=== PATIENT | male | born 1950 | race Caucasian/White ===

== ENCOUNTER 2018-01-08 16:14 | Inpatient (IN) | payer MEDICARE, BC ==
[2018-01-08] MEDS ORDERED: Aspirin 81 MG Tab.Chew PO ONE (16:27)
[2018-01-08] MEDS ORDERED: Sodium Chloride 0.9% 10 ML Syringe FLUSH PRN (16:27)
[2018-01-08] MEDS ORDERED: Sodium Chloride 0.9% 1,000 ML IV SCH ×2 (16:30→20:15)
[2018-01-08] MEDS ORDERED: Diltiazem 25 MG/5 ML SDV IVPUSH ONE ×2 (16:35→17:16)
[2018-01-08] MEDS ORDERED: Diltiazem 125 MG in Sodium Chloride 0.9% 100 ML IV SCH ×2 (16:45→20:30)
--- NOTE | 2018-01-08 17:11 | EDM.PDOC ---
ED HPI GENERAL MEDICAL PROBLEM - General Chief Complaint: Chest Pain Stated Complaint: CHEST PAINS/JAW PAIN Time Seen by Provider: 01/08/18 16:27 Source of Information: Reports: Patient, Family History Limitations: Reports: No Limitations - History of Present Illness INITIAL COMMENTS - FREE TEXT/NARRATIVE: The patient presents with chest pain and palpitations. He was mowing the lawn today and doing some yard work. He came in to sit down and noticed his heart started racing. He has chest pain and shortness of breath. He has a history of A-fib. He was diagnosed a few years ago. He is on aspirin, cardizem, and metoprolol. 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 He says he goes in and out of it. He has no fever, chills, cough, abdominal pain, nausea or vomiting. Onset: Gradual Duration: Minutes: Location: Reports: Chest Quality: Reports: Pressure Severity: Moderate Improves with: Reports: None Worsens with: Reports: None Associated Symptoms: Reports: Chest Pain, Shortness of Breath. Denies: Cough, Fever/Chills, Headaches, Nausea/Vomiting Treatments [employer]: Reports: Other (see below) Other Treatments [employer]: pt is on baby aspirin Chest Pain Score (Numeric/FACES): 8 - Related Data Allergies Allergy/AdvReac Type Severity Reaction Status Date / Time No Known Allergies Allergy Verified 01/09/15 10:08 Home Meds: Home Meds Aspirin [Roseanne Chewable Aspirin] 81 mg PO DAILY 02/18/14 [History] Hydrochlorothiazide 25 mg PO DAILY 02/18/14 [History] Metoprolol Tartrate 100 mg PO DAILY 02/18/14 [History] Multivitamin/Iron/Folic Acid [Centrum Complete Multivit] 1 each PO DAILY [History] atorvaSTATin [Lipitor] 40 mg PO DAILY 02/18/14 [History] Diltiazem [Cardizem CD] 120 mg PO DAILY 01/08/18 [History] [place]-3/DHA/Epa/Fish Oil [[place]-3 Fish Oil 1,200 MG Sfgl] 3,000 mg PO DAILY [History] Past Medical History Other HEENT History: Eye glasses Cardiovascular History: Reports: Afib, High Cholesterol, Hypertension, Other ( See Below) Other Cardiovascular History: cardioverted Genitourinary History: Reports: Renal Calculus Musculoskeletal History: Reports: Back Pain, Chronic, Gout Other Dermatologic History: conerned for cancerous moles- doctor says they are okay Social & Family History - Tobacco Use Smoking Status *Q: Former Smoker Used Tobacco, but Quit: Yes Month/Year Tobacco Last Used: 19yrs - Caffeine Use Caffeine Use: Reports: Coffee - Recreational Drug Use Recreational Drug Use: No ED ROS GENERAL - Review of Systems Review Of Systems: See Below Constitutional: Reports: No Symptoms HEENT: Reports: No Symptoms Respiratory: Reports: Shortness of Breath Cardiovascular: Reports: Chest Pain, Palpitations Endocrine: Reports: No Symptoms GI/Abdominal: Reports: No Symptoms : Reports: No Symptoms Musculoskeletal: Reports: No Symptoms ED EXAM, GENERAL - Physical Exam Exam: See Below Exam Limited By: No Limitations General Appearance: Alert, No Apparent Distress Ears: Normal External Exam Nose: Normal Inspection Head: Atraumatic, Normocephalic Neck: Normal Inspection Respiratory/Chest: No Respiratory Distress, Lungs Clear, Normal Breath Sounds Cardiovascular: Tachycardia, Irregularly Irregular GI/Abdominal: Soft, Non-Tender, No Organomegaly, No Mass Extremities: Normal Inspection Neurological: Alert, Oriented, No Motor/Sensory Deficits EKG INTERPRETATION EKG Date: 01/08/18 Time: 16:22 Rhythm: A-Fib Rate (Beats/Min): 163 [place]: LAD-Left [place] Deviation QRS: Wide QT: Prolonged Course - Vital Signs Last Recorded V/S: Last Vital Signs Temp 97.1 F 01/08/18 16:24 Pulse 157 H 01/08/18 16:24 Resp 20 01/08/18 16:24 BP 94/76 01/08/18 18:11 Pulse Ox 99 01/08/18 16:24 - Orders/Labs/Meds Orders: Active Orders 24 hr Category Date Time Status Cardiac Monitoring [RC] . DIRECTED Care 01/08/18 16:27 Active EKG Documentation Completion [RC] STAT Care 01/08/18 16:28 Active Peripheral IV Care [RC] . DIRECTED Care 01/08/18 16:28 Active Chest 1V Frontal [CR] Stat Exams 01/08/18 16:28 Taken Amiodarone In Dextrose,Iso-Osm [Nexterone in Dextrose Med 01/08/18 18:30 Active 360 MG/200 ML] 360 mg in 200 ml IV ASDIRECTED Diltiazem 125 mg Med 01/08/18 16:45 Active Sodium Chloride 0.9% [Normal Saline] 100 ml IV TITRATE Sodium Chloride 0.9% [Normal Saline] 1,000 ml Med 01/08/18 16:30 Active IV ASDIRECTED Sodium Chloride 0.9% [Saline Flush] Med 01/08/18 16:27 Active 10 ml FLUSH ASDIRECTED PRN Peripheral IV Insertion Adult [OM.PC] Stat Oth 01/08/18 16:27 Ordered Medication Orders Sodium Chloride (Normal Saline) 1,000 mls @ 125 mls/hr IV ASDIRECTED MARYCARMEN Last Admin: 01/08/18 16:37 Dose: 125 mls/hr Diltiazem HCl 125 mg/ Sodium (Chloride) 125 mls @ 10 mls/hr IV TITRATE MARYCARMEN; Protocol Last Titration: 01/08/18 18:10 Dose: 0 mg/hr, 0 mls/hr Admin: 01/08/18 16:53 Dose: 10 mg/hr, 10 mls/hr Amiodarone HCl/Dextrose (Nexterone In Dextrose 360 Mg/200 Ml) 360 mg in 200 mls @ 33.333 mls/hr IV ASDIRECTED MARYCARMEN; Protocol Last Admin: 01/08/18 18:38 Dose: 33.333 mls/hr Sodium Chloride (Saline Flush) 10 ml FLUSH ASDIRECTED PRN PRN Reason: Keep Vein Open Last Admin: 01/08/18 16:37 Dose: 10 ml Labs: Laboratory Tests 01/08/18 01/08/18 Range/Units 16:30 16:30 WBC 11.45 H (4.23-9.07) K/mm3 RBC 4.79 (4.63-6.08) M/mm3 Hgb 15.6 (13.7-17.5) gm/L Hct 46.2 (40.1-51.0) % MCV 96.5 H (79.0-92.2) fl MCH 32.6 H (25.7-32.2) pg MCHC 33.8 (32.2-35.5) g/dl RDW Std Deviation 43.6 (35.1-43.9) fL Plt Count 223 (163-337) K/mm3 MPV 9.0 L (9.4-12.3) fl Neut % (Auto) 65.5 (34.0-67.9) % Lymph % (Auto) 22.7 (21.8-53.1) % Page % (Auto) 10.4 (5.3-12.2) % Eos % (Auto) 0.8 (0.8-7.0) Baso % (Auto) 0.3 (0.1-1.2) % Neut # (Auto) 7.51 H (1.78-5.38) K/mm3 Lymph # (Auto) 2.60 (1.32-3.57) K/mm3 Page # (Auto) 1.19 H (0.30-0.82) K/mm3 Eos # (Auto) 0.09 (0.04-0.54) K/mm3 Baso # (Auto) 0.03 (0.01-0.08) K/mm3 Sodium 141 (136-145) mEq/L Potassium 3.3 L (3.5-5.1) mEq/L Chloride 105 (98-107) mEq/L Carbon Dioxide 24 (21-32) mEq/L Anion Gap 15.3 H (5-15) BUN 21 H (7-18) mg/dL Creatinine 1.1 (0.7-1.3) mg/dL Est Cr Clr Drug Dosing 61.32 mL/min Estimated GFR (MDRD) > 60 (>60) mL/min BUN/Creatinine Ratio 19.1 H (14-18) Glucose 103 (80-115) mg/dL Calcium 9.7 (8.5-10.1) mg/dL Total Bilirubin 0.5 (0.2-1.0) mg/dL AST 43 H (15-37) U/L ALT 68 H (16-63) U/L Alkaline Phosphatase 55 (46-116) U/L Troponin I 0.031 (0.00-0.056) ng/mL Total Protein 7.1 (6.4-8.2) g/dl Albumin 3.8 (3.4-5.0) g/dl Globulin 3.3 gm/dL Albumin/Globulin Ratio 1.2 (1-2) Meds: Medications Generic Name Dose Route Start Last Admin Trade Name Freq PRN Reason Stop Dose Admin Sodium Chloride 1,000 mls @ 125 mls/hr 01/08/18 16:30 01/08/18 16:37 Normal Saline IV 125 mls/hr ASDIRECTED MARYCARMEN Administration Diltiazem HCl 125 mg/ Sodium 125 mls @ 10 mls/hr 01/08/18 16:45 01/08/18 18: 10 Chloride IV 0 mg/hr TITRATE MARYCARMEN 0 mls/hr Titration Protocol 10 MG/HR Amiodarone HCl/Dextrose 360 mg in 200 mls @ 33.333 mls/hr 01/08/18 18:30 18:38 Nexterone In Dextrose 360 Mg/200 Ml IV 33.333 mls/hr ASDIRECTED MARYCARMEN Administration Protocol Sodium Chloride 10 ml 01/08/18 16:27 01/08/18 16:37 Saline Flush FLUSH 10 ml ASDIRECTED PRN Administration Keep Vein Open Discontinued Medications Generic Name Dose Route Start Last Admin Trade Name Freq PRN Reason Stop Dose Admin Aspirin 324 mg 01/08/18 16:27 01/08/18 16:35 Aspirin PO 01/08/18 16:28 324 mg ONETIME ONE Administration Diltiazem HCl 10 mg 01/08/18 16:35 01/08/18 16:45 Diltiazem IVPUSH 01/08/18 16:36 10 mg ONETIME ONE Administration Diltiazem HCl 10 mg 01/08/18 17:16 01/08/18 17:20 Diltiazem IVPUSH 01/08/18 17:17 10 mg ONETIME ONE Administration Amiodarone HCl 150 mg/ 103 mls @ 600 mls/hr 01/08/18 17:56 01/08/18 18:11 Dextrose/Water IV 01/08/18 18:06 600 mls/hr .BOLUS ONE Administration - Re-Assessments/Exams Free Text/Narrative Re-Assessment/Exam: 01/08/18 17:29 I ordered an IV NS 125mL/hr, EKG, CXR, labs, cardizem bolus of 10mg and a drip of 10mg/hr. 01/08/18 17:30 His EKG shows A-fib at 163. He does have a new block as compared to the old EKG. His WBC was slightly elevated at 11.45. His K was low at 3.3. His anion gap was elevated at 15.3. His AST was elevated at 43. His ALT was elevated at 68. His troponin was negative. His rate has gone down only a little so I ordered another dose of cardizem 10mg IV bolus. 01/08/18 18:08 His rate did not change much. He is still having chest pain. I stopped the cardizem drip and I will give him amiodarone 150mg IV. 01/08/18 18:43 He would slow down at times to around 118 and then go back up the 140s. I feel he needs to be admitted. He says his chest pain is better now. I called Dr Davis and he agreed to the admission. Departure - Departure Time of Disposition: 18:50 Disposition: Admitted As Inpatient 64 Condition: Serious Clinical Impression: Atrial fibrillation with RVR Chest pain Qualifiers: Chest pain type: unspecified Qualified Code(s): R07.9 - Chest pain, unspecified Referrals: Amish Melchor MD [Primary Care Provider] - Forms: ED Department Discharge - My Orders Last 24 Hours: My Active Orders 01/08/18 16:27 Cardiac Monitoring [RC] . DIRECTED Sodium Chloride 0.9% [Saline Flush] 10 ml FLUSH ASDIRECTED PRN Peripheral IV Insertion Adult [OM.PC] Stat 01/08/18 16:28 EKG Documentation Completion [RC] STAT Peripheral IV Care [RC] . DIRECTED Chest 1V Frontal [CR] Stat 01/08/18 16:30 Sodium Chloride 0.9% [Normal Saline] 1,000 ml IV ASDIRECTED 01/08/18 16:45 Diltiazem 125 mg Sodium Chloride 0.9% [Normal Saline] 100 ml IV TITRATE 01/08/18 18:30 Amiodarone In Dextrose,Iso-Osm [Nexterone in Dextrose 360 MG/200 ML] 360 mg in 200 ml IV ASDIRECTED - Assessment/Plan Last 24 Hours: My Active Orders 01/08/18 16:27 Cardiac Monitoring [RC] . DIRECTED Sodium Chloride 0.9% [Saline Flush] 10 ml FLUSH ASDIRECTED PRN Peripheral IV Insertion Adult [OM.PC] Stat 01/08/18 16:28 EKG Documentation Completion [RC] STAT Peripheral IV Care [RC] . DIRECTED Chest 1V Frontal [CR] Stat 01/08/18 16:30 Sodium Chloride 0.9% [Normal Saline] 1,000 ml IV ASDIRECTED 01/08/18 16:45 Diltiazem 125 mg Sodium Chloride 0.9% [Normal Saline] 100 ml IV TITRATE 01/08/18 18:30 Amiodarone In Dextrose,Iso-Osm [Nexterone in Dextrose 360 MG/200 ML] 360 mg in 200 ml IV ASDIRECTED
[2018-01-08] MEDS ORDERED: Amiodarone 150 MG in Dextrose 5% in Water 100 ML IV ONE ×2 (17:56)
[2018-01-08] MEDS ORDERED: LORazepam 2 MG/ML SDV IVPUSH PRN (19:35)
[2018-01-08] MEDS ORDERED: Metoprolol Tartrate 5 MG/5 ML SDV IVPUSH PRN (19:35)
[2018-01-08] MEDS ORDERED: hydrALAZINE 20 MG/ML SDV IVPUSH PRN (19:35)
[2018-01-08] MEDS ORDERED: Diltiazem 100 MG in Sodium Chloride 0.9% 100 ML IV SCH (20:00)
[2018-01-08] MEDS ORDERED: Potassium Chloride 20 MEQ Tab.ER PO SCH (20:00)
[2018-01-08] MEDS ORDERED: Bisacodyl 5 MG Tab PO PRN (20:06)
[2018-01-08] MEDS ORDERED: Docusate Sodium 100 MG Cap PO PRN (20:06)
[2018-01-08] MEDS ORDERED: Acetaminophen 325 MG Tab PO PRN (20:06)
[2018-01-08] MEDS ORDERED: Polyethylene Glycol 3350 Powder 17 GM Packet PO PRN (20:06)
[2018-01-08] MEDS ORDERED: Promethazine 12.5 MG in Sodium Chloride 0.9% 50 ML IV PRN (20:06)
[2018-01-08] MEDS ORDERED: Temazepam 15 MG Cap PO PRN (20:06)
[2018-01-08] MEDS ORDERED: Acetaminophen/HYDROcodone 325-5 MG Tab PO PRN (20:06)
[2018-01-08] MEDS ORDERED: Ondansetron 4 MG/2 ML SDV IV PRN (20:06)
[2018-01-08] MEDS ORDERED: HYDROmorphone 0.5 MG/0.5 ML SYRINGE IVPUSH PRN (20:06)
[2018-01-08] MEDS ORDERED: Albuterol/Ipratropium 3.0-0.5 MG/3 ML Neb Soln NEB PRN (20:06)
[2018-01-08] MEDS ORDERED: Potassium Chloride 20 MEQ Tab.ER PO ONE (20:07)
--- NOTE | 2018-01-08 21:17 | PCM.HP ---
H&P History of Present Illness - General Date of Service: 01/08/18 Admit Problem/Dx: Admission Diagnosis/Problem Admission Diagnosis/Problem Atrial fibrillation Source of Information: Patient, Family, Old Records, Provider, RN Notes Reviewed History Limitations: Reports: No Limitations - History of Present Illness Initial Comments - Free Text/Narative: This is a 67 yo white male with past medical hx/o atrial fibrillation not on anticoagulation, hypertension, hyperlipidemia, history of kidney stone, chronic back pain, gout, who presents to the emergency department with complaints of chest pain and heart palpitation after exertion. Patient did some yard work today and while he was resting on his chair, he notices his heart starting to race. And following heart palpitation, he started to have chest pain along with shortness of breath. He is currently on aspirin for stroke prophylaxis and Cardizem/Metoprolol for rate control medications. He follows JENNIE Vasquez for his routine cardiac care. Patient denies any other issues. His initial workup in emergency department shows a CBC remarkable for WBC of 11.45, MCV of 96.5, MCH of 19 2.6, MPV of 9, neutrophil count of 7.51, and monocytes of 1.19. His chemistry is remarkable for potassium of 3.3, anion gap of 15.3, BUN of 21, AST of 43, and ALT of 60. His initial troponin level is 0.031. Thyroid panel is normal. Initial EKG taken at 4:22 in ED shows atrial fibrillation with heart rate of 163 with left bundle bunch block. Patient received initial treatment in the emergency department with Cardizem drip. Unfortunately he was intolerant and was switched toAamiodarone drip and subsequently sent to the unit for further management. He is being admitted for atrial fibrillation with RVR and Chest Pain rule out ACS. He is full code. Chest Pain Score (Numeric/FACES): 8 - Related Data Allergies/Adverse Reactions: Allergies Allergy/AdvReac Type Severity Reaction Status Date / Time No Known Allergies Allergy Verified 01/09/15 10:08 Home Medications: Home Meds Aspirin [Roseanne Chewable Aspirin] 81 mg PO DAILY 02/18/14 [History] Hydrochlorothiazide 25 mg PO DAILY 02/18/14 [History] Multivitamin/Iron/Folic Acid [Centrum Complete Multivit] 1 each PO DAILY 06/29/ 14 [History] atorvaSTATin [Lipitor] 40 mg PO DAILY 02/18/14 [History] Diltiazem [Cardizem CD] 120 mg PO DAILY 01/08/18 [History] [place]-3/DHA/Epa/Fish Oil [[place]-3 Fish Oil 1,200 MG Sfgl] 3,000 mg PO DAILY [History] Metoprolol Tartrate 100 mg PO DAILY 01/09/18 [History] Past Medical History Other HEENT History: Eye glasses Cardiovascular History: Reports: Afib, High Cholesterol, Hypertension, Other ( See Below) Other Cardiovascular History: cardioverted Respiratory History: Reports: Sleep Apnea Genitourinary History: Reports: Renal Calculus Musculoskeletal History: Reports: Back Pain, Chronic, Gout Other Dermatologic History: conerned for cancerous moles- doctor says they are okay Social & Family History - Tobacco Use Smoking Status *Q: Former Smoker Used Tobacco, but Quit: Yes Month/Year Tobacco Last Used: 19yrs - Caffeine Use Caffeine Use: Reports: Coffee - Recreational Drug Use Recreational Drug Use: No H&P Review of Systems - Review of Systems: Review Of Systems: See Below General: Reports: Fever, Chills, Malaise, Weakness HEENT: Reports: No Symptoms Pulmonary: Reports: Shortness of Breath, Pleuritic Chest Pain Cardiovascular: Reports: Chest Pain, Palpitations, Lightheadedness, Syncope, Blood Pressure Problem. Denies: Dyspnea on Exertion, Orthopnea, Edema Gastrointestinal: Denies: Abdominal Pain, Nausea, Vomiting Genitourinary: Reports: No Symptoms Musculoskeletal: Reports: Shoulder Pain Skin: Reports: Mottled, Diaphoresis. Denies: Cyanosis, Pallor Psychiatric: Denies: Depression, Anxiety, Agitation Neurological: Reports: Confusion, Trouble Speaking, Gait Disturbance. Denies: Syncope, Difficulty Walking, Weakness Hematologic/Lymphatic: Reports: No Symptoms Immunologic: Reports: No Symptoms Exam - Exam Exam: See Below - Vital Signs Vital Signs: Last Vital Signs Temp 36.5 C 01/08/18 19:30 Pulse 157 H 01/08/18 16:24 Resp 26 H 01/08/18 19:30 BP 98/76 01/08/18 19:30 Pulse Ox 95 01/08/18 19:30 Weight: 108.862 kg - Exam General: Alert, Oriented, Cooperative. No: Mild Distress HEENT: Conjunctiva Clear, EACs Clear, EOMI, Hearing Intact, Mucosa Moist & [place] , Nares Patent, Normal Nasal Septum, Posterior Pharynx Clear, Pupils Equal, Pupils Reactive Neck: Supple, Trachea Midline Lungs: Clear to Auscultation, Normal Respiratory Effort Cardiovascular: Irregular Rhythm, Other (Irregular rate) GI/Abdominal Exam: Normal Bowel Sounds, Soft, Non-Tender, No Organomegaly, No Distention, No Abnormal Bruit, No Mass (Male) Exam: Deferred Rectal (Males) Exam: Deferred Back Exam: Normal Inspection, Decreased Range of Motion Extremities: Normal Inspection, Normal Range of Motion, Non-Tender, No Pedal Edema, Normal Capillary Refill Peripheral Pulses: 3+: Posterior Tibial (L), Posterior Tibial (R), Dorsalis Pedis (L), Dorsalis Pedis (R) Skin: Warm, Dry, Intact Neuro Extensive - Mental Status: Oriented x3, Normal Cognition, Memory Intact Neuro Extensive - Motor, Sensory, Reflexes: CN II-XII Intact, Normal Gait Psychiatric: Alert, Normal Affect, Normal Mood - Patient Data Lab Results Last 24 hrs: Laboratory Results - last 24 hr 01/08/18 01/08/18 01/08/18 Range/Units 16:30 16:30 16:30 WBC 11.45 H (4.23-9.07) K/mm3 RBC 4.79 (4.63-6.08) M/mm3 Hgb 15.6 (13.7-17.5) gm/L Hct 46.2 (40.1-51.0) % MCV 96.5 H (79.0-92.2) fl MCH 32.6 H (25.7-32.2) pg MCHC 33.8 (32.2-35.5) g/dl RDW Std Deviation 43.6 (35.1-43.9) fL Plt Count 223 (163-337) K/mm3 MPV 9.0 L (9.4-12.3) fl Neut % (Auto) 65.5 (34.0-67.9) % Lymph % (Auto) 22.7 (21.8-53.1) % [place] % (Auto) 10.4 (5.3-12.2) % Eos % (Auto) 0.8 (0.8-7.0) Baso % (Auto) 0.3 (0.1-1.2) % Neut # (Auto) 7.51 H (1.78-5.38) K/mm3 Lymph # (Auto) 2.60 (1.32-3.57) K/mm3 [place] # (Auto) 1.19 H (0.30-0.82) K/mm3 Eos # (Auto) 0.09 (0.04-0.54) K/mm3 Baso # (Auto) 0.03 (0.01-0.08) K/mm3 Sodium 141 (136-145) mEq/L Potassium 3.3 L (3.5-5.1) mEq/L Chloride 105 (98-107) mEq/L Carbon Dioxide 24 (21-32) mEq/L Anion Gap 15.3 H (5-15) BUN 21 H (7-18) mg/dL Creatinine 1.1 (0.7-1.3) mg/dL Est Cr Clr Drug Dosing 61.32 mL/min Estimated GFR (MDRD) > 60 (>60) mL/min BUN/Creatinine Ratio 19.1 H (14-18) Glucose 103 (80-115) mg/dL Calcium 9.7 (8.5-10.1) mg/dL Magnesium (1.8-2.4) mg/dl Total Bilirubin 0.5 (0.2-1.0) mg/dL AST 43 H (15-37) U/L ALT 68 H (16-63) U/L Alkaline Phosphatase 55 (46-116) U/L Troponin I 0.031 (0.00-0.056) ng/mL Total Protein 7.1 (6.4-8.2) g/dl Albumin 3.8 (3.4-5.0) g/dl Globulin 3.3 gm/dL Albumin/Globulin Ratio 1.2 (1-2) Free T4 0.93 (0.76-1.46) ng/dL TSH 3rd Generation 3.566 (0.358-3.74) uIU/mL 01/08/18 Range/Units 16:30 WBC (4.23-9.07) K/mm3 RBC (4.63-6.08) M/mm3 Hgb (13.7-17.5) gm/L Hct (40.1-51.0) % MCV (79.0-92.2) fl MCH (25.7-32.2) pg MCHC (32.2-35.5) g/dl RDW Std Deviation (35.1-43.9) fL Plt Count (163-337) K/mm3 MPV (9.4-12.3) fl Neut % (Auto) (34.0-67.9) % Lymph % (Auto) (21.8-53.1) % [place] % (Auto) (5.3-12.2) % Eos % (Auto) (0.8-7.0) Baso % (Auto) (0.1-1.2) % Neut # (Auto) (1.78-5.38) K/mm3 Lymph # (Auto) (1.32-3.57) K/mm3 [place] # (Auto) (0.30-0.82) K/mm3 Eos # (Auto) (0.04-0.54) K/mm3 Baso # (Auto) (0.01-0.08) K/mm3 Sodium (136-145) mEq/L Potassium (3.5-5.1) mEq/L Chloride (98-107) mEq/L Carbon Dioxide (21-32) mEq/L Anion Gap (5-15) BUN (7-18) mg/dL Creatinine (0.7-1.3) mg/dL Est Cr Clr Drug Dosing mL/min Estimated GFR (MDRD) (>60) mL/min BUN/Creatinine Ratio (14-18) Glucose (80-115) mg/dL Calcium (8.5-10.1) mg/dL Magnesium 2.0 (1.8-2.4) mg/dl Total Bilirubin (0.2-1.0) mg/dL AST (15-37) U/L ALT (16-63) U/L Alkaline Phosphatase (46-116) U/L Troponin I (0.00-0.056) ng/mL Total Protein (6.4-8.2) g/dl Albumin (3.4-5.0) g/dl Globulin gm/dL Albumin/Globulin Ratio (1-2) Free T4 (0.76-1.46) ng/dL TSH 3rd Generation (0.358-3.74) uIU/mL Result Diagrams: 01/09/18 04:40 01/09/18 04:40 EKG INTERPRETATION EKG Date: 01/08/18 Time: 22:18 Rhythm: A-Fib Rate (Beats/Min): 118 QRS: LBBB Problem List Initiated/Reviewed/Updated: Yes Orders Last 24hrs: Active Orders 24 hr Category Date Time Status Admission Status [Patient Status] [ADT] Routine ADT 01/08/18 19:24 Active Cardiac Monitoring [RC] . DIRECTED Care 01/08/18 16:27 Active Height and Weight [RC] DAILY Care 01/08/18 20:06 Active Intake and Output [RC] QSHIFT Care 01/08/18 20:07 Active Oxygen Therapy [RC] PRN Care 01/08/18 19:38 Active Oxygen Therapy [RC] PRN Care 01/08/18 20:06 Active Peripheral IV Care [RC] . DIRECTED Care 01/08/18 16:28 Active RT Aerosol Therapy [RC] ASDIRECTED Care 01/08/18 20:09 Active Up ad Nancy [RC] ASDIRECTED Care 01/08/18 20:06 Active VTE/DVT Education [RC] PER UNIT ROUTINE Care 01/08/18 19:38 Active VTE/DVT Education [RC] PER UNIT ROUTINE Care 01/08/18 20:06 Active Vital Signs [RC] Q4H Care 01/08/18 19:38 Active Vital Signs [RC] Q4H Care 01/08/18 20:06 Active Consult to Case Management [CONS] Routine Cons 01/08/18 20:09 Active Heart Healthy Diet [DIET] Diet 01/08/18 Dinner Active Chest 1V Frontal [CR] Stat Exams 01/08/18 16:28 Taken Echo Comp wo Cont [US] Routine Exams 01/08/18 19:39 Ordered BASIC METABOLIC PANEL,BMP [CHEM] AM Lab 01/09/18 05:11 Ordered BASIC METABOLIC PANEL,BMP [CHEM] AM Lab 01/10/18 05:11 Ordered BASIC METABOLIC PANEL,BMP [CHEM] AM Lab 01/11/18 05:11 Ordered CBC WITH AUTO DIFF [HEME] AM Lab 01/09/18 05:11 Ordered MAGNESIUM [CHEM] AM Lab 01/09/18 05:11 Ordered MAGNESIUM [CHEM] AM Lab 01/10/18 05:11 Ordered MAGNESIUM [CHEM] AM Lab 01/11/18 05:11 Ordered MAGNESIUM [CHEM] AM Lab 01/12/18 05:11 Ordered TROPONIN I [CHEM] Routine Lab 01/08/18 22:30 Ordered TROPONIN I [CHEM] Routine Lab 01/09/18 04:30 Ordered TROPONIN I [CHEM] Routine Lab 01/09/18 10:30 Ordered Acetaminophen [Tylenol] Med 01/08/18 20:06 Active 650 mg PO Q4H PRN Acetaminophen/HYDROcodone [[place] 325-5 MG] Med 01/08/18 20:06 Active 1 tab PO Q4H PRN Albuterol/Ipratropium [DuoNeb 3.0-0.5 MG/3 ML] Med 01/08/18 20:06 Active 3 ml NEB Q4H PRN Amiodarone In Dextrose,Iso-Osm [Nexterone in Dextrose Med 01/08/18 18:30 Active 360 MG/200 ML] 360 mg in 200 ml IV ASDIRECTED Aspirin Med 01/09/18 09:00 Active 81 mg PO DAILY Bisacodyl [Dulcolax] Med 01/08/18 20:06 Active 5 mg PO DAILY PRN Diltiazem 125 mg Med 01/08/18 20:30 Active Sodium Chloride 0.9% [Normal Saline] 100 ml IV TITRATE Docusate Sodium [Colace] Med 01/08/18 20:06 Active 100 mg PO BID PRN Docusate Sodium/Sennosides [Senna Plus] Med 01/08/18 20:06 Active 1 tab PO BID PRN Fish Oil/[place]-3 Fatty Acids [Fish Oil] Med 01/09/18 09:00 Active 3 gm PO DAILY HYDROmorphone [Dilaudid] Med 01/08/18 20:06 Active 0.25 mg IVPUSH Q2H PRN LORazepam [Ativan] Med 01/08/18 19:35 Active 2 mg IVPUSH Q4H PRN Magnesium Rep Pharmacy to Dose [Pharmacy to Dose - Med 01/08/18 19:45 Pending Magnesium Replacement] 1 dose .XX ASDIRECTED Metoprolol Tartrate [Lopressor] Med 01/08/18 19:35 Active 5 mg IVPUSH Q4H PRN Metoprolol Tartrate [Metoprolol Tartrate] Med 01/09/18 09:00 Pending 50 mg PO BID Multivitamins/Min/FA/Lut/Zeax [ICaps MV] Med 01/09/18 09:00 Active 1 tab PO DAILY Ondansetron [Zofran] Med 01/08/18 20:06 Active 4 mg IV Q6H PRN Polyethylene Glycol 3350 [MiraLAX] Med 01/08/18 20:06 Active 17 gm PO DAILY PRN Potassium Rep Pharmacy to Dose [Pharmacy to Dose - Med 01/08/18 19:45 Pending Potassium Replacement] 1 dose .XX ASDIRECTED Promethazine [Phenergan] 12.5 mg Med 01/08/18 20:06 Active Sodium Chloride 0.9% [Normal Saline] 50 ml IV Q6H Rivaroxaban [Xarelto] Med 01/09/18 21:00 Pending 20 mg PO DAILY Rosuvastatin [Crestor] Med 01/09/18 09:00 Active 10 mg PO DAILY Sodium Chloride 0.9% [Normal Saline] 1,000 ml Med 01/08/18 20:15 Active IV ASDIRECTED Sodium Chloride 0.9% [Saline Flush] Med 01/08/18 16:27 Active 10 ml FLUSH ASDIRECTED PRN Temazepam [Restoril] Med 01/08/18 20:06 Active 15 mg PO BEDTIME PRN hydrALAZINE [Apresoline] Med 01/08/18 19:35 Active 20 mg IVPUSH Q4H PRN Peripheral IV Insertion Adult [OM.PC] Stat Oth 01/08/18 16:27 Ordered Resuscitation Status Routine Resus Stat 01/08/18 19:38 Ordered Medication Orders Acetaminophen (Tylenol) 650 mg PO Q4H PRN PRN Reason: Pain (Mild 1-3)/fever Hydrocodone Bitart/Acetaminophen ([place] 325-5 Mg) 1 tab PO Q4H PRN PRN Reason: Pain (moderate 4-6) Albuterol/Ipratropium (Duoneb 3.0-0.5 Mg/3 Ml) 3 ml NEB Q4H PRN PRN Reason: Shortness Of Breath/wheezing Aspirin (Aspirin) 81 mg PO DAILY [facility]ARYCARM[facility] Bisacodyl (Dulcolax) 5 mg PO DAILY PRN PRN Reason: Constipation Docusate Sodium (Colace) 100 mg PO BID PRN PRN Reason: Constipation Fish Oil (Fish Oil) 3 gm PO DAILY MARYCARMEN Hydralazine HCl (Apresoline) 20 mg IVPUSH Q4H PRN PRN Reason: Hypertension Hydromorphone HCl (Dilaudid) 0.25 mg IVPUSH Q2H PRN PRN Reason: Pain (severe 7-10) Amiodarone HCl/Dextrose (Nexterone In Dextrose 360 Mg/200 Ml) 360 mg in 200 mls @ 33.333 mls/hr IV ASDIRECTED [facility]; Protocol Last Admin: 01/08/18 18:38 Dose: 33.333 mls/hr Promethazine HCl 12.5 mg/ (Sodium Chloride) 50.5 mls @ 100 mls/hr IV Q6H PRN PRN Reason: Nausea/Vomiting Sodium Chloride (Normal Saline) 1,000 mls @ 30 mls/hr IV ASDIRECTED [facility] Diltiazem HCl 125 mg/ Sodium (Chloride) 125 mls @ 5 mls/hr IV TITRATE MARYCARMEN Last Infusion: 01/08/18 20:40 Dose: 5 mg/hr, 5 mls/hr Admin: 01/08/18 20:39 Dose: 5 mg/hr, 5 mls/hr Lorazepam (Ativan) 2 mg IVPUSH Q4H PRN PRN Reason: Seizures Magnesium Sulfate (Pharmacy To Dose - Magnesium Replacement) 1 dose .XX ASDIRECTED [facility] Metoprolol Tartrate (Lopressor) 5 mg IVPUSH Q4H PRN PRN Reason: Tachycardia Non-Formulary Medication (Metoprolol Tartrate [Metoprolol Tartrate]) 50 mg PO BID [facility] Ondansetron HCl (Zofran) 4 mg IV Q6H PRN PRN Reason: Nausea/Vomiting Polyethylene Glycol (Miralax) 17 gm PO DAILY PRN PRN Reason: Constipation Potassium Chloride (Pharmacy To Dose - Potassium Replacement) 1 dose .XX ASDIRECTED [facility] Rivaroxaban (Xarelto) 20 mg PO DAILY [facility] Rosuvastatin Calcium (Crestor) 10 mg PO DAILY [facility] Senna/Docusate Sodium (Senna Plus) 1 tab PO BID PRN PRN Reason: Constipation Sodium Chloride (Saline Flush) 10 ml FLUSH ASDIRECTED PRN PRN Reason: Keep Vein Open Last Admin: 01/08/18 16:37 Dose: 10 ml Temazepam (Restoril) 15 mg PO BEDTIME PRN PRN Reason: Sleep Vit A/Vit C/Vit E/Selen/Cu/Zn/Lutei (Icaps Mv) 1 tab PO DAILY [facility]ARYCARMEN Assessment/Plan Comment:: Assessment/Plan: Acute: Atrial Fibrillation with RVR - Sudden onset at rest; did some yard work before that - Admits to heavy caffeine intake but not ETOH; drinks coffee a alot - He does not smoke or use illicit drugs - He is on CCB and BB for rate control; he is not on anticoagulation except for ASA - He was started on Cardizem drip but was intolerant to it he is now on Amiodarone drip - Thyroid panel now Chest Pain with New onset of LB3 (reviewed old ekg) - Serial Troponin Level - ASA and BB - Lipid Panel in AM - AHA diet - 2D echo Wednesday if not outpatient Hypokalemia - K 3.3 - 2/2 inadequate intake - Replete and monitor Chronic: CHARAN on CPAP Hypertension Hyperlipidemia History of kidney stone Chronic back pain Gout Plan: Admit to ICU Routine AM labs Resume Home Meds ACS work up DVT/Stroke PPx: Xareljudson for now Code Status: 1
[2018-01-08] MEDS ORDERED: Rivaroxaban 10 MG Tab PO ONE (21:35)
[2018-01-08] MEDS ORDERED: 50% Dextrose in Water 50 ML Syringe IVPUSH STA (21:46)
[2018-01-08] MEDS ORDERED: Metoprolol Tartrate 5 MG in Sodium Chloride 0.9% 50 ML IV STA (22:06)
[2018-01-08] MEDS: Digoxin 500 MCG/2 ML Amp IVPUSH SCH ×2 (22:10→22:11)
[2018-01-08] MEDS ORDERED: Morphine 2 MG/ML Syringe IVPUSH STA (22:16)
[2018-01-08] MEDS ORDERED: Metoprolol Tartrate 25 MG Tab PO ONE (22:58)
--- NOTE | 2018-01-08 23:17 | PCM.SN ---
- Free Text/Narrative Note: Patient is not responding well with Amdiodarone drip. His heart rate remains in the 130s-140s. A closer look at his EKG and Tele show he is in atrial fibrillation with LB3. So we decided to stop the Amiodarone drip and continued with CCB drip and added Digoxin as well for optimal rate control. The patient responded immediately with heart rate's fluctuating in the upper 90-112.
[2018-01-08] MEDS ORDERED: Metoprolol Tartrate 50 MG Tab PO ONE (23:24)
[2018-01-09] MEDS: Digoxin 500 MCG/2 ML Amp IVPUSH SCH (04:18)
--- NOTE | 2018-01-09 06:43 | PCM.PN ---
- General Info Date of Service: 01/09/18 Admission Dx/Problem (Free Text): Admission Diagnosis/Problem Admission Diagnosis/Problem Atrial fibrillation Subjective Update: Follow up Functional Status: Reports: Pain Controlled, Tolerating Diet, Ambulating, Urinating. Denies: New Symptoms - Review of Systems General: Denies: Fever, Weakness, Fatigue, Malaise, Chills HEENT: Reports: No Symptoms Pulmonary: Denies: Shortness of Breath, Pleuritic Chest Pain, Cough Cardiovascular: Denies: Chest Pain, Palpitations, Dyspnea on Exertion, Lightheadedness Gastrointestinal: Denies: Abdominal Pain, Vomiting Genitourinary: Reports: No Symptoms Musculoskeletal: Denies: Shoulder Pain Skin: Denies: Pallor, Diaphoresis, Bruising Neurological: Denies: Confusion, Dizziness, Headache, Syncope, Difficulty Walking, Weakness, Gait Disturbance Psychiatric: Denies: Depression, Anxiety, Agitation, Hallucinations Systems Review Comment:: No overnight or acute issues. He did not sleep good last night but feels pretty good this morning. He has no complaints. His heart is now in the 60s and he is now off the Cardizem drip. He converted chemically overnight-now in sinus rhythm with his latest EKG and Tele. - Patient Data Vitals - Most Recent: Last Vital Signs Temp 36.4 C 01/09/18 03:38 Pulse 87 01/09/18 04:18 Resp 11 L 01/09/18 04:46 BP 117/65 01/09/18 04:46 Pulse Ox 94 L 01/09/18 04:15 Weight - Most Recent: 107.819 kg I&O - Last 24 Hours: Intake & Output 01/08/18 01/08/18 01/09/18 14:59 22:59 06:59 Intake Total 856 Output Total 275 500 Balance -275 356 Lab Results Last 24 Hours: Laboratory Results - last 24 hr 01/08/18 01/08/18 01/08/18 Range/Units 16:30 16:30 16:30 WBC 11.45 H (4.23-9.07) K/mm3 RBC 4.79 (4.63-6.08) M/mm3 Hgb 15.6 (13.7-17.5) gm/L Hct 46.2 (40.1-51.0) % MCV 96.5 H (79.0-92.2) fl MCH 32.6 H (25.7-32.2) pg MCHC 33.8 (32.2-35.5) g/dl RDW Std Deviation 43.6 (35.1-43.9) fL Plt Count 223 (163-337) K/mm3 MPV 9.0 L (9.4-12.3) fl Neut % (Auto) 65.5 (34.0-67.9) % Lymph % (Auto) 22.7 (21.8-53.1) % [place]ila % (Auto) 10.4 (5.3-12.2) % Eos % (Auto) 0.8 (0.8-7.0) Baso % (Auto) 0.3 (0.1-1.2) % Neut # (Auto) 7.51 H (1.78-5.38) K/mm3 Lymph # (Auto) 2.60 (1.32-3.57) K/mm3 [place] # (Auto) 1.19 H (0.30-0.82) K/mm3 Eos # (Auto) 0.09 (0.04-0.54) K/mm3 Baso # (Auto) 0.03 (0.01-0.08) K/mm3 Sodium 141 (136-145) mEq/L Potassium 3.3 L (3.5-5.1) mEq/L Chloride 105 (98-107) mEq/L Carbon Dioxide 24 (21-32) mEq/L Anion Gap 15.3 H (5-15) BUN 21 H (7-18) mg/dL Creatinine 1.1 (0.7-1.3) mg/dL Est Cr Clr Drug Dosing 61.32 mL/min Estimated GFR (MDRD) > 60 (>60) mL/min BUN/Creatinine Ratio 19.1 H (14-18) Glucose 103 (80-115) mg/dL Calcium 9.7 (8.5-10.1) mg/dL Magnesium (1.8-2.4) mg/dl Total Bilirubin 0.5 (0.2-1.0) mg/dL AST 43 H (15-37) U/L ALT 68 H (16-63) U/L Alkaline Phosphatase 55 (46-116) U/L Troponin I 0.031 (0.00-0.056) ng/mL Total Protein 7.1 (6.4-8.2) g/dl Albumin 3.8 (3.4-5.0) g/dl Globulin 3.3 gm/dL Albumin/Globulin Ratio 1.2 (1-2) Triglycerides (<150) mg/dL Cholesterol (<200) mg/dL LDL Cholesterol Direct (<100) mg/dL HDL Cholesterol (40-59) mg/dL Free T4 0.93 (0.76-1.46) ng/dL TSH 3rd Generation 3.566 (0.358-3.74) uIU/mL Urine Opiates Screen (NEGATIVE) Ur Buprenorphine Scrn (NEGATIVE) Ur Oxycodone Screen (NEGATIVE) Urine Methadone Screen (NEGATIVE) Ur Propoxyphene Screen (NEGATIVE) Ur Barbiturates Screen (NEGATIVE) Ur Tricyclics Screen (NEGATIVE) Ur Phencyclidine Scrn (NEGATIVE) Ur Amphetamine Screen (NEGATIVE) U Methamphetamines Scrn (NEGATIVE) U Benzodiazepines Scrn (NEGATIVE) U Cocaine Metab Screen (NEGATIVE) U Marijuana (THC) Screen (NEGATIVE) 01/08/18 01/08/18 01/08/18 Range/Units 16:30 22:15 22:45 WBC (4.23-9.07) K/mm3 RBC (4.63-6.08) M/mm3 Hgb (13.7-17.5) gm/L Hct (40.1-51.0) % MCV (79.0-92.2) fl MCH (25.7-32.2) pg MCHC (32.2-35.5) g/dl RDW Std Deviation (35.1-43.9) fL Plt Count (163-337) K/mm3 MPV (9.4-12.3) fl Neut % (Auto) (34.0-67.9) % Lymph % (Auto) (21.8-53.1) % [place]ila % (Auto) (5.3-12.2) % Eos % (Auto) (0.8-7.0) Baso % (Auto) (0.1-1.2) % Neut # (Auto) (1.78-5.38) K/mm3 Lymph # (Auto) (1.32-3.57) K/mm3 [place] # (Auto) (0.30-0.82) K/mm3 Eos # (Auto) (0.04-0.54) K/mm3 Baso # (Auto) (0.01-0.08) K/mm3 Sodium (136-145) mEq/L Potassium (3.5-5.1) mEq/L Chloride (98-107) mEq/L Carbon Dioxide (21-32) mEq/L Anion Gap (5-15) BUN (7-18) mg/dL Creatinine (0.7-1.3) mg/dL Est Cr Clr Drug Dosing mL/min Estimated GFR (MDRD) (>60) mL/min BUN/Creatinine Ratio (14-18) Glucose (80-115) mg/dL Calcium (8.5-10.1) mg/dL Magnesium 2.0 (1.8-2.4) mg/dl Total Bilirubin (0.2-1.0) mg/dL AST (15-37) U/L ALT (16-63) U/L Alkaline Phosphatase (46-116) U/L Troponin I 0.060 H* (0.00-0.056) ng/mL Total Protein (6.4-8.2) g/dl Albumin (3.4-5.0) g/dl Globulin gm/dL Albumin/Globulin Ratio (1-2) Triglycerides (<150) mg/dL Cholesterol (<200) mg/dL LDL Cholesterol Direct (<100) mg/dL HDL Cholesterol (40-59) mg/dL Free T4 (0.76-1.46) ng/dL TSH 3rd Generation (0.358-3.74) uIU/mL Urine Opiates Screen Negative (NEGATIVE) Ur Buprenorphine Scrn Negative (NEGATIVE) Ur Oxycodone Screen Negative (NEGATIVE) Urine Methadone Screen Negative (NEGATIVE) Ur Propoxyphene Screen Negative (NEGATIVE) Ur Barbiturates Screen Negative (NEGATIVE) Ur Tricyclics Screen Negative (NEGATIVE) Ur Phencyclidine Scrn Negative (NEGATIVE) Ur Amphetamine Screen Negative (NEGATIVE) U Methamphetamines Scrn Negative (NEGATIVE) U Benzodiazepines Scrn Negative (NEGATIVE) U Cocaine Metab Screen Negative (NEGATIVE) U Marijuana (THC) Screen Negative (NEGATIVE) 01/09/18 01/09/18 01/09/18 Range/Units 04:40 04:40 04:40 WBC 9.07 (4.23-9.07) K/mm3 RBC 4.52 L (4.63-6.08) M/mm3 Hgb 14.7 (13.7-17.5) gm/L Hct 44.4 (40.1-51.0) % MCV 98.2 H (79.0-92.2) fl MCH 32.5 H (25.7-32.2) pg MCHC 33.1 (32.2-35.5) g/dl RDW Std Deviation 46.5 H (35.1-43.9) fL Plt Count 206 (163-337) K/mm3 MPV 9.2 L (9.4-12.3) fl Neut % (Auto) 61.9 (34.0-67.9) % Lymph % (Auto) 26.6 (21.8-53.1) % [place] % (Auto) 10.1 (5.3-12.2) % Eos % (Auto) 0.8 (0.8-7.0) Baso % (Auto) 0.3 (0.1-1.2) % Neut # (Auto) 5.61 H (1.78-5.38) K/mm3 Lymph # (Auto) 2.41 (1.32-3.57) K/mm3 [place] # (Auto) 0.92 H (0.30-0.82) K/mm3 Eos # (Auto) 0.07 (0.04-0.54) K/mm3 Baso # (Auto) 0.03 (0.01-0.08) K/mm3 Sodium 146 H (136-145) mEq/L Potassium 4.1 (3.5-5.1) mEq/L Chloride 110 H (98-107) mEq/L Carbon Dioxide 24 (21-32) mEq/L Anion Gap 16.1 H (5-15) BUN 20 H (7-18) mg/dL Creatinine 0.9 (0.7-1.3) mg/dL Est Cr Clr Drug Dosing 74.94 mL/min Estimated GFR (MDRD) > 60 (>60) mL/min BUN/Creatinine Ratio 22.2 H (14-18) Glucose 126 H (80-115) mg/dL Calcium 9.1 (8.5-10.1) mg/dL Magnesium 2.3 (1.8-2.4) mg/dl Total Bilirubin (0.2-1.0) mg/dL AST (15-37) U/L ALT (16-63) U/L Alkaline Phosphatase (46-116) U/L Troponin I 0.130 H* (0.00-0.056) ng/mL Total Protein (6.4-8.2) g/dl Albumin (3.4-5.0) g/dl Globulin gm/dL Albumin/Globulin Ratio (1-2) Triglycerides 235 H (<150) mg/dL Cholesterol 83 (<200) mg/dL LDL Cholesterol Direct 35 (<100) mg/dL HDL Cholesterol 24.0 L (40-59) mg/dL Free T4 (0.76-1.46) ng/dL TSH 3rd Generation (0.358-3.74) uIU/mL Urine Opiates Screen (NEGATIVE) Ur Buprenorphine Scrn (NEGATIVE) Ur Oxycodone Screen (NEGATIVE) Urine Methadone Screen (NEGATIVE) Ur Propoxyphene Screen (NEGATIVE) Ur Barbiturates Screen (NEGATIVE) Ur Tricyclics Screen (NEGATIVE) Ur Phencyclidine Scrn (NEGATIVE) Ur Amphetamine Screen (NEGATIVE) U Methamphetamines Scrn (NEGATIVE) U Benzodiazepines Scrn (NEGATIVE) U Cocaine Metab Screen (NEGATIVE) U Marijuana (THC) Screen (NEGATIVE) Med Orders - Current: Current Medications Acetaminophen (Tylenol) 650 mg PO Q4H PRN PRN Reason: Pain (Mild 1-3)/fever Hydrocodone Bitart/Acetaminophen ([place] 325-5 Mg) 1 tab PO Q4H PRN PRN Reason: Pain (moderate 4-6) Albuterol/Ipratropium (Duoneb 3.0-0.5 Mg/3 Ml) 3 ml NEB Q4H PRN PRN Reason: Shortness Of Breath/wheezing Aspirin (Aspirin) 81 mg PO DAILY MARYCARMEN Bisacodyl (Dulcolax) 5 mg PO DAILY PRN PRN Reason: Constipation Docusate Sodium (Colace) 100 mg PO BID PRN PRN Reason: Constipation Fish Oil (Fish Oil) 3 gm PO DAILY MARYCARMEN Hydralazine HCl (Apresoline) 20 mg IVPUSH Q4H PRN PRN Reason: Hypertension Hydromorphone HCl (Dilaudid) 0.25 mg IVPUSH Q2H PRN PRN Reason: Pain (severe 7-10) Amiodarone HCl/Dextrose (Nexterone In Dextrose 360 Mg/200 Ml) 360 mg in 200 mls @ 33.333 mls/hr IV ASDIRECTED [facility]; Protocol Last Admin: 01/08/18 18:38 Dose: 33.333 mls/hr Promethazine HCl 12.5 mg/ (Sodium Chloride) 50.5 mls @ 100 mls/hr IV Q6H PRN PRN Reason: Nausea/Vomiting Sodium Chloride (Normal Saline) 1,000 mls @ 30 mls/hr IV ASDIRECTED [facility] Diltiazem HCl 125 mg/ Sodium (Chloride) 125 mls @ 5 mls/hr IV TITRATE MARYCARMEN Last Infusion: 01/09/18 06:08 Dose: 0 mg/hr, 0 mls/hr Lorazepam (Ativan) 2 mg IVPUSH Q4H PRN PRN Reason: Seizures Magnesium Sulfate (Pharmacy To Dose - Magnesium Replacement) 1 dose .XX ASDIRECTED [facility] Metoprolol Tartrate (Lopressor) 5 mg IVPUSH Q4H PRN PRN Reason: Tachycardia Last Admin: 01/08/18 22:17 Dose: 5 mg Metoprolol Tartrate (Lopressor) 50 mg PO BID [facility] Ondansetron HCl (Zofran) 4 mg IV Q6H PRN PRN Reason: Nausea/Vomiting Polyethylene Glycol (Miralax) 17 gm PO DAILY PRN PRN Reason: Constipation Potassium Chloride (Pharmacy To Dose - Potassium Replacement) 1 dose .XX ASDIRECTED [facility] Rivaroxaban (Xarelto) 20 mg PO DAILY@2100 [facility] Rosuvastatin Calcium (Crestor) 10 mg PO DAILY [facility] Senna/Docusate Sodium (Senna Plus) 1 tab PO BID PRN PRN Reason: Constipation Sodium Chloride (Saline Flush) 10 ml FLUSH ASDIRECTED PRN PRN Reason: Keep Vein Open Last Admin: 01/08/18 16:37 Dose: 10 ml Temazepam (Restoril) 15 mg PO BEDTIME PRN PRN Reason: Sleep Vit A/Vit C/Vit E/Selen/Cu/Zn/Lutei (Icaps Mv) 1 tab PO DAILY [facility] Discontinued Medications Aspirin (Aspirin) 324 mg PO ONETIME ONE Stop: 01/08/18 16:28 Last Admin: 01/08/18 16:35 Dose: 324 mg Digoxin (Lanoxin) 250 mcg IVPUSH Q6H MARYCARMEN Stop: 01/09/18 04:01 Last Admin: 01/09/18 04:18 Dose: 250 mcg Diltiazem HCl (Diltiazem) 10 mg IVPUSH ONETIME ONE Stop: 01/08/18 16:36 Last Admin: 01/08/18 16:45 Dose: 10 mg Diltiazem HCl (Diltiazem) 10 mg IVPUSH ONETIME ONE Stop: 01/08/18 17:17 Last Admin: 01/08/18 17:20 Dose: 10 mg Sodium Chloride (Normal Saline) 1,000 mls @ 125 mls/hr IV ASDIRECTED MARYCARMEN Last Infusion: 01/08/18 20:50 Dose: 30 mls/hr Diltiazem HCl 125 mg/ Sodium (Chloride) 125 mls @ 10 mls/hr IV TITRATE MARYCARMEN; Protocol Last Titration: 01/08/18 18:10 Dose: 0 mg/hr, 0 mls/hr Amiodarone HCl 150 mg/ (Dextrose/Water) 103 mls @ 600 mls/hr IV .BOLUS ONE Stop: 01/08/18 18:06 Last Admin: 01/08/18 18:11 Dose: 600 mls/hr Diltiazem HCl 100 mg/ Sodium (Chloride) 100 mls @ 5 mls/hr IV TITRATE MARYCARMEN Metoprolol Tartrate 5 mg/ (Sodium Chloride) 55 mls @ 100 mls/hr IV ONETIME STA Stop: 01/08/18 22:38 Last Admin: 01/08/18 22:22 Dose: Not Given Metoprolol Tartrate (Lopressor) 25 mg PO ONETIME ONE Stop: 01/08/18 22:59 Last Admin: 01/08/18 23:27 Dose: Not Given Metoprolol Tartrate (Lopressor) 50 mg PO ONETIME ONE Stop: 01/08/18 23:25 Last Admin: 01/08/18 23:51 Dose: 50 mg Morphine Sulfate (Morphine) 1 mg IVPUSH ONETIME STA Stop: 01/08/18 22:17 Last Admin: 01/08/18 22:28 Dose: 1 mg Non-Formulary Medication (Metoprolol Tartrate [Metoprolol Tartrate]) 100 mg PO DAILY [facility] Potassium Chloride (Klor-Con M20) 40 meq PO Q4H MARYCARMEN Stop: 01/09/18 00:01 Last Admin: 01/09/18 03:23 Dose: Not Given Potassium Chloride (Klor-Con M20) 60 meq PO ONETIME ONE Stop: 01/08/18 20:08 Last Admin: 01/08/18 20:41 Dose: 60 meq Rivaroxaban (Xarelto) 20 mg PO DAILY [facility] Rivaroxaban (Xarelto) 20 mg PO ONETIME ONE Stop: 01/08/18 21:36 Last Admin: 01/08/18 22:21 Dose: 20 mg - Exam General: Alert, Oriented, Cooperative, No Acute Distress HEENT: Pupils Equal, Pupils Reactive, EOMI, Mucous Membr. Moist/[place] Lungs: Clear to Auscultation, Normal Respiratory Effort Cardiovascular: Regular Rate, Regular Rhythm GI/Abdominal Exam: Normal Bowel Sounds, Soft, Non-Tender, No Organomegaly, No Distention, No Abnormal Bruit, No Mass (Male) Exam: Deferred Back Exam: Normal Inspection, Full Range of Motion Extremities: Normal Inspection, Normal Range of Motion, Non-Tender, No Pedal Edema, Normal Capillary Refill Peripheral Pulses: 3+: Dorsalis Pedis (L), Dorsalis Pedis (R) Skin: Warm, Dry, Intact Wound/Incisions: Healing Well Neurological: No New Focal Deficit Psy/Mental Status: Alert, Normal Affect, Normal Mood - Problem List Review Problem List Initiated/Reviewed/Updated: Yes - My Orders Last 24 Hours: My Active Orders 01/08/18 19:35 LORazepam [Ativan] 2 mg IVPUSH Q4H PRN Metoprolol Tartrate [Lopressor] 5 mg IVPUSH Q4H PRN hydrALAZINE [Apresoline] 20 mg IVPUSH Q4H PRN 01/08/18 19:38 Oxygen Therapy [RC] PRN VTE/DVT Education [RC] QSHIFT Vital Signs [RC] Q4HR Resuscitation Status Routine 01/08/18 19:39 Echo Comp wo Cont [US] Routine 01/08/18 19:45 Magnesium Rep Pharmacy to Dose [Pharmacy to Dose - Magnesium Replacement] 1 dose .XX ASDIRECTED Potassium Rep Pharmacy to Dose [Pharmacy to Dose - Potassium Replacement] 1 dose .XX ASDIRECTED 01/08/18 20:06 Height and Weight [RC] 0400 Up ad Nancy [RC] ASDIRECTED Acetaminophen [Tylenol] 650 mg PO Q4H PRN Acetaminophen/HYDROcodone [[place] 325-5 MG] 1 tab PO Q4H PRN Albuterol/Ipratropium [DuoNeb 3.0-0.5 MG/3 ML] 3 ml NEB Q4H PRN Bisacodyl [Dulcolax] 5 mg PO DAILY PRN Docusate Sodium [Colace] 100 mg PO BID PRN Docusate Sodium/Sennosides [Senna Plus] 1 tab PO BID PRN HYDROmorphone [Dilaudid] 0.25 mg IVPUSH Q2H PRN Ondansetron [Zofran] 4 mg IV Q6H PRN Polyethylene Glycol 3350 [MiraLAX] 17 gm PO DAILY PRN Promethazine [Phenergan] 12.5 mg Sodium Chloride 0.9% [Normal Saline] 50 ml IV Q6H Temazepam [Restoril] 15 mg PO BEDTIME PRN 01/08/18 20:07 Intake and Output [RC] 0400,1600 01/08/18 20:09 RT Aerosol Therapy [RC] PRN Consult to Case Management [CONS] Routine 01/08/18 20:15 Sodium Chloride 0.9% [Normal Saline] 1,000 ml IV ASDIRECTED 01/08/18 20:30 Diltiazem 125 mg Sodium Chloride 0.9% [Normal Saline] 100 ml IV TITRATE 01/08/18 22:00 Accu Check [Blood Glucose Check, Bedside] [RC] Q6HR 01/08/18 22:45 DRUG SCREEN, URINE [URCHEM] Stat 01/08/18 Dinner Heart Healthy Diet [DIET] 01/09/18 06:05 EKG 12 Lead [EK] Routine 01/09/18 09:00 Aspirin 81 mg PO DAILY Fish Oil/[place]uhl-3 Fatty Acids [Fish Oil] 3 gm PO DAILY Metoprolol Tartrate [Lopressor] 50 mg PO BID Multivitamins/Min/FA/Lut/Zeax [ICaps MV] 1 tab PO DAILY Rosuvastatin [Crestor] 10 mg PO DAILY 01/09/18 10:30 TROPONIN I [CHEM] Routine 01/09/18 21:00 Rivaroxaban [Xarelto] 20 mg PO DAILY@2100 01/10/18 05:11 BASIC METABOLIC PANEL,BMP [CHEM] AM MAGNESIUM [CHEM] AM 01/11/18 05:11 BASIC METABOLIC PANEL,BMP [CHEM] AM MAGNESIUM [CHEM] AM 01/12/18 05:11 MAGNESIUM [CHEM] AM - Plan Plan:: Assessment/Plan: Acute: Paroxysmal Atrial Fibrillation, HR controlled - Cardizem CD 120 mg po Daily and Metoprolol Tartrate 50 mg po BID - Start Warfarin protocol for stroke prophylaxis - CM to check insurance in if they are fully covered for NOACs Chest Pain with New onset of LB3 (reviewed old ekg) - Serial Troponin Level: 0.031--> 0.060 --> 0.130; CKMB is 3 (normal)- troponin leak from fast heart rate - Continue ASA/BB and Statin - Lipid Panel: Trig is 235 and HDL 24 (may need to increase his statin dose) ; he is already on omega-3 - AHA diet - 2D echo Wednesday if not outpatient Resolved: S/p Atrial Fibrillation with RVR - Likely 2/2 too much caffeine intake--> advised to cut down intake or drink in moderation - Sudden onset at rest; did some yard work before that - Admits to heavy caffeine intake but not ETOH; drinks coffee a alot - He does not smoke or use illicit drugs - He is on CCB and BB for rate control; he is not on anticoagulation except for ASA - He was started on Cardizem drip but was intolerant to it he is now on Amiodarone drip - Thyroid panel-normal S/p Hypokalemia - K 3.3--> 4.1 - 2/2 inadequate intake - Replete and monitor Chronic: CHARAN on CPAP Hypertension Hyperlipidemia History of kidney stone Chronic back pain Gout Plan: Transfer to [facility] with Tele Routine AM labs DVT/Stroke PPx: Warfarin protocol Encourage to Ambulate to see how his heart rate respond with activity Code Status: 1 Spoke to , she states their insurance plan does not fully cover NOACs. Their co-pay is too expensive. But did not seem to agree with . Offered them warfarin at this point and will have CM help to verify with their insurance in AM.
[2018-01-09] MEDS: Metoprolol Tartrate 50 MG Tab PO SCH ×2 (08:21→20:43)
[2018-01-09] MEDS ORDERED: METOPROLOL TARTRATE 100 MG PO SCH (09:00)
[2018-01-09] MEDS ORDERED: Rosuvastatin 10 MG Tab PO SCH (09:00)
[2018-01-09] MEDS ORDERED: Diltiazem 120 MG Cap.CD PO SCH (09:00)
[2018-01-09] MEDS ORDERED: Multivitamins with Minerals/Folic Acid/Lutein/Zeaxanth Tab PO SCH (09:00)
[2018-01-09] MEDS ORDERED: Fish Oil/Omega-3 Fatty Acids 1 Gm Cap PO SCH (09:00)
[2018-01-09] MEDS ORDERED: Enoxaparin 40 MG/0.4 ML Syringe SUBCUT SCH (09:00)
[2018-01-09] MEDS ORDERED: Aspirin 81 MG Tab.Chew PO SCH (09:00)
[2018-01-09] MEDS ORDERED: Digoxin 500 MCG/2 ML Amp ONE (11:15)
[2018-01-09] MEDS ORDERED: Warfarin 10 MG Tab PO SCH (18:00)
[2018-01-09] MEDS ORDERED: Rivaroxaban 10 MG Tab PO SCH ×2 (21:00)
[2018-01-10 05:30] VITALS: BP 137/71
--- NOTE | 2018-01-10 07:58 | PCM.DCSUM1 ---
Discharge Summary - Hospital Course Brief History: This is a 67 yo white male with past medical hx/o atrial fibrillation not on anticoagulation, hypertension, hyperlipidemia, history of kidney stone, chronic back pain, gout, who presents to the emergency department with complaints of chest pain and heart palpitation after exertion. Patient did some yard work today and while he was resting on his chair, he notices his heart starting to race. And following heart palpitation, he started to have chest pain along with shortness of breath. He is currently on aspirin for stroke prophylaxis and Cardizem/Metoprolol for rate control medications. He follows [facility]ENN[facility] Vasquez for his routine cardiac care. Patient denies any other issues. His initial workup in emergency department shows a CBC remarkable for WBC of 11.45, MCV of 96.5, MCH of 19 2.6, MPV of 9, neutrophil count of 7.51, and monocytes of 1.19. His chemistry is remarkable for potassium of 3.3, anion gap of 15.3, BUN of 21, AST of 43, and ALT of 60. His initial troponin level is 0.031. Thyroid panel is normal. Initial EKG taken at 4:22 in ED shows atrial fibrillation with heart rate of 163 with left bundle bunch block. Patient received initial treatment in the emergency department with Cardizem drip. Unfortunately he was intolerant and was switched toAamiodarone drip and subsequently sent to the unit for further management. He is being admitted for atrial fibrillation with RVR and Chest Pain rule out ACS. He is full code. - Discharge Data Discharge Date: 01/10/18 Discharge Disposition: Home, Self-Care 01 Condition: Good - Discharge Diagnosis/Problem(s) (1) Atrial fibrillation with RVR SNOMED Code(s): 188760163383382 ICD Code: I48.91 - UNSPECIFIED ATRIAL FIBRILLATION Status: Acute (2) Chest pain SNOMED Code(s): 54193560 ICD Code: R07.9 - CHEST PAIN, UNSPECIFIED Status: Acute Qualifiers: Chest pain type: unspecified Qualified Code(s): R07.9 - Chest pain, unspecified (3) Hypokalemia SNOMED Code(s): 97109996 ICD Code: E87.6 - HYPOKALEMIA Status: Acute - Patient Summary/Data Operative Procedure(s) Performed: None Complications: None Consults: Consultations 01/08/18 20:09 Consult to Case Management [CONS] Routine Labs Pending at D/C: None Recommended Follow-up Testing/Procedures: None Planned Operative Procedure(s) after DC: None Hospital Course: Patient was primarily admitted for medical treatment for atrial fibrillation with RVR. He carried a history of paroxysmal atrial fibrillation. He was on both calcium channel padmini and metoprolol but not anticoagulation for stroke prophylaxis. Upon presentation to the emergency department he was found to have irregular heart rate as high as in the 140s. He was initially treated with Cardizem drip but he was intolerant and therefore he was switched to amiodarone a for your was sent to the floor. His basic workup revealed no obvious trigger for his A. fib RVR. His thyroid panel was normal, his proBNP was normal. His troponin was slightly elevated however we felt this was January 22 troponin leak from cardiac stress. When patient got to the unit he wasn't responding to the amiodarone drip. Therefore he was switched to Cardizem and beta padmini was added. Marty was also added to optimize blocking agent. The patient finally improved and this regimen. Once he was off Cardizem drip. His heart rate stayed in the 60s 70s. Patient was stable upon discharge. He was discharged with the same rate control medication home dose. However he was prescribed weed 0 though for stroke prophylaxis. Patient had to be discharged early in the morning to keep his appointment at [facility]. However he was advised to come back he is well- controlled is not covered by his insurance so he can be switched to traditional warfarin protocol and Lovenox education. was further to check his blood pressure and heart rate and she'll log and his follow-up appointment his PCP for further medication adjustment. He was further advise to cut down his caffeine intake as this without was the cause of his irregular fast heart rate. The patient and at bedside expressed understanding and in agreement with the plans as discussed above. All questions were answered. - Patient Instructions Diet: Heart Healthy Diet, Usual Diet as Tolerated Activity: As Tolerated Driving: May Drive Today Showering/Bathing: May Shower Notify Provider of: Fever, Increased Pain, Nausea and/or Vomiting Other/Special Instructions: - Please take all new medications as directed. - Resume home medication regimen as usual. - Cut down Caffeine intake. - Return to hospital after your radiology appointment today. - Check your blood pressure and heart rate at least x3 a day and show log on follow up appointment with your PCP. - Follow up or call your family doctor for any questions or concerns after discharge. - Follow up with your PCP in 1 week. - Come back or seek immediate care should your symptoms persist or get worse - Discharge Plan Prescriptions/Med Rec: Rivaroxaban [Xarelto] 20 mg PO DAILY #30 tablet Home Medications: Home Meds Aspirin [Roseanne Chewable Aspirin] 81 mg PO DAILY 02/18/14 [History] Hydrochlorothiazide 25 mg PO DAILY 02/18/14 [History] Multivitamin/Iron/Folic Acid [Centrum Complete Multivit] 1 each PO DAILY [History] atorvaSTATin [Lipitor] 40 mg PO DAILY 02/18/14 [History] Diltiazem [Cardizem CD] 120 mg PO DAILY 01/08/18 [History] [place]-3/DHA/Epa/Fish Oil [[place]-3 Fish Oil 1,200 MG Sfgl] 3,000 mg PO DAILY [History] Metoprolol Tartrate 100 mg PO DAILY 01/09/18 [History] Rivaroxaban [Xarelto] 20 mg PO DAILY #30 tablet 01/10/18 [Rx] Patient Handouts: Atrial Fibrillation, [id number] Referrals: Amish Melchor MD [Primary Care Provider] - - Discharge Summary/Plan Comment DC Time >30 min.: Yes (45 mins) Discharge Summary/Plan Comment: Discharge to Home - General Info Date of Service: 01/10/18 Admission Dx/Problem (Free Text: Admission Diagnosis/Problem Admission Diagnosis/Problem Atrial fibrillation Subjective Update: Follow up Functional Status: Reports: Pain Controlled, Tolerating Diet, Ambulating, Urinating - Review of Systems General: Denies: Fever, Weakness, Fatigue, Malaise, Chills HEENT: Reports: No Symptoms Pulmonary: Denies: Shortness of Breath, Pleuritic Chest Pain, Cough Cardiovascular: Denies: Chest Pain, Palpitations, Dyspnea on Exertion, Lightheadedness Gastrointestinal: Denies: Abdominal Pain, Nausea, Vomiting Genitourinary: Reports: No Symptoms Musculoskeletal: Reports: No Symptoms Skin: Denies: Cyanosis, Jaundice, Mottled, Pallor, Diaphoresis Neurological: Denies: Confusion, Dizziness, Headache, Syncope, Difficulty Walking, Weakness, Gait Disturbance Psychiatric: Denies: Depression, Anxiety, Agitation, Hallucinations Systems Review Comment: No overnight or acute issues. He slept pretty good and doing very well. He has no complaints this morning. His heart rate remains stable. - Patient Data Vitals - Most Recent: Last Vital Signs Temp 36.7 C 01/10/18 04:00 Pulse 72 01/10/18 04:00 Resp 20 01/10/18 04:00 BP 137/71 01/10/18 04:00 Pulse Ox 97 01/10/18 04:00 Weight - Most Recent: 109.089 kg I&O - Last 24 hours: Intake & Output 01/09/18 01/10/18 01/10/18 22:59 06:59 14:59 Intake Total 1080 700 Output Total 200 500 Balance 880 200 Lab Results - Last 24 hrs: Laboratory Results - last 24 hr 01/09/18 01/09/18 01/10/18 Range/Units 04:40 10:20 05:35 PT 12.6 H (9.5-12.1) SECONDS INR 1.16 Sodium 142 (136-145) mEq/L Potassium 3.8 (3.5-5.1) mEq/L Chloride 108 H (98-107) mEq/L Carbon Dioxide 23 (21-32) mEq/L Anion Gap 14.8 (5-15) BUN 15 (7-18) mg/dL Creatinine 1.0 (0.7-1.3) mg/dL Est Cr Clr Drug Dosing 67.45 mL/min Estimated GFR (MDRD) > 60 (>60) mL/min BUN/Creatinine Ratio 15.0 (14-18) Glucose 98 (80-115) mg/dL Calcium 9.1 (8.5-10.1) mg/dL Magnesium 2.2 (1.8-2.4) mg/dl Troponin I 0.102 H* (0.00-0.056) ng/mL Med Orders - Current: Current Medications Acetaminophen (Tylenol) 650 mg PO Q4H PRN PRN Reason: Pain (Mild 1-3)/fever Hydrocodone Bitart/Acetaminophen ([place] 325-5 Mg) 1 tab PO Q4H PRN PRN Reason: Pain (moderate 4-6) Albuterol/Ipratropium (Duoneb 3.0-0.5 Mg/3 Ml) 3 ml NEB Q4H PRN PRN Reason: Shortness Of Breath/wheezing Aspirin (Aspirin) 81 mg PO DAILY [facility] Last Admin: 01/09/18 08:21 Dose: 81 mg Bisacodyl (Dulcolax) 5 mg PO DAILY PRN PRN Reason: Constipation Diltiazem HCl (Cardizem Cd) 120 mg PO DAILY [facility] Last Admin: 01/09/18 08:22 Dose: 120 mg Docusate Sodium (Colace) 100 mg PO BID PRN PRN Reason: Constipation Enoxaparin Sodium (Lovenox) 40 mg SUBCUT DAILY [facility] Last Admin: 01/09/18 08:20 Dose: 40 mg Fish Oil (Fish Oil) 3 gm PO DAILY [facility] Last Admin: 01/09/18 08:20 Dose: 3 gm Hydralazine HCl (Apresoline) 20 mg IVPUSH Q4H PRN PRN Reason: Hypertension Hydromorphone HCl (Dilaudid) 0.25 mg IVPUSH Q2H PRN PRN Reason: Pain (severe 7-10) Promethazine HCl 12.5 mg/ (Sodium Chloride) 50.5 mls @ 100 mls/hr IV Q6H PRN PRN Reason: Nausea/Vomiting Lorazepam (Ativan) 2 mg IVPUSH Q4H PRN PRN Reason: Seizures Magnesium Sulfate (Pharmacy To Dose - Magnesium Replacement) 1 dose .XX ASDIRECTED [facility] Metoprolol Tartrate (Lopressor) 5 mg IVPUSH Q4H PRN PRN Reason: Tachycardia Last Admin: 01/08/18 22:17 Dose: 5 mg Metoprolol Tartrate (Lopressor) 50 mg PO BID [facility] Last Admin: 01/09/18 20:43 Dose: 50 mg Ondansetron HCl (Zofran) 4 mg IV Q6H PRN PRN Reason: Nausea/Vomiting Polyethylene Glycol (Miralax) 17 gm PO DAILY PRN PRN Reason: Constipation Potassium Chloride (Pharmacy To Dose - Potassium Replacement) 1 dose .XX ASDIRECTED [facility] Rosuvastatin Calcium (Crestor) 10 mg PO DAILY [facility] Last Admin: 01/09/18 08:20 Dose: 10 mg Senna/Docusate Sodium (Senna Plus) 1 tab PO BID PRN PRN Reason: Constipation Sodium Chloride (Saline Flush) 10 ml FLUSH ASDIRECTED PRN PRN Reason: Keep Vein Open Last Admin: 01/08/18 16:37 Dose: 10 ml Temazepam (Restoril) 15 mg PO BEDTIME PRN PRN Reason: Sleep Vit A/Vit C/Vit E/Selen/Cu/Zn/Lutei (Icaps Mv) 1 tab PO DAILY [facility] Last Admin: 01/09/18 08:20 Dose: 1 tab Warfarin Sodium (Coumadin) 10 mg PO DAILY@1800 MARYCARMEN Stop: 01/10/18 18:01 Last Admin: 01/09/18 19:42 Dose: 10 mg Discontinued Medications Aspirin (Aspirin) 324 mg PO ONETIME ONE Stop: 01/08/18 16:28 Last Admin: 01/08/18 16:35 Dose: 324 mg Digoxin (Lanoxin) 250 mcg IVPUSH Q6H MARYCARMEN Stop: 01/09/18 04:01 Last Admin: 01/09/18 04:18 Dose: 250 mcg Digoxin (Lanoxin) Confirm Administered Dose 500 mcg .ROUTE .STK-MED ONE Stop: 01/09/18 11:16 Last Admin: 01/09/18 11:20 Dose: Not Given Diltiazem HCl (Diltiazem) 10 mg IVPUSH ONETIME ONE Stop: 01/08/18 16:36 Last Admin: 01/08/18 16:45 Dose: 10 mg Diltiazem HCl (Diltiazem) 10 mg IVPUSH ONETIME ONE Stop: 01/08/18 17:17 Last Admin: 01/08/18 17:20 Dose: 10 mg Sodium Chloride (Normal Saline) 1,000 mls @ 125 mls/hr IV ASDIRECTED [facility] Last Infusion: 01/08/18 20:50 Dose: 30 mls/hr Diltiazem HCl 125 mg/ Sodium (Chloride) 125 mls @ 10 mls/hr IV TITRATE MARYCARMEN; Protocol Last Titration: 01/08/18 18:10 Dose: 0 mg/hr, 0 mls/hr Amiodarone HCl 150 mg/ (Dextrose/Water) 103 mls @ 600 mls/hr IV .BOLUS ONE Stop: 01/08/18 18:06 Last Admin: 01/08/18 18:11 Dose: 600 mls/hr Amiodarone HCl/Dextrose (Nexterone In Dextrose 360 Mg/200 Ml) 360 mg in 200 mls @ 33.333 mls/hr IV ASDIRECTED [facility]; Protocol Last Admin: 01/08/18 18:38 Dose: 33.333 mls/hr Diltiazem HCl 100 mg/ Sodium (Chloride) 100 mls @ 5 mls/hr IV TITRATE MARYCARMEN Sodium Chloride (Normal Saline) 1,000 mls @ 30 mls/hr IV ASDIRECTED [facility] Diltiazem HCl 125 mg/ Sodium (Chloride) 125 mls @ 5 mls/hr IV TITRATE MARYCARMEN Last Infusion: 01/09/18 06:08 Dose: 0 mg/hr, 0 mls/hr Metoprolol Tartrate 5 mg/ (Sodium Chloride) 55 mls @ 100 mls/hr IV ONETIME STA Stop: 01/08/18 22:38 Last Admin: 01/08/18 22:22 Dose: Not Given Metoprolol Tartrate (Lopressor) 25 mg PO ONETIME ONE Stop: 01/08/18 22:59 Last Admin: 01/08/18 23:27 Dose: Not Given Metoprolol Tartrate (Lopressor) 50 mg PO ONETIME ONE Stop: 01/08/18 23:25 Last Admin: 01/08/18 23:51 Dose: 50 mg Morphine Sulfate (Morphine) 1 mg IVPUSH ONETIME STA Stop: 01/08/18 22:17 Last Admin: 01/08/18 22:28 Dose: 1 mg Non-Formulary Medication (Metoprolol Tartrate [Metoprolol Tartrate]) 100 mg PO DAILY [facility] Potassium Chloride (Klor-Con M20) 40 meq PO Q4H [facility] Stop: 01/09/18 00:01 Last Admin: 01/09/18 03:23 Dose: Not Given Potassium Chloride (Klor-Con M20) 60 meq PO ONETIME ONE Stop: 01/08/18 20:08 Last Admin: 01/08/18 20:41 Dose: 60 meq Rivaroxaban (Xarelto) 20 mg PO DAILY [facility] Rivaroxaban (Xarelto) 20 mg PO ONETIME ONE Stop: 01/08/18 21:36 Last Admin: 01/08/18 22:21 Dose: 20 mg Rivaroxaban (Xarelto) 20 mg PO DAILY@2100 [facility] - Exam General: Reports: Alert, Oriented, Cooperative, No Acute Distress HEENT: Reports: Pupils Equal, Pupils Reactive, EOMI, Mucous Membr. Moist/[place] Neck: Reports: Supple, Trachea Midline, No JVD, No Thyromegaly Lungs: Reports: Clear to Auscultation, Normal Respiratory Effort Cardiovascular: Reports: Regular Rate, Regular Rhythm GI/Abdominal Exam: Normal Bowel Sounds, Soft, Non-Tender, No Organomegaly, No Distention, No Abnormal Bruit (Male) Exam: Deferred Rectal (Males) Exam: Deferred Back Exam: Reports: Normal Inspection, Decreased Range of Motion Extremities: Normal Inspection, Normal Range of Motion, Non-Tender, No Pedal Edema, Normal Capillary Refill Skin: Reports: Warm, Dry, Intact Neurological: Reports: No New Focal Deficit Psy/Mental Status: Reports: Alert, Normal Affect, Normal Mood
--- NOTE | 2018-01-10 08:30 | CR ---
Chest: Frontal view of the chest was obtained. Comparison: Prior chest x-ray of 02/19/14. Heart size is normal. Tortuous thoracic aorta is seen. Small nodule is identified within the left mid to lower lung which is stable from prior exam and most likely represents a granuloma. Lungs otherwise are clear. Apical pleural thickening is noted within the right lung apex believed to be chronic. No acute parenchymal densities are seen. Impression: 1. Incidental findings. Nothing acute is identified on frontal chest x-ray. Diagnostic code #2
== END 2018-01-10 07:58 | disposition home or self-care (01) | DRG 310 ==
LOC: JD.ED 16:14 → JD.ICU 19:30 → JD.MS 01-10 07:42
PROVIDERS: ADMIT Internal Medicine; ATTEND Internal Medicine
DX: I48.91 Unspecified atrial fibrillation (principal); R07.9 Chest pain, unspecified; R06.02 Shortness of breath; R00.2 Palpitations; E78.00 Pure hypercholesterolemia, unspecified; I48.0 Paroxysmal atrial fibrillation; I10 Essential (primary) hypertension; E78.5 Hyperlipidemia, unspecified; E87.6 Hypokalemia; G47.33 Obstructive sleep apnea (adult) (pediatric); I44.7 Left bundle-branch block, unspecified; G89.29 Other chronic pain; M54.9 Dorsalgia, unspecified; Z87.442 Personal history of urinary calculi; Z79.82 Long term (current) use of aspirin; Z79.899 Other long term (current) drug therapy; Z87.891 Personal history of nicotine dependence
CPT/HCPCS: 36415; 71045; 71045-26; 80048; 80053; 80061; 80306; 82553; 83735; 84439; 84443; 84484; 85025; 85610; 93005; 93010; 96361; 96365; 96367; 96376; 99285; 99285-25; A9270-GY; J0282; J1160; J1650; J2270; J3490; J7030; J7040; J7050; J7060

== ENCOUNTER 2018-02-16 06:58 | Inpatient (IN) | payer MEDICARE, BC ==
--- NOTE | 2018-02-16 07:18 | EDM.PDOC ---
ED HPI GENERAL MEDICAL PROBLEM - General Chief Complaint: Gastrointestinal Problem Stated Complaint: BLOOD IN STOOL Time Seen by Provider: 02/16/18 07:17 Source of Information: Reports: Patient History Limitations: Reports: No Limitations - History of Present Illness INITIAL COMMENTS - FREE TEXT/NARRATIVE: 67-year-old male presents to the ED with lower GI bleeding. states he was placed on Xarelto for chronic atrial fibrillation and then started to have problems with GI bleeding. Was taken off the Xarelto for 6 days and then at that time he had upper GI endoscopy and a colonoscopy. They identified angiomata this bowel lesions that were very friable they touch they bled. It was felt that he would be better served by not being on Xarelto and it was discontinued. These had a good week with no bleeding per rectum. However about 5 :00 last night started to have bright red blood in bowel movements and had 3 problems last night. He's had about 4 further problems overnight. The last one was pure blood. Started to feel lightheaded dizzy and weak. Patient is currently on only on aspirin daily for low atrial fibrillation. He reports he underwent cystoscopy yesterday with urologist in [place] with no problems identified in the genitourinary tract to be a source of bleeding. Onset: Sudden Onset Date: 02/15/18 Onset Time: 17:00 Duration: Hour(s): Location: Reports: Other (Bleeding per rectum) Quality: Reports: Other Severity: Moderate (Painless) Improves with: Reports: None Worsens with: Reports: None Context: Denies: Activity, Exercise, Lifting, Sick Contact, Trauma, Other Associated Symptoms: Reports: Weakness. Denies: No Other Symptoms, Confusion, Chest Pain, Cough, cough w sputum, Diaphoresis, Headaches, Loss of Appetite, Malaise, Nausea/Vomiting, Rash, Seizure, Shortness of Breath, Syncope Treatments [place]WYER: Reports: Other (see below) (None.) - Related Data Allergies Allergy/AdvReac Type Severity Reaction Status Date / Time No Known Allergies Allergy Verified 02/16/18 07:12 Home Meds: Home Meds Aspirin [Roseanne Chewable Aspirin] 81 mg PO DAILY 02/18/14 [History] Hydrochlorothiazide 25 mg PO DAILY 02/18/14 [History] Multivitamin/Iron/Folic Acid [Centrum Complete Multivit] 1 each PO DAILY [History] atorvaSTATin [Lipitor] 40 mg PO DAILY 02/18/14 [History] Diltiazem [Cardizem CD] 120 mg PO DAILY 01/08/18 [History] Grove-3/DHA/Epa/Fish Oil [Grove-3 Fish Oil 1,200 MG Sfgl] 3,000 mg PO DAILY [History] Metoprolol Tartrate 100 mg PO DAILY 01/09/18 [History] Past Medical History Other HEENT History: Eye glasses Cardiovascular History: Reports: Afib, High Cholesterol, Hypertension, Other ( See Below) Other Cardiovascular History: cardioverted Respiratory History: Reports: Sleep Apnea Genitourinary History: Reports: Renal Calculus Musculoskeletal History: Reports: Back Pain, Chronic, Gout Other Dermatologic History: conerned for cancerous moles- doctor says they are okay - Infectious Disease History Infectious Disease History: Reports: Measles - Past Surgical History GI Surgical History: Reports: Colonoscopy (Last crosses done by Dr. Alba 7 days ago. Apparently identified one sessile polyp and angiodysplastic vessels both in the duodenum and in the colon.), ERCP Social & Family History - Family History Family Medical History: Noncontributory - Tobacco Use Smoking Status *Q: Former Smoker Used Tobacco, but Quit: Yes Month/Year Tobacco Last Used: quit 19 years ago - Caffeine Use Caffeine Use: Reports: Coffee Other Caffeine Use: 10 Cups/Day Caffeine Use Comment: ` - Recreational Drug Use Recreational Drug Use: No - Living Situation & Occupation Living situation: Reports: Occupation: Retired ED ROS GENERAL - Review of Systems Review Of Systems: See Below Constitutional: Reports: Weakness, Fatigue. Denies: Fever, Chills, Malaise, Night Sweats, Diaphoresis, Decreased Appetite, Weight Loss HEENT: Reports: No Symptoms Respiratory: Reports: No Symptoms Cardiovascular: Reports: No Symptoms Endocrine: Reports: Fatigue GI/Abdominal: Reports: Bloody Stool. Denies: Abdominal Pain, Constipation : Reports: No Symptoms Musculoskeletal: Reports: No Symptoms Skin: Reports: Pallor Neurological: Reports: No Symptoms Psychiatric: Reports: No Symptoms Hematologic/Lymphatic: Reports: No Symptoms Immunologic: Reports: No Symptoms ED EXAM, GI/ABD - Physical Exam Exam: See Below Exam Limited By: No Limitations General Appearance: Alert, WD/WN, Anxious, Moderate Distress Eyes: Bilateral: Pale Conjunctiva (Mild. Clinically he still above 9 hemoglobin) Throat/Mouth: Normal Inspection, Normal Lips, Normal Teeth, Normal Oropharynx Head: Atraumatic, Normocephalic Neck: Normal Inspection, Supple, Non-Tender, Full Range of Motion Respiratory/Chest: No Respiratory Distress, Lungs Clear, Normal Breath Sounds, No Accessory Muscle Use Cardiovascular: Normal Peripheral Pulses, Regular Rate, Rhythm, No Edema, No Gallop, No Murmur GI/Abdominal Exam: Normal Bowel Sounds, Soft, Non-Tender, No Organomegaly, No Abnormal Bruit, No Mass, Pelvis Stable Back Exam: Normal Inspection, Full Range of Motion. No: CVA Tenderness (L), CVA Tenderness (R) Extremities: Normal Inspection, Normal Range of Motion, Non-Tender, No Pedal Edema Neurological: Alert, CN II-XII Intact, Normal Cognition, Normal Gait, Normal Reflexes Psychiatric: Normal Affect, Normal Mood Skin Exam: Warm, Intact, Pallor ED ABDOMINAL/GI PROCEDURES - Additional/Other Procedure(s) Procedure(s) (Free Text): Rigid sigmoidoscopy carried out with lidocaine jelly applied to the anus. All I could see was clotted blood and fresh bright red blood up to 16 cm. The sigmoidoscope occluded with blood and therefore prevented me from seeing further. No hemorrhoids were identified when I reinserted the scope after emptying the scope of blood and clot. Bleeding. To be coming from above the 20 cm pedro luis. Therefore he will require further colonoscopy. EKG INTERPRETATION EKG Date: 02/16/18 Time: 08:05 Rhythm: NSR Rate (Beats/Min): 83 [place]: LAD-Left [place] Deviation (-33.) P-Wave: Present QRS: Other (Left bundle branch block present which skews the ECG. There are Q waves in leads 3 and aVF. Cannot rule out an old inferior wall myocardial infarction.) ST-T: Other (TV wave inversion one in aVL.) QT: Prolonged (QT is mildly prolonged.) EKG Interpretation Comments: Abnormal ECG. Course - Vital Signs Text/Narrative:: 67-year-old male presents the ED with recurrent bleeding per rectum. Most the bleeding per rectum is been bright red without clots. He states it started again about 5:00 yesterday afternoon when he went to 3 times last evening. He states overnight he went twice more and twice more this morning with the last one being pure blood. Starting to feel ill with weakness diaphoresis. Elected to come to the hospital. Patient is been having problems with lower GI bleeding after starting on Xarelto for atrial fibrillation. This medication was discontinued over 2 weeks ago. He is subsequently undergone a colonoscopy and upper GI endoscopy and found to have angiodysplasia with several friable areas in his stomach and GI tract that apparently bled on contact. No other serious pathology was identified to his knowledge no biopsies were performed. Currently is only on aspirin therapy which she's been on in the past for atrial fibrillation. Plan orthostatic BPs to be done. IV will be normal saline at 250 mils per hour. Routine labs including type and screen . PT INR. Patient will likely need to be admitted to the hospital for another colonoscopy to be done. Last Recorded V/S: Last Vital Signs Temp 36.3 C 02/16/18 07:07 Pulse 89 02/16/18 07:07 Resp 18 02/16/18 07:07 BP 119/85 02/16/18 07:07 Pulse Ox 98 02/16/18 07:07 Orthostatic Blood Pressure [ 83/71 Standing] Orthostatic Blood Pressure [ 102/75 Sitting] Orthostatic Blood Pressure [ 108/65 Supine] - Orders/Labs/Meds Orders: Active Orders 24 hr Category Date Time Status EKG Documentation Completion [RC] STAT Care 02/16/18 07:28 Active Orthostatic Vital Signs [RC] ASDIRECTED Care 02/16/18 07:18 Active TYPE AND SCREEN [BBK] Stat Lab 02/16/18 07:30 Received Sodium Chloride 0.9% [Normal Saline] 1,000 ml Med 02/16/18 08:00 Active IV ASDIRECTED Medication Orders Sodium Chloride (Normal Saline) 1,000 mls @ 500 mls/hr IV ASDIRECTED MARYCARMEN Labs: Laboratory Tests 02/16/18 02/16/18 02/16/18 Range/Units 07:30 07:30 07:30 WBC 6.59 (4.23-9.07) K/mm3 RBC 3.18 L (4.63-6.08) M/mm3 Hgb 10.3 L (13.7-17.5) gm/L Hct 31.6 L (40.1-51.0) % MCV 99.4 H (79.0-92.2) fl MCH 32.4 H (25.7-32.2) pg MCHC 32.6 (32.2-35.5) g/dl RDW Std Deviation 47.2 H (35.1-43.9) fL Plt Count 289 (163-337) K/mm3 MPV 8.4 L (9.4-12.3) fl Neutrophils % (Manual) 72 H (40-60) % Band Neutrophils % 1 (0-10) % Lymphocytes % (Manual) 25 (20-40) % Atypical Lymphs % 0 % Monocytes % (Manual) 2 (2-10) % Eosinophils % (Manual) 0 L (0.8-7.0) % Basophils % (Manual) 0 L (0.2-1.2) Platelet Estimate Adequate RBC Morph Comment Normal PT 10.9 (9.5-12.1) SECONDS INR 1.00 Sodium 145 (136-145) mEq/L Potassium 3.5 (3.5-5.1) mEq/L Chloride 109 H (98-107) mEq/L Carbon Dioxide 29 (21-32) mEq/L Anion Gap 10.5 (5-15) BUN 20 H (7-18) mg/dL Creatinine 1.1 (0.7-1.3) mg/dL Est Cr Clr Drug Dosing 63.38 mL/min Estimated GFR (MDRD) > 60 (>60) mL/min BUN/Creatinine Ratio 18.2 H (14-18) Glucose 155 H (80-115) mg/dL Calcium 8.7 (8.5-10.1) mg/dL Magnesium (1.8-2.4) mg/dl Total Bilirubin 0.5 (0.2-1.0) mg/dL AST 26 (15-37) U/L ALT 42 (16-63) U/L Alkaline Phosphatase 43 L (46-116) U/L Total Protein 6.2 L (6.4-8.2) g/dl Albumin 3.2 L (3.4-5.0) g/dl Globulin 3.0 gm/dL Albumin/Globulin Ratio 1.1 (1-2) //18 Range/Units 07:30 WBC (4.23-9.07) K/mm3 RBC (4.63-6.08) M/mm3 Hgb (13.7-17.5) gm/L Hct (40.1-51.0) % MCV (79.0-92.2) fl MCH (25.7-32.2) pg MCHC (32.2-35.5) g/dl RDW Std Deviation (35.1-43.9) fL Plt Count (163-337) K/mm3 MPV (9.4-12.3) fl Neutrophils % (Manual) (40-60) % Band Neutrophils % (0-10) % Lymphocytes % (Manual) (20-40) % Atypical Lymphs % % Monocytes % (Manual) (2-10) % Eosinophils % (Manual) (0.8-7.0) % Basophils % (Manual) (0.2-1.2) Platelet Estimate RBC Morph Comment PT (9.5-12.1) SECONDS INR Sodium (136-145) mEq/L Potassium (3.5-5.1) mEq/L Chloride (98-107) mEq/L Carbon Dioxide (21-32) mEq/L Anion Gap (5-15) BUN (7-18) mg/dL Creatinine (0.7-1.3) mg/dL Est Cr Clr Drug Dosing mL/min Estimated GFR (MDRD) (>60) mL/min BUN/Creatinine Ratio (14-18) Glucose (80-115) mg/dL Calcium (8.5-10.1) mg/dL Magnesium 1.8 (1.8-2.4) mg/dl Total Bilirubin (0.2-1.0) mg/dL AST (15-37) U/L ALT (16-63) U/L Alkaline Phosphatase (46-116) U/L Total Protein (6.4-8.2) g/dl Albumin (3.4-5.0) g/dl Globulin gm/dL Albumin/Globulin Ratio (1-2) Meds: Medications Generic Name Dose Route Start Last Admin Trade Name Freq PRN Reason Stop Dose Admin Sodium Chloride 1,000 mls @ 500 mls/hr 02/16/18 08:00 Normal Saline IV ASDIRECTED MARYCARMEN Discontinued Medications Generic Name Dose Route Start Last Admin Trade Name Freq PRN Reason Stop Dose Admin Sodium Chloride 1,000 mls @ 250 mls/hr 02/16/18 07:30 02/16/18 07:41 Normal Saline IV 250 mls/hr ASDIRECTED MARYCARMEN Administration Lidocaine HCl 10 ml 02/16/18 08:18 02/16/18 08:30 Xylocaine 2% Jelly MUCMEM 02/16/18 08:19 10 ml ONETIME ONE Administration - Radiology Interpretation Free Text/Narrative:: 67-year-old male presents to the ED after experiencing recurrent bouts of lower GI bleeding since 5:00 yesterday afternoon. Sudden onset of pressure in the rectal vault with bright red blood evident mixed with stool initially. He had 3 stools last night and 4 thus far since midnight. The last one was. Blood. He is on aspirin only. xarelto was discontinued about 2 weeks ago. He is orthostatic. He is mildly pallid on examination. He is in sinus rhythm at 83/m at this time. Plan routine labs to be done. IV will be normal saline at open. Plan we'll discuss with him about a rigid sigmoidoscopy to see if we can identify an obvious source of bleeding. - Re-Assessments/Exams Free Text/Narrative Re-Assessment/Exam: 02/16/18 08:59Labs reveal a normal white count at 6.59 with 72% neutrophils 1 band cell reported. Hemoglobin is 10.3 with hematocrit of 31.6. MCV is elevated at 99.4 platelet count is normal 289,000. PT is 10.9 with an INR of 1.00. Sodium is 145 potassium low-normal at 3.5. Chloride 109 with a bicarbonate 29. Anion gap is normal at 10.5. BUN is elevated at 20 creatinine is 1.1. EGFR is greater than 60. Glucose is 155. Calcium 8.7. Magnesium 1.8. Bilirubin 0.5. AST is 26 with an ALT of 42. Of prosthesis 43. Albumin fraction slightly low at 3.2. Patient underwent rigid sigmoidoscopy up to 16 cm. My scope became occluded with blood and blood clot. There is mixed melena stool as high as the scope would go. I reinserted the scope into the anus and no obvious hemorrhoids were identified. Bleeding appears to be coming from the upper GI tract. He will require admission to hospital. I will see who is available to provide colonoscopy 02/16/18 09:11 case discussed with --application penetration tester hospitalist. He is stable but his blood pressure is low normal. Hemoglobin is 10.3. He is I think actively bleeding. He will therefore be taken to the intensive care unit for management. Was unable to contact either Dr. Coon or Dr. Meyer. Is unable to contact his primary care physician Dr. Murray. Departure - Departure Time of Disposition: 09:12 Disposition: Admitted As Inpatient 64 Condition: Fair Clinical Impression: Acute lower gastrointestinal bleeding - Discharge Information Referrals: Amish Melchor MD [Primary Care Provider] - Forms: ED Department Discharge - My Orders Last 24 Hours: My Active Orders 02/16/18 07:18 Orthostatic Vital Signs [RC] ASDIRECTED 02/16/18 07:28 EKG Documentation Completion [RC] STAT 02/16/18 07:30 TYPE AND SCREEN [BBK] Stat 02/16/18 08:00 Sodium Chloride 0.9% [Normal Saline] 1,000 ml IV ASDIRECTED - Assessment/Plan Last 24 Hours: My Active Orders 02/16/18 07:18 Orthostatic Vital Signs [RC] ASDIRECTED 02/16/18 07:28 EKG Documentation Completion [RC] STAT 02/16/18 07:30 TYPE AND SCREEN [BBK] Stat 02/16/18 08:00 Sodium Chloride 0.9% [Normal Saline] 1,000 ml IV ASDIRECTED
[2018-02-16] MEDS ORDERED: Sodium Chloride 0.9% 1,000 ML IV SCH ×3 (07:30→09:45)
[2018-02-16] MEDS ORDERED: Lidocaine 2% Jelly 10 ML Urojet MUCMEM ONE (08:18)
--- NOTE | 2018-02-16 10:52 | PCM.HP ---
H&P History of Present Illness - General Date of Service: 02/16/18 Admit Problem/Dx: Admission Diagnosis/Problem Admission Diagnosis/Problem Gastrointestinal hemorrhage Source of Information: Patient, Family, Old Records, Provider, RN Notes Reviewed History Limitations: Reports: No Limitations - History of Present Illness Initial Comments - Free Text/Narative: This is a 67 yo white male with past medical hx/o PAF, HTN, HLD, CHARAN, Back Pain , and Gout who comes in for evaluation of rectal bleed. Patient carries a hx/o PAF on xarelto for stroke prophylaxis. However he started to develop GI bleed and Hematuria so he was taken off for at least 6 days and underwent upper and lower endoscopy. The procedure was performed by his PCP, Dr. Murray at the clinic. Per secondary sources, they found lesions suspicious for angiodysplasia and multiple colonic polyps. However last night he experienced recurrent bleeding. His chief of complaint persists this morning wherein he started to get lightheaded, dizzy and weak. Additionally, patient underwent evaluation for his hematuria yesterday in [place] and was told no obvious source of urinary bleeding. His initial work up in ED shows a CBC remarkable for RBC of 3.18, Hgb of 10.3, Hct of 31.6, MCV of 99.4, MCH of 32.4, RDW of 47.2, MPV of 8.4, and Neutrophils of 72%. His chemistry is significant for Cl of 109, BUN of 20, BS of 155, Alk Phos of 43, Total Protein of 6.2, and Albumin of 3.2. While in ED, he was evaluated with rigid-sigmoidoscopy performed by Dr. Rivas and was found with blood clots and active bleeds. Dr. Rivas felt he would benefit with colonoscopy for further investigation. Patient is being admitted for acute symptomatic GI bleed. He is DNR/DNI. - Related Data Allergies/Adverse Reactions: Allergies Allergy/AdvReac Type Severity Reaction Status Date / Time No Known Allergies Allergy Verified 02/16/18 10:23 Home Medications: Home Meds Aspirin [Roseanne Chewable Aspirin] 81 mg PO DAILY 02/18/14 [History] Hydrochlorothiazide 25 mg PO DAILY 02/18/14 [History] Multivitamin/Iron/Folic Acid [Centrum Complete Multivit] 1 each PO DAILY 06/29/ 14 [History] atorvaSTATin [Lipitor] 20 mg PO DAILY 02/18/14 [History] Diltiazem [Cardizem CD] 120 mg PO DAILY 01/08/18 [History] [place]-3/DHA/Epa/Fish Oil [[place]-3 Fish Oil 1,200 MG Sfgl] 3,000 mg PO DAILY [History] Metoprolol Tartrate 50 mg PO BID 01/09/18 [History] Pantoprazole [ProTONIX] 20 mg PO DAILY 02/16/18 [History] Past Medical History HEENT History: Reports: Impaired Vision Other HEENT History: Eye glasses Cardiovascular History: Reports: Afib, High Cholesterol, Hypertension, Other ( See Below) Other Cardiovascular History: cardioverted Respiratory History: Reports: Sleep Apnea Gastrointestinal History: Reports: None Genitourinary History: Reports: Renal Calculus Musculoskeletal History: Reports: Back Pain, Chronic, Gout Dermatologic History: Reports: Cellulitis Other Dermatologic History: conerned for cancerous moles- doctor says they are okay - Infectious Disease History Infectious Disease History: Reports: Measles - Past Surgical History HEENT Surgical History: Reports: None Cardiovascular Surgical History: Reports: None Respiratory Surgical History: Reports: None GI Surgical History: Reports: Colonoscopy, EGD Male Surgical History: Reports: None Musculoskeletal Surgical History: Reports: None Dermatological Surgical History: Reports: None Social & Family History - Family History Family Medical History: Noncontributory - Tobacco Use Smoking Status *Q: Former Smoker Used Tobacco, but Quit: Yes Month/Year Tobacco Last Used: 1997 - Caffeine Use Caffeine Use: Reports: Coffee Other Caffeine Use: 10 Cups/Day Caffeine Use Comment: ` - Recreational Drug Use Recreational Drug Use: No - Living Situation & Occupation Living situation: Reports: Occupation: Retired H&P Review of Systems - Review of Systems: Review Of Systems: See Below General: Reports: Weakness. Denies: Fever, Chills, Fatigue HEENT: Reports: No Symptoms Pulmonary: Denies: Shortness of Breath Cardiovascular: Reports: Lightheadedness. Denies: Chest Pain, Palpitations, Dyspnea on Exertion, Orthopnea, Syncope, Claudication, Blood Pressure Problem Gastrointestinal: Reports: Bloody Stool, Flatus. Denies: Abdominal Pain, Constipation, Diarrhea, Decreased Appetite, Mucous in Stool, Nausea, Vomiting Genitourinary: Reports: No Symptoms Musculoskeletal: Reports: No Symptoms Skin: Denies: Cyanosis, Mottled, Pallor, Diaphoresis, Bruising, Erythema Psychiatric: Denies: Depression, Anxiety, Agitation, Hallucinations Neurological: Reports: Dizziness. Denies: Confusion, Seizure, Syncope, Difficulty Walking, Weakness, Gait Disturbance Hematologic/Lymphatic: Reports: Anemia, Easy Bleeding Immunologic: Reports: No Symptoms Exam - Exam Exam: See Below - Vital Signs Vital Signs: Last Vital Signs Temp 36.8 C 02/16/18 10:00 Pulse 75 02/16/18 10:00 Resp 12 02/16/18 10:00 BP 123/75 02/16/18 10:00 Pulse Ox 97 02/16/18 10:00 Orthostatic Blood Pressure [ 83/71 Standing] Orthostatic Blood Pressure [ 102/75 Sitting] Orthostatic Blood Pressure [ 108/65 Supine] Weight: 107.184 kg - Exam General: Alert, Oriented, Cooperative HEENT: Conjunctiva Clear, EACs Clear, EOMI, Hearing Intact, Mucosa Moist & [place] , Nares Patent, Normal Nasal Septum, Posterior Pharynx Clear, Pupils Equal, Pupils Reactive. No: Scleral Icterus Neck: Supple, Trachea Midline, +2 Carotid Pulse wo Bruit, Full Range of Motion Lungs: Clear to Auscultation, Normal Respiratory Effort Cardiovascular: Regular Rate, Regular Rhythm GI/Abdominal Exam: Normal Bowel Sounds, Soft, Non-Tender, No Organomegaly, No Distention, No Abnormal Bruit, No Mass (Male) Exam: Deferred Rectal (Males) Exam: Deferred Back Exam: Normal Inspection, Decreased Range of Motion Extremities: Normal Inspection, Normal Range of Motion, Non-Tender, No Pedal Edema, Normal Capillary Refill Peripheral Pulses: 3+: Posterior Tibial (L), Posterior Tibial (R), Dorsalis Pedis (L), Dorsalis Pedis (R) Skin: Warm, Dry, Intact Neuro Extensive - Mental Status: Oriented x3, Normal Cognition, Memory Intact Neuro Extensive - Motor, Sensory, Reflexes: CN II-XII Intact, Normal Gait Psychiatric: Alert, Normal Affect, Normal Mood - Patient Data Lab Results Last 24 hrs: Laboratory Results - last 24 hr 02/16/18 02/16/18 02/16/18 Range/Units 07:30 07:30 07:30 WBC 6.59 (4.23-9.07) K/mm3 RBC 3.18 L (4.63-6.08) M/mm3 Hgb 10.3 L (13.7-17.5) gm/L Hct 31.6 L (40.1-51.0) % MCV 99.4 H (79.0-92.2) fl MCH 32.4 H (25.7-32.2) pg MCHC 32.6 (32.2-35.5) g/dl RDW Std Deviation 47.2 H (35.1-43.9) fL Plt Count 289 (163-337) K/mm3 MPV 8.4 L (9.4-12.3) fl Neutrophils % (Manual) 72 H (40-60) % Band Neutrophils % 1 (0-10) % Lymphocytes % (Manual) 25 (20-40) % Atypical Lymphs % 0 % Monocytes % (Manual) 2 (2-10) % Eosinophils % (Manual) 0 L (0.8-7.0) % Basophils % (Manual) 0 L (0.2-1.2) Platelet Estimate Adequate RBC Morph Comment Normal PT 10.9 (9.5-12.1) SECONDS INR 1.00 Sodium 145 (136-145) mEq/L Potassium 3.5 (3.5-5.1) mEq/L Chloride 109 H (98-107) mEq/L Carbon Dioxide 29 (21-32) mEq/L Anion Gap 10.5 (5-15) BUN 20 H (7-18) mg/dL Creatinine 1.1 (0.7-1.3) mg/dL Est Cr Clr Drug Dosing 63.38 mL/min Estimated GFR (MDRD) > 60 (>60) mL/min BUN/Creatinine Ratio 18.2 H (14-18) Glucose 155 H (80-115) mg/dL Calcium 8.7 (8.5-10.1) mg/dL Magnesium (1.8-2.4) mg/dl Total Bilirubin 0.5 (0.2-1.0) mg/dL AST 26 (15-37) U/L ALT 42 (16-63) U/L Alkaline Phosphatase 43 L (46-116) U/L Total Protein 6.2 L (6.4-8.2) g/dl Albumin 3.2 L (3.4-5.0) g/dl Globulin 3.0 gm/dL Albumin/Globulin Ratio 1.1 (1-2) Blood Type Gel Antibody Screen 02/16/18 02/16/18 Range/Units 07:30 07:30 WBC (4.23-9.07) K/mm3 RBC (4.63-6.08) M/mm3 Hgb (13.7-17.5) gm/L Hct (40.1-51.0) % MCV (79.0-92.2) fl MCH (25.7-32.2) pg MCHC (32.2-35.5) g/dl RDW Std Deviation (35.1-43.9) fL Plt Count (163-337) K/mm3 MPV (9.4-12.3) fl Neutrophils % (Manual) (40-60) % Band Neutrophils % (0-10) % Lymphocytes % (Manual) (20-40) % Atypical Lymphs % % Monocytes % (Manual) (2-10) % Eosinophils % (Manual) (0.8-7.0) % Basophils % (Manual) (0.2-1.2) Platelet Estimate RBC Morph Comment PT (9.5-12.1) SECONDS INR Sodium (136-145) mEq/L Potassium (3.5-5.1) mEq/L Chloride (98-107) mEq/L Carbon Dioxide (21-32) mEq/L Anion Gap (5-15) BUN (7-18) mg/dL Creatinine (0.7-1.3) mg/dL Est Cr Clr Drug Dosing mL/min Estimated GFR (MDRD) (>60) mL/min BUN/Creatinine Ratio (14-18) Glucose (80-115) mg/dL Calcium (8.5-10.1) mg/dL Magnesium 1.8 (1.8-2.4) mg/dl Total Bilirubin (0.2-1.0) mg/dL AST (15-37) U/L ALT (16-63) U/L Alkaline Phosphatase (46-116) U/L Total Protein (6.4-8.2) g/dl Albumin (3.4-5.0) g/dl Globulin gm/dL Albumin/Globulin Ratio (1-2) Blood Type Gel Antibody Screen Negative Result Diagrams: 02/17/18 06:15 02/17/18 06:15 EKG INTERPRETATION EKG Date: 02/16/18 Time: 08:04 Rhythm: Other (sinus rhythm) Rate (Beats/Min): 83 QRS: LBBB QT: Prolonged Problem List Initiated/Reviewed/Updated: Yes Orders Last 24hrs: Active Orders 24 hr Category Date Time Status Admission Status [Patient Status] [ADT] Routine ADT 02/16/18 09:47 Active Sodium Chloride 0.9% [Normal Saline] 1,000 ml Med 02/16/18 08:00 Active IV ASDIRECTED Sodium Chloride 0.9% [Normal Saline] 1,000 ml Med 02/16/18 09:45 Active IV ASDIRECTED Medication Orders Sodium Chloride (Normal Saline) 1,000 mls @ 500 mls/hr IV ASDIRECTED MARYCARMEN Sodium Chloride (Normal Saline) 1,000 mls @ 200 mls/hr IV ASDIRECTED MARYCARMEN Last Admin: 02/16/18 09:44 Dose: 200 mls/hr Assessment/Plan Comment:: Assessment/Plan: Acute: Symptomatic GI Bleed - S/p Recent Outpatient Colonoscopy with multiple colon polyps - Off Xarelto - Has had multiple GI bleed since last night - Hgb is at 10 (baseline 14) - Dr. Rivas performed rigid-sigmoidoscopy in ED and recommends colonoscopy for further investigation - Suspect 2/2 Angiodysplasia - Vitals good and he looks clinically stable - H/H Q6-8 - No anticoags and hold ASA for now - Type and screen for blood transfusion if needed - Consult GS Anemia - 2/2 GI Bleed - Hgb is 10 - Currently receiving IVF; expect hemodilution on repeat level - Serial H/H Borderline Hypotension with Orthostatis - 2/2 GI Bleed - Currently on volume resuscitation - ICU for hemodynamic monitoring Multiple Polyps S/p Colonoscopy at [facility] Chronic: PAF now off Xarelto HTN HLD Gout Back Pain Plan: Admit to ICU Resume Home Meds No ASA/Anticoags and NSAIDs Serial H/H NPO for now GS consult DVT PPx: SCDs SW/CM for d/c planning Code status: DNR/DNI
[2018-02-16] MEDS ORDERED: LORazepam 2 MG/ML SDV IVPUSH PRN (10:58)
[2018-02-16] MEDS ORDERED: Metoprolol Tartrate 5 MG/5 ML SDV IVPUSH PRN (10:58)
[2018-02-16] MEDS ORDERED: hydrALAZINE 20 MG/ML SDV IVPUSH PRN (10:58)
[2018-02-16] MEDS ORDERED: Albuterol/Ipratropium 3.0-0.5 MG/3 ML Neb Soln NEB PRN (10:59)
[2018-02-16] MEDS ORDERED: Promethazine 12.5 MG in Sodium Chloride 0.9% 50 ML IV PRN (10:59)
[2018-02-16] MEDS ORDERED: Acetaminophen/HYDROcodone 325-5 MG Tab PO PRN (10:59)
[2018-02-16] MEDS ORDERED: LORazepam 2 MG/ML SDV IV PRN (10:59)
[2018-02-16] MEDS ORDERED: Acetaminophen 325 MG Tab PO PRN (10:59)
[2018-02-16] MEDS ORDERED: HYDROmorphone 0.5 MG/0.5 ML SYRINGE IVPUSH PRN (10:59)
[2018-02-16] MEDS ORDERED: Ondansetron 4 MG/2 ML SDV IV PRN (10:59)
--- NOTE | 2018-02-16 14:53 | PCM.CONS ---
H&P History of Present Illness - General Date of Service: 02/16/18 Admit Problem/Dx: Admission Diagnosis/Problem Admission Diagnosis/Problem Gastrointestinal hemorrhage Source of Information: Patient, Family, Provider, RN History Limitations: Reports: No Limitations - History of Present Illness Initial Comments - Free Text/Narative: 67-year-old male presents with a history of atrial fibrillation beginning about a month ago. He was chemically converted and placed on Xarelto. Shortly after words he experienced painless gross terminal hematuria that lasted for a couple of days then cleared. He has a history of left ureteral stones which were surgically extracted some years ago. Because of the bleeding he was seen by his provider who stopped the Xarelto and he was referred for urologic consultation. He underwent a cystoscopy which by report from him was within normal limits. He did well until about 2 weeks ago when he passed several melenic and red bloody stools. This cleared after a couple of days. He was seen by his provider again who recommended an upper endoscopy along with a colonoscopy which was done about 9 days ago. The upper endoscopy was remarkable for small bleeding angiodysplastic gastric lesions. The colonoscopy was remarkable for 6 small polyps which were removed. He was placed on Protonix empirically at that time. 2 days ago he experienced melenic along with red bloody stools as well. Yesterday he had a couple more episodes and became diaphoretic and lightheaded. This caused him to present to the emergency room for evaluation. He was orthostatic in the ED. A proctosigmoidoscopy was performed by ED staff and was remarkable for bleeding from an upper GI source beyond the confines of the anal canal and rectum. Because of his symptomatic anemia he was admitted to the hospitalist service. The patient denies a history of reflux symptoms as well as abdominal pain. His appetite and weight have been fine. His father had colon cancer. His mother had gastric ulcers. He's had no previous abdominal surgery. - Related Data Allergies/Adverse Reactions: Allergies Allergy/AdvReac Type Severity Reaction Status Date / Time No Known Allergies Allergy Verified 02/16/18 10:23 Home Medications: Home Meds Aspirin [Roseanne Chewable Aspirin] 81 mg PO DAILY 02/18/14 [History] Hydrochlorothiazide 25 mg PO DAILY 02/18/14 [History] Multivitamin/Iron/Folic Acid [Centrum Complete Multivit] 1 each PO DAILY [History] atorvaSTATin [Lipitor] 20 mg PO DAILY 02/18/14 [History] Diltiazem [Cardizem CD] 120 mg PO DAILY 01/08/18 [History] [place]-3/DHA/Epa/Fish Oil [[place]-3 Fish Oil 1,200 MG Sfgl] 3,000 mg PO DAILY [History] Metoprolol Tartrate 50 mg PO BID 01/09/18 [History] Pantoprazole [ProTONIX] 20 mg PO DAILY 02/16/18 [History] Past Medical History HEENT History: Reports: Impaired Vision Other HEENT History: Eye glasses Cardiovascular History: Reports: Afib, High Cholesterol, Hypertension, Other ( See Below) Other Cardiovascular History: cardioverted Respiratory History: Reports: Sleep Apnea Gastrointestinal History: Reports: None Genitourinary History: Reports: Renal Calculus Musculoskeletal History: Reports: Back Pain, Chronic, Gout Dermatologic History: Reports: Cellulitis Other Dermatologic History: conerned for cancerous moles- doctor says they are okay - Infectious Disease History Infectious Disease History: Reports: Measles - Past Surgical History HEENT Surgical History: Reports: None Cardiovascular Surgical History: Reports: None Respiratory Surgical History: Reports: None GI Surgical History: Reports: Colonoscopy, EGD Male Surgical History: Reports: None Musculoskeletal Surgical History: Reports: None Dermatological Surgical History: Reports: None Social & Family History - Family History Family Medical History: Noncontributory - Tobacco Use Smoking Status *Q: Former Smoker Used Tobacco, but Quit: Yes Month/Year Tobacco Last Used: 1997 - Caffeine Use Caffeine Use: Reports: Coffee Other Caffeine Use: 10 Cups/Day Caffeine Use Comment: ` - Recreational Drug Use Recreational Drug Use: No - Living Situation & Occupation Living situation: Reports: Occupation: Retired H&P Review of Systems - Review of Systems: Review Of Systems: ROS reveals no pertinent complaints other than HPI. Exam - Exam Exam: See Below - Vital Signs Vital Signs: Last Vital Signs Temp 36.8 C 02/16/18 12:00 Pulse 78 02/16/18 12:00 Resp 20 02/16/18 12:00 BP 123/67 02/16/18 12:00 Pulse Ox 95 02/16/18 12:00 Orthostatic Blood Pressure [ 83/71 Standing] Orthostatic Blood Pressure [ 102/75 Sitting] Orthostatic Blood Pressure [ 108/65 Supine] Weight: 107.184 kg - Exam General: Alert, Oriented, Cooperative HEENT: EOMI, Hearing Intact Neck: Supple, Trachea Midline Lungs: Clear to Auscultation, Normal Respiratory Effort Cardiovascular: Regular Rate, Regular Rhythm, Normal S1, Normal S2 GI/Abdominal Exam: Normal Bowel Sounds, Soft, Non-Tender, No Organomegaly (Male) Exam: Deferred Rectal (Males) Exam: Deferred Back Exam: Full Range of Motion Extremities: Normal Inspection Skin: Warm, Dry, Intact Neuro Extensive - Mental Status: Alert, Oriented x3, Normal Mood/Affect, Normal Cognition Psychiatric: Alert, Normal Affect, Normal Mood - Patient Data Lab Results Last 24 hrs: Laboratory Results - last 24 hr 02/16/18 02/16/18 02/16/18 Range/Units 07:30 07:30 07:30 WBC 6.59 (4.23-9.07) K/mm3 RBC 3.18 L (4.63-6.08) M/mm3 Hgb 10.3 L (13.7-17.5) gm/L Hct 31.6 L (40.1-51.0) % MCV 99.4 H (79.0-92.2) fl MCH 32.4 H (25.7-32.2) pg MCHC 32.6 (32.2-35.5) g/dl RDW Std Deviation 47.2 H (35.1-43.9) fL Plt Count 289 (163-337) K/mm3 MPV 8.4 L (9.4-12.3) fl Neutrophils % (Manual) 72 H (40-60) % Band Neutrophils % 1 (0-10) % Lymphocytes % (Manual) 25 (20-40) % Atypical Lymphs % 0 % Monocytes % (Manual) 2 (2-10) % Eosinophils % (Manual) 0 L (0.8-7.0) % Basophils % (Manual) 0 L (0.2-1.2) Platelet Estimate Adequate RBC Morph Comment Normal PT 10.9 (9.5-12.1) SECONDS INR 1.00 Sodium 145 (136-145) mEq/L Potassium 3.5 (3.5-5.1) mEq/L Chloride 109 H (98-107) mEq/L Carbon Dioxide 29 (21-32) mEq/L Anion Gap 10.5 (5-15) BUN 20 H (7-18) mg/dL Creatinine 1.1 (0.7-1.3) mg/dL Est Cr Clr Drug Dosing 63.38 mL/min Estimated GFR (MDRD) > 60 (>60) mL/min BUN/Creatinine Ratio 18.2 H (14-18) Glucose 155 H (80-115) mg/dL Calcium 8.7 (8.5-10.1) mg/dL Magnesium (1.8-2.4) mg/dl Total Bilirubin 0.5 (0.2-1.0) mg/dL AST 26 (15-37) U/L ALT 42 (16-63) U/L Alkaline Phosphatase 43 L (46-116) U/L Total Protein 6.2 L (6.4-8.2) g/dl Albumin 3.2 L (3.4-5.0) g/dl Globulin 3.0 gm/dL Albumin/Globulin Ratio 1.1 (1-2) Blood Type Gel Antibody Screen 02/16/18 02/16/18 02/16/18 Range/Units 07:30 07:30 13:08 WBC (4.23-9.07) K/mm3 RBC (4.63-6.08) M/mm3 Hgb 8.4 L (13.7-17.5) gm/L Hct 26.5 L (40.1-51.0) % MCV (79.0-92.2) fl MCH (25.7-32.2) pg MCHC (32.2-35.5) g/dl RDW Std Deviation (35.1-43.9) fL Plt Count (163-337) K/mm3 MPV (9.4-12.3) fl Neutrophils % (Manual) (40-60) % Band Neutrophils % (0-10) % Lymphocytes % (Manual) (20-40) % Atypical Lymphs % % Monocytes % (Manual) (2-10) % Eosinophils % (Manual) (0.8-7.0) % Basophils % (Manual) (0.2-1.2) Platelet Estimate RBC Morph Comment PT (9.5-12.1) SECONDS INR Sodium (136-145) mEq/L Potassium (3.5-5.1) mEq/L Chloride (98-107) mEq/L Carbon Dioxide (21-32) mEq/L Anion Gap (5-15) BUN (7-18) mg/dL Creatinine (0.7-1.3) mg/dL Est Cr Clr Drug Dosing mL/min Estimated GFR (MDRD) (>60) mL/min BUN/Creatinine Ratio (14-18) Glucose (80-115) mg/dL Calcium (8.5-10.1) mg/dL Magnesium 1.8 (1.8-2.4) mg/dl Total Bilirubin (0.2-1.0) mg/dL AST (15-37) U/L ALT (16-63) U/L Alkaline Phosphatase (46-116) U/L Total Protein (6.4-8.2) g/dl Albumin (3.4-5.0) g/dl Globulin gm/dL Albumin/Globulin Ratio (1-2) Blood Type Gel Antibody Screen Negative Result Diagrams: 02/16/18 13:08 02/16/18 07:30 Consult PN Assessment/Plan Procedures: Procedures ASSAY OF FREE THYROXINE (01/08/18) ASSAY OF MAGNESIUM (01/08/18) ASSAY OF NATRIURETIC PEPTIDE (02/19/14) ASSAY OF TROPONIN QUANT (01/08/18) ASSAY THYROID STIM HORMONE (01/08/18) CHEST X-RAY 1 VIEW FRONTAL (02/19/14) COMPLETE CBC W/AUTO DIFF WBC (01/08/18) COMPREHEN METABOLIC PANEL (01/08/18) CREATINE MB FRACTION (01/08/18) CT ABD & PELVIS W/O CONTRAST (01/09/15) DRUG TEST PRSMV INSTRMNT (01/08/18) ELECTROCARDIOGRAM TRACING (01/08/18) EMERGENCY DEPT VISIT (01/09/15) EMERGENCY DEPT VISIT (02/19/14) HYDRATE IV INFUSION ADD-ON (01/09/15) HYDRATION IV INFUSION INIT (01/09/15) LIPID PANEL (01/08/18) METABOLIC PANEL TOTAL CA (01/08/18) PROTHROMBIN TIME (01/08/18) ROUTINE VENIPUNCTURE (01/08/18) THER/PROPH/DIAG IV INF ADDON (02/19/14) THER/PROPH/DIAG IV INF INIT (02/19/14) THROMBOPLASTIN TIME PARTIAL (02/19/14) TTE W/DOPPLER COMPLETE (02/19/14) TX/PRO/DX INJ SAME DRUG BOOK OR SCRIPT EDITOR (02/19/14) URINALYSIS AUTO W/SCOPE (01/09/15) X-RAY EXAM CHEST 1 VIEW (01/08/18) (1) Acute lower gastrointestinal bleeding SNOMED Code(s): 89518180 Code(s): K92.2 - GASTROINTESTINAL HEMORRHAGE, UNSPECIFIED Priority: Medium Current Visit: Yes Assessment:: Acute blood loss anemia most likely from an upper GI source. A lower GI source is also possible. He has an apparent history of friable angiodysplastic lesions of the upper GI tract as well. The patient isn't sure. These lesions may be responsible for his recurrent bleeding. There may also be other previously undiagnosed peptic change as well. I recommend follow-up diagnostic possible therapeutic endoscopy given that he has symptomatic bleeding. Problem List Initiated/Reviewed/Updated: Yes Plan: Diagnostic EGD and colonoscopy tomorrow with possible cautery of any bleeding lesions. GoLYTELY bowel preparation this evening. The patient is familiar with the procedure and wants to proceed.
[2018-02-16] MEDS ORDERED: Polyethylene Glycol/Electrolytes 4,000 ML Bottle PO ONE (15:04)
[2018-02-16] MEDS: Metoprolol Tartrate 50 MG Tab PO SCH (21:27)
[2018-02-17] MEDS ORDERED: Lidocaine 1% 4 ML ONE (06:20)
[2018-02-17] MEDS ORDERED: fentaNYL 100 MCG/2 ML SDV ONE (06:20)
[2018-02-17] MEDS ORDERED: Propofol 200 MG/20 ML SDV ONE ×2 (06:20→06:21)
[2018-02-17] MEDS ORDERED: Midazolam 1 MG/ML 2 ML SDV ONE (06:20)
--- NOTE | 2018-02-17 06:57 | PCM.PREANE ---
Preanesthetic Assessment - Procedure Proposed Procedure: EGD Colonoscopy - Anesthesia/Transfusion/Family Hx Anesthesia History: Prior Anesthesia Without Reaction Family History of Anesthesia Reaction: No Transfusion History: No Prior Transfusion(s) - Review of Systems General: No Symptoms Pulmonary: Shortness of Breath (if works hard- unchanged) Cardiovascular: No Symptoms, Other (afib) Gastrointestinal: Hematochezia Neurological: No Symptoms Other: Reports: None - Physical Assessment Pulse: 73 O2 Sat by Pulse Oximetry: 97 Respiratory Rate: 20 Blood Pressure: 125/67 Vital Signs: Last Vital Signs Temp 97.8 F 02/17/18 04:00 Pulse 67 02/16/18 23:25 Resp 20 02/17/18 04:00 BP 125/67 02/17/18 04:00 Pulse Ox 98 02/17/18 04:00 Orthostatic Blood Pressure [ 83/71 Standing] Orthostatic Blood Pressure [ 102/75 Sitting] Orthostatic Blood Pressure [ 108/65 Supine] Height: 5 ft 9 in Weight: 106.64 kg ASA Class: 2 Mental Status: Alert & Oriented x3 Airway Class: Mallampati = 1 Dentition: Reports: Dentures (top and bottom) Thyro-Mental Finger Breadths: 3 Mouth Opening Finger Breadths: 3 ROM/Head Extension: Full Lungs: Clear to Auscultation, Normal Respiratory Effort Cardiovascular: Regular Rate, Regular Rhythm - Lab Values: Laboratory Last Values WBC 6.59 K/mm3 (4.23-9.07) 02/16/18 07:30 RBC 3.18 M/mm3 (4.63-6.08) L 02/16/18 07:30 Hgb 8.0 gm/L (13.7-17.5) L 02/17/18 06:15 Hct 25.5 % (40.1-51.0) L 02/17/18 06:15 MCV 99.4 fl (79.0-92.2) H 02/16/18 07:30 MCH 32.4 pg (25.7-32.2) H 02/16/18 07:30 MCHC 32.6 g/dl (32.2-35.5) 02/16/18 07:30 RDW Std Deviation 47.2 fL (35.1-43.9) H 02/16/18 07:30 Plt Count 289 K/mm3 (163-337) 02/16/18 07:30 MPV 8.4 fl (9.4-12.3) L 02/16/18 07:30 Neutrophils % (Manual) 72 % (40-60) H 02/16/18 07:30 Band Neutrophils % 1 % (0-10) 02/16/18 07:30 Lymphocytes % (Manual) 25 % (20-40) 02/16/18 07:30 Atypical Lymphs % 0 % 02/16/18 07:30 Monocytes % (Manual) 2 % (2-10) 02/16/18 07:30 Eosinophils % (Manual) 0 % (0.8-7.0) L 02/16/18 07:30 Basophils % (Manual) 0 (0.2-1.2) L 02/16/18 07:30 Platelet Estimate Adequate 02/16/18 07:30 RBC Morph Comment Normal 02/16/18 07:30 PT 10.9 SECONDS (9.5-12.1) 02/16/18 07:30 INR 1.00 02/16/18 07:30 Sodium 145 mEq/L (136-145) 02/16/18 07:30 Potassium 3.5 mEq/L (3.5-5.1) 02/16/18 07:30 Chloride 109 mEq/L (98-107) H 02/16/18 07:30 Carbon Dioxide 29 mEq/L (21-32) 02/16/18 07:30 Anion Gap 10.5 (5-15) 02/16/18 07:30 BUN 20 mg/dL (7-18) H 02/16/18 07:30 Creatinine 1.1 mg/dL (0.7-1.3) 02/16/18 07:30 Est Cr Clr Drug Dosing 63.38 mL/min 02/16/18 07:30 Estimated GFR (MDRD) > 60 mL/min (>60) 02/16/18 07:30 BUN/Creatinine Ratio 18.2 (14-18) H 02/16/18 07:30 Glucose 155 mg/dL (80-115) H 02/16/18 07:30 Calcium 8.7 mg/dL (8.5-10.1) 02/16/18 07:30 Magnesium 1.8 mg/dl (1.8-2.4) 02/16/18 07:30 Total Bilirubin 0.5 mg/dL (0.2-1.0) 02/16/18 07:30 AST 26 U/L (15-37) 02/16/18 07:30 ALT 42 U/L (16-63) 02/16/18 07:30 Alkaline Phosphatase 43 U/L (46-116) L 02/16/18 07:30 Total Protein 6.2 g/dl (6.4-8.2) L 02/16/18 07:30 Albumin 3.2 g/dl (3.4-5.0) L 02/16/18 07:30 Globulin 3.0 gm/dL 02/16/18 07:30 Albumin/Globulin Ratio 1.1 (1-2) 02/16/18 07:30 Blood Type 02/16/18 07:30 Gel Antibody Screen Negative 02/16/18 07:30 - Allergies Allergies/Adverse Reactions: Allergies Allergy/AdvReac Type Severity Reaction Status Date / Time No Known Allergies Allergy Verified 02/16/18 10:23 - Blood Blood Available: No - Anesthesia Plan Beta Sheri: Metoprolol Med Last Dose Date: 02/17/18 Med Last Dose Time: 07:00 - Acknowledgements Anesthesia Type Planned: MAC Pt an Appropriate Candidate for the Planned Anesthesia: Yes Alternatives and Risks of Anesthesia Discussed w Pt/Guardian: Yes Pt/Guardian Understands and Agrees with Anesthesia Plan: Yes PreAnesthesia Questionnaire HEENT History: Reports: Impaired Vision Other HEENT History: Eye glasses Cardiovascular History: Reports: Afib, High Cholesterol, Hypertension, Other ( See Below) Other Cardiovascular History: cardioverted Respiratory History: Reports: Sleep Apnea, Other (See Below) (cpap at night) Gastrointestinal History: Reports: None Genitourinary History: Reports: Renal Calculus Musculoskeletal History: Reports: Back Pain, Chronic, Gout Dermatologic History: Reports: Cellulitis Other Dermatologic History: conerned for cancerous moles- doctor says they are okay - Infectious Disease History Infectious Disease History: Reports: Measles - Past Surgical History HEENT Surgical History: Reports: None Cardiovascular Surgical History: Reports: None Respiratory Surgical History: Reports: None GI Surgical History: Reports: Colonoscopy, EGD Male Surgical History: Reports: None Musculoskeletal Surgical History: Reports: None Dermatological Surgical History: Reports: None - SUBSTANCE USE Smoking Status *Q: Former Smoker (quit 19 years ago) Tobacco Use Within Last Twelve Months: No Second Hand Smoke Exposure: No Days Per Week of Alcohol Use: 0 Recreational Drug Use History: No - HOME MEDS Home Medications: Home Meds Aspirin [Roseanne Chewable Aspirin] 81 mg PO DAILY 02/18/14 [History] Hydrochlorothiazide 25 mg PO DAILY 02/18/14 [History] Multivitamin/Iron/Folic Acid [Centrum Complete Multivit] 1 each PO DAILY [History] atorvaSTATin [Lipitor] 20 mg PO DAILY 02/18/14 [History] Diltiazem [Cardizem CD] 120 mg PO DAILY 01/08/18 [History] [place]-3/DHA/Epa/Fish Oil [[place]aine-3 Fish Oil 1,200 MG Sfgl] 3,000 mg PO DAILY [History] Metoprolol Tartrate 50 mg PO BID 01/09/18 [History] Pantoprazole [ProTONIX] 20 mg PO DAILY 02/16/18 [History] - CURRENT (IN HOUSE) MEDS Current Meds: Current Medications Acetaminophen (Tylenol) 650 mg PO Q4H PRN PRN Reason: Pain (Mild 1-3)/fever Hydrocodone Bitart/Acetaminophen (Harshaw 325-5 Mg) 1 tab PO Q4H PRN PRN Reason: Pain (moderate 4-6) Albuterol/Ipratropium (Duoneb 3.0-0.5 Mg/3 Ml) 3 ml NEB Q4H PRN PRN Reason: Shortness Of Breath/wheezing Diltiazem HCl (Cardizem Cd) 120 mg PO DAILY [facility] Hydralazine HCl (Apresoline) 20 mg IVPUSH Q4H PRN PRN Reason: Hypertension Hydrochlorothiazide (Hydrochlorothiazide) 25 mg PO DAILY [facility] Hydromorphone HCl (Dilaudid) 0.25 mg IVPUSH Q2H PRN PRN Reason: Pain (severe 7-10) Promethazine HCl 12.5 mg/ (Sodium Chloride) 50.5 mls @ 100 mls/hr IV Q6H PRN PRN Reason: Nausea/Vomiting Lorazepam (Ativan) 2 mg IVPUSH Q4H PRN PRN Reason: Seizures Lorazepam (Ativan) 0.5 mg IV Q6H PRN PRN Reason: Anxiety Metoprolol Tartrate (Lopressor) 5 mg IVPUSH Q4H PRN PRN Reason: Tachycardia Metoprolol Tartrate (Lopressor) 50 mg PO BID [facility] Last Admin: 02/16/18 21:27 Dose: 50 mg Ondansetron HCl (Zofran) 4 mg IV Q6H PRN PRN Reason: Nausea/Vomiting Pantoprazole Sodium (Protonix) 20 mg PO DAILY [facility] Atorvastatin 20 Mg 0 each PO DAILY [facility] Potassium Chloride (Pharmacy To Dose - Potassium Replacement) 1 dose .XX ASDIRECTED [facility] Discontinued Medications Fentanyl (Sublimaze) Confirm Administered Dose 100 mcg .ROUTE .STK-MED ONE Stop: 02/17/18 06:21 Sodium Chloride (Normal Saline) 1,000 mls @ 250 mls/hr IV ASDIRECTED [facility] Last Admin: 02/16/18 07:41 Dose: 250 mls/hr Sodium Chloride (Normal Saline) 1,000 mls @ 500 mls/hr IV ASDIRECTED [facility] Sodium Chloride (Normal Saline) 1,000 mls @ 200 mls/hr IV ASDIRECTED [facility] Last Admin: 02/16/18 09:44 Dose: 200 mls/hr Lidocaine HCl (Xylocaine-Mpf 1%) Confirm Administered Dose 4 mls @ as directed .ROUTE .STK-MED ONE Stop: 02/17/18 06:21 Lidocaine HCl (Xylocaine 2% Jelly) 10 ml MUCMEM ONETIME ONE Stop: 02/16/18 08:19 Last Admin: 02/16/18 08:30 Dose: 10 ml Midazolam HCl (Versed 1 Mg/Ml) Confirm Administered Dose 2 mg .ROUTE .STK-MED ONE Stop: 02/17/18 06:21 Polyethylene Glycol/Electrolytes (Golytely) 4,000 ml PO ONETIME ONE Stop: 02/16/18 15:05 Last Admin: 02/16/18 17:19 Dose: 4,000 ml Propofol (Diprivan 20 Ml) Confirm Administered Dose 200 mg .ROUTE .STK-MED ONE Stop: 02/17/18 06:21 Propofol (Diprivan 20 Ml) Confirm Administered Dose 200 mg .ROUTE .STK-MED ONE Stop: 02/17/18 06:22
[2018-02-17] MEDS: Metoprolol Tartrate 50 MG Tab PO SCH ×2 (07:18→09:00)
[2018-02-17] MEDS ORDERED: Lactated Ringers 1,000 ML ONE (08:06)
--- NOTE | 2018-02-17 08:45 | PCM.POSTAN ---
POST ANESTHESIA ASSESSMENT - MENTAL STATUS Mental Status: Alert, Oriented - VITAL SIGNS Pulse Rate: 66 SaO2: 94 Resp Rate: 16 Blood Pressure: 101/68 - RESPIRATORY Respiratory Status: Respiratory Rate WNL, Airway Patent, O2 Saturation Stable - CARDIOVASCULAR CV Status: Pulse Rate WNL, Blood Pressure Stable - GASTROINTESTINAL GI Status: No Symptoms - PAIN Pain Score: 0 - POST OP HYDRATION Hydration Status: Adequate & Stable
--- NOTE | 2018-02-17 08:48 | PCM.OPNOTE ---
- General Post-Op/Procedure Note Date of Surgery/Procedure: 02/17/18 Operative Procedure(s): 1. Diagnostic Esophagogastroduodenoscopy. 2. Diagnostic colonoscopy with descending colonic and sigmoid polypectomies 6 using cold forceps Findings: 1. Diffuse gastritis along the high lesser curvature of the stomach without ulcerations, Kelly-Santiago tears, varices or angiodysplastic lesions. 2. Diminutive polyps of the descending and sigmoid colons all less than 5 mm each. There were remaining mucosal excrescences seen throughout the descending and sigmoid colons. There was no luminal acute or chronic blood present. There are no mass lesions except for the small polyp seen. Pre Op Diagnosis: Acute symptomatic blood loss anemia Post-Op Diagnosis: 1. Gastritis proximal stomach. 2. Multiple colon polyps Anesthesia Technique: MAC, Moderate Sedation Primary Surgeon: Hieu Meyer Pathology: Multiple polyps EBL in mLs: 0 Complications: None Condition: Good Free Text/Narrative:: Intake & Output 02/16/18 02/17/18 02/17/18 22:59 06:59 14:59 Intake Total 1800 3000 Output Total 150 Balance 1650 3000 After adequate IV sedation and analgesia was obtained with monitoring the patient was placed on his left side. Through a bite block a lubricated upper endoscope was inserted into the esophagus then advanced under direct vision to the stomach. Additional air was given here. There was no luminal blood present. The scope was advanced towards the antrum and then through the pylorus to the second part of the duodenum. The second and first parts were endoscopically normal and had no mass lesions or inflammatory changes which were seen. There was no luminal blood within the duodenum. There were no ulcers. The scope was withdrawn into the antral area which was endoscopically normal. In the retroflexed view I could see the areas of mucosal inflammation which were patchy along the upper lesser curve. There was no hiatal hernia very Dontrell Vargas Santiago tears. The fundic region was grossly normal. The rugal fold also grossly normal outside the areas of the gastritis. The GE junction was sharp and had no endoscopic esophagitis. The body of the esophagus was grossly normal. The vocal cords were also grossly normal. Perianal inspection and digital rectal examination were performed next and were normal. The prostate was unremarkable. A lubricated colonoscope was inserted into the rectum and advanced to the cecum without difficulty. The bowel preparation was excellent. The cecum ascending colon and transverse colons were endoscopically normal. There were no mass lesions or polyp or angiodysplastic lesions. There was no colonic luminal blood acute or chronic present. The scope was withdrawn to the descending colon there were 2 diminutive polyps at 70 and 50 cm 2 each. Cold forceps were used to retrieve the 4 polyps which were sent to pathology. The patient had multiple mucosal excrescences throughout the descending colon and sigmoid which were left. The sigmoid had 2 similar diminutive polyps which were removed with cold forceps. The polypectomy sites were hemostatic and all specimens were retrieved. The rectum in both views was unremarkable. Air was removed as I finished the procedure which he tolerated well. Bed Machine Operator photographs were taken for the patient and for the medical record. Given the number of polyps over the past 2 weeks that this patient had removed and given his first-degree family history of colon cancer I recommend follow-up colonoscopy in one to 2 years.
[2018-02-17] MEDS ORDERED: Diltiazem 120 MG Cap.CD PO SCH (09:00)
[2018-02-17] MEDS ORDERED: Pantoprazole 40 MG Tab.CR PO SCH (09:00)
[2018-02-17] MEDS ORDERED: Hydrochlorothiazide 25 MG Tab PO SCH (09:00)
[2018-02-17] MEDS ORDERED: Folic Acid 1 MG Tab PO ONE (09:42)
--- NOTE | 2018-02-17 11:54 | PCM48HPAN ---
Post Anesthesia Note - EVALUATION WITHIN 48HRS OF ANESTHETIC Vital Signs in Normal Range: Yes Patient Participated in Evaluation: Yes Respiratory Function Stable: Yes Airway Patent: Yes Cardiovascular Function Stable: Yes Hydration Status Stable: Yes Pain Control Satisfactory: Yes Nausea and Vomiting Control Satisfactory: Yes Mental Status Recovered: Yes Pulse Rate: 63 Resp Rate: 18 Blood Pressure: 101/68
[2018-02-17 12:05] VITALS: BP 108/61
--- NOTE | 2018-02-17 12:14 | PCM.DCSUM1 ---
<Terra Domingo - Last Filed: 02/17/18 13:39> Discharge Summary - Hospital Course HPI Initial Comments: This is a 67 yo white male with past medical hx/o PAF, HTN, HLD, CHARAN, Back Pain , and Gout who comes in for evaluation of rectal bleed. Patient carries a hx/o PAF on xarelto for stroke prophylaxis. However he started to develop GI bleed and Hematuria so he was taken off for at least 6 days and underwent upper and lower endoscopy. The procedure was performed by his PCP, Dr. Murray at the clinic. Per secondary sources, they found lesions suspicious for angiodysplasia and multiple colonic polyps. However last night he experienced recurrent bleeding. His chief of complaint persists this morning wherein he started to get lightheaded, dizzy and weak. Additionally, patient underwent evaluation for his hematuria yesterday in [place] and was told no obvious source of urinary bleeding. His initial work up in ED shows a CBC remarkable for RBC of 3.18, Hgb of 10.3, Hct of 31.6, MCV of 99.4, MCH of 32.4, RDW of 47.2, MPV of 8.4, and Neutrophils of 72%. His chemistry is significant for Cl of 109, BUN of 20, BS of 155, Alk Phos of 43, Total Protein of 6.2, and Albumin of 3.2. While in ED, he was evaluated with rigid-sigmoidoscopy performed by Dr. Rivas and was found with blood clots and active bleeds. Dr. Rivas felt he would benefit with colonoscopy for further investigation. Patient is being admitted for acute symptomatic GI bleed. He is DNR/DNI. Diagnosis: Stroke: No - Discharge Data Discharge Date: 02/17/18 Discharge Disposition: Home, Self-Care 01 Condition: Good - Patient Summary/Data Operative Procedure(s) Performed: 1. Diagnostic Esophagogastroduodenoscopy. 2. Diagnostic colonoscopy with descending colonic and sigmoid polypectomies 6 using cold forceps Complications: None Consults: Consultations 02/16/18 11:03 Consult to Case Management [CONS] Routine Consult to Physician [CONS] Routine Labs Pending at D/C: None Recommended Follow-up Testing/Procedures: PCP in 1-2 weeks Planned Operative Procedure(s) after DC: Colonscopy in 1-2 years Hospital Course: Assessment/Plan: Acute: Symptomatic GI Bleed - S/p Recent Outpatient Colonoscopy with multiple colon polyps - Off Xarelto - Has had multiple GI bleed since evening of 02/15/18 - Hgb declined to 10.3 (baseline 14) with today's level 8.0 - Dr. Rivas performed rigid-sigmoidoscopy in ED and recommends colonoscopy for further investigation - Suspect 2/2 Angiodysplasia - Vitals good and he looks clinically stable - H/H Q6-8 - No anticoags and hold ASA for now - Type and screen for blood transfusion if needed - Consult GS --> performed EGD and colonscopy with findings of diffuse gastritis along the high lesser curvature of the stomach and polyps in descending and sigmoid colons; Dr. Meyer recommended repeat colonoscopy in 1- 2 years Anemia - 2/2 GI Bleed - Hgb 8.0, yesterday 10.3 - Currently receiving IVF; expect hemodilution on repeat level - Iron IV prior to discharge - Serial H/H Hypokalemia - 3.3 today, yesterday 3.5 - Likely related to hemodilution - Pharmacy to replete - Monitor Multiple Polyps S/p Colonoscopy at [facility] Resolved: Borderline Hypotension with Orthostatis, resolved - 2/2 GI Bleed - Currently on volume resuscitation - ICU for hemodynamic monitoring Chronic: PAF now off Xarelto HTN HLD Gout Back Pain Plan: Admit to ICU Resume Home Meds No ASA/Anticoags and NSAIDs Serial H/H NPO for now GS consult DVT PPx: SCDs SW/CM for d/c planning Code status: DNR/DNI PCP: Dr. Amish Melchor [facility] Course: Arnaldo was admitted for acute symptomatic GI bleed. Patient carries a hx/o PAF on xarelto for stroke prophylaxis. However, he started to develop GI bleed and hematuria so he was taken off the xarelto for at least 6 days and underwent upper and lower endoscopy. The procedure was performed by his PCP, Dr. Murray , at the clinic. Per secondary sources, they found lesions suspicious for angiodysplasia and multiple colonic polyps. Xarelto was discontinued over 2 weeks ago. Unfortunately, two days ago he experienced recurrent bleeding and he began to feel lightheaded, dizzy and weak. Additionally, patient underwent evaluation for his hematuria 2 days ago in [place] and was told no obvious source of urinary bleeding. His initial work up in ED showed a CBC remarkable for RBC of 3.18, Hgb of 10.3, Hct of 31.6, MCV of 99.4, MCH of 32.4, RDW of 47.2 , MPV of 8.4, and Neutrophils of 72%. His chemistry was significant for Cl of 109, BUN of 20, BS of 155, Alk Phos of 43, Total Protein of 6.2, and Albumin of 3.2. Per records, baseline Hgb is around 14. While in ED, he was evaluated with rigid-sigmoidoscopy performed by Dr. Rivas and was found with blood clots and active bleeds. Dr. Rivas recommended colonoscopy for further investigation. Aspirin was held and general surgery was consulted. Dr. Meyer, general surgeon , performed EGD and colonoscopy and reports findings of diffuse gastritis along the high lesser curvature of the stomach and polyps in descending and sigmoid colons. Dr. Meyer recommended repeat colonoscopy in 1-2 years. Patient has tolerated a regular diet s/p colonoscopy. For patient's borderline hypotension with orthostasis, he received volume resuscitation. Vitals improved. Labs were significant for hypokalemia and decline in Hgb. Regarding hypokalemia, this was repleted. Hgb decline was expected given hemodilution. Patient received Iron IV prior to discharge. New/updated medications at discharge: Protonix 20 mg po BID. Recommend patient see his PCP in 1-2 weeks with repeat CBC at that time. Recommend GI eval if patient were to experience recurrent rectal bleeding. Anticoagulation on hold until f/up with PCP. Patient is stable and ready for discharge home today. Patient and family are agreeable to this plan. - Patient Instructions Diet: Heart Healthy Diet, Usual Diet as Tolerated Activity: As Tolerated Driving: Do Not Drive Showering/Bathing: May Shower Notify Provider of: Fever, Increased Pain, Nausea and/or Vomiting - Discharge Plan Prescriptions/Med Rec: Pantoprazole [ProTONIX] 20 mg PO BID #60 tab.cr Home Medications: Home Meds Aspirin [Roseanne Chewable Aspirin] 81 mg PO DAILY 02/18/14 [History] Hydrochlorothiazide 25 mg PO DAILY 02/18/14 [History] Multivitamin/Iron/Folic Acid [Centrum Complete Multivit] 1 each PO DAILY [History] atorvaSTATin [Lipitor] 20 mg PO DAILY 02/18/14 [History] Diltiazem [Cardizem CD] 120 mg PO DAILY 01/08/18 [History] Tyner-3/DHA/Epa/Fish Oil [Tyner-3 Fish Oil 1,200 MG Sfgl] 3,000 mg PO DAILY [History] Metoprolol Tartrate 50 mg PO BID 01/09/18 [History] Pantoprazole [ProTONIX] 20 mg PO DAILY 02/16/18 [History] Pantoprazole [ProTONIX] 20 mg PO BID #60 tab.cr 02/17/18 [Rx] Patient Handouts: Gastritis, Adult, [id number], Colon Polyps, Anemia, Gastric Polyps, Gastrointestinal Bleeding, [id number] Referrals: Amish Melchor MD [Primary Care Provider] - 02/25/18 2:30 pm - Discharge Summary/Plan Comment DC Time >30 min.: Yes (45) - General Info Date of Service: 02/17/18 Admission Dx/Problem (Free Text: Admission Diagnosis/Problem Admission Diagnosis/Problem Gastrointestinal hemorrhage Subjective Update: In to see Arnaldo. He is resting comfortably in bed. He reports he is glad the colonoscopy is over. He states he feels great today. Denies dizziness, lightheadedness, chest pain, dyspnea. He is ready for discharge today. Functional Status: Reports: Pain Controlled, Tolerating Diet, Ambulating, Urinating - Review of Systems General: Reports: No Symptoms. Denies: Weakness, Fatigue HEENT: Reports: No Symptoms. Denies: Sinus Congestion, Sore Throat Pulmonary: Reports: No Symptoms. Denies: Shortness of Breath, Cough Cardiovascular: Reports: No Symptoms. Denies: Chest Pain, Palpitations, Edema Gastrointestinal: Reports: No Symptoms. Denies: Abdominal Pain, Constipation, Diarrhea, Nausea, Vomiting Genitourinary: Reports: No Symptoms. Denies: Dysuria, Frequency Musculoskeletal: Reports: No Symptoms. Denies: Joint Pain Skin: Reports: No Symptoms Neurological: Reports: No Symptoms. Denies: Confusion, Dizziness, Headache Psychiatric: Reports: No Symptoms. Denies: Confusion - Patient Data Vitals - Most Recent: Last Vital Signs Temp 98.5 F 02/17/18 12:00 Pulse 71 02/17/18 12:00 Resp 20 02/17/18 12:00 BP 108/61 02/17/18 12:00 Pulse Ox 98 02/17/18 12:00 Orthostatic Blood Pressure [ 83/71 Standing] Orthostatic Blood Pressure [ 102/75 Sitting] Orthostatic Blood Pressure [ 108/65 Supine] Weight - Most Recent: 107.184 kg I&O - Last 24 hours: Intake & Output 02/16/18 02/17/18 02/17/18 22:59 06:59 14:59 Intake Total 1800 3000 300 Output Total 150 Balance 1650 3000 300 Lab Results - Last 24 hrs: Laboratory Results - last 24 hr 02/16/18 02/16/18 02/17/18 Range/Units 13:08 19:55 06:15 Hgb 8.4 L 8.9 L 8.0 L (13.7-17.5) gm/L Hct 26.5 L 28.1 L 25.5 L (40.1-51.0) % Sodium (136-145) mEq/L Potassium (3.5-5.1) mEq/L Chloride (98-107) mEq/L Carbon Dioxide (21-32) mEq/L Anion Gap (5-15) BUN (7-18) mg/dL Creatinine (0.7-1.3) mg/dL Est Cr Clr Drug Dosing mL/min Estimated GFR (MDRD) (>60) mL/min BUN/Creatinine Ratio (14-18) Glucose (80-115) mg/dL Calcium (8.5-10.1) mg/dL Magnesium (1.8-2.4) mg/dl C-Reactive Protein (<1.0) mg/dL 02/17/18 Range/Units 06:15 Hgb (13.7-17.5) gm/L Hct (40.1-51.0) % Sodium 145 (136-145) mEq/L Potassium 3.3 L (3.5-5.1) mEq/L Chloride 110 H (98-107) mEq/L Carbon Dioxide 27 (21-32) mEq/L Anion Gap 11.3 (5-15) BUN 15 (7-18) mg/dL Creatinine 0.9 (0.7-1.3) mg/dL Est Cr Clr Drug Dosing 77.46 mL/min Estimated GFR (MDRD) > 60 (>60) mL/min BUN/Creatinine Ratio 16.7 (14-18) Glucose 102 (80-115) mg/dL Calcium 8.3 L (8.5-10.1) mg/dL Magnesium 2.0 (1.8-2.4) mg/dl C-Reactive Protein < 0.2 (<1.0) mg/dL Med Orders - Current: Current Medications Acetaminophen (Tylenol) 650 mg PO Q4H PRN PRN Reason: Pain (Mild 1-3)/fever Hydrocodone Bitart/Acetaminophen ([place] 325-5 Mg) 1 tab PO Q4H PRN PRN Reason: Pain (moderate 4-6) Albuterol/Ipratropium (Duoneb 3.0-0.5 Mg/3 Ml) 3 ml NEB Q4H PRN PRN Reason: Shortness Of Breath/wheezing Cyanocobalamin (Vitamin B12) 1,000 mcg PO DAILY [facility] Diltiazem HCl (Cardizem Cd) 120 mg PO DAILY [facility] Last Admin: 02/17/18 08:59 Dose: 120 mg Hydralazine HCl (Apresoline) 20 mg IVPUSH Q4H PRN PRN Reason: Hypertension Hydrochlorothiazide (Hydrochlorothiazide) 25 mg PO DAILY [facility] Last Admin: 02/17/18 08:59 Dose: 25 mg Hydromorphone HCl (Dilaudid) 0.25 mg IVPUSH Q2H PRN PRN Reason: Pain (severe 7-10) Promethazine HCl 12.5 mg/ (Sodium Chloride) 50.5 mls @ 100 mls/hr IV Q6H PRN PRN Reason: Nausea/Vomiting Ferric Sodium Gluconate Complex 250 mg/ Sodium Chloride 120 mls @ 60 mls/hr IV ONETIME ONE Stop: 02/17/18 13:59 Last Admin: 02/17/18 11:58 Dose: 60 mls/hr Lorazepam (Ativan) 2 mg IVPUSH Q4H PRN PRN Reason: Seizures Lorazepam (Ativan) 0.5 mg IV Q6H PRN PRN Reason: Anxiety Metoprolol Tartrate (Lopressor) 5 mg IVPUSH Q4H PRN PRN Reason: Tachycardia Metoprolol Tartrate (Lopressor) 50 mg PO BID [facility] Last Admin: 02/17/18 09:00 Dose: Not Given Ondansetron HCl (Zofran) 4 mg IV Q6H PRN PRN Reason: Nausea/Vomiting Pantoprazole Sodium (Protonix) 20 mg PO DAILY [facility] Last Admin: 02/17/18 08:59 Dose: 20 mg Atorvastatin 20 Mg 0 each PO DAILY [facility] Last Admin: 02/17/18 09:01 Dose: Not Given Potassium Chloride (Pharmacy To Dose - Potassium Replacement) 1 dose .XX ASDIRECTED [facility] Potassium Chloride (Klor-Con M20) 40 meq PO ONETIME ONE Stop: 02/17/18 13:01 Discontinued Medications Fentanyl (Sublimaze) Confirm Administered Dose 100 mcg .ROUTE .STK-MED ONE Stop: 02/17/18 06:21 Folic Acid (Folic Acid) 1 mg PO ONETIME ONE Stop: 02/17/18 09:43 Last Admin: 02/17/18 10:31 Dose: 1 mg Sodium Chloride (Normal Saline) 1,000 mls @ 250 mls/hr IV ASDIRECTED [facility] Last Admin: 02/16/18 07:41 Dose: 250 mls/hr Sodium Chloride (Normal Saline) 1,000 mls @ 500 mls/hr IV ASDIRECTED [facility] Sodium Chloride (Normal Saline) 1,000 mls @ 200 mls/hr IV ASDIRECTED [facility] Last Admin: 02/16/18 09:44 Dose: 200 mls/hr Lidocaine HCl (Xylocaine-Mpf 1%) Confirm Administered Dose 4 mls @ as directed .ROUTE .STK-MED ONE Stop: 02/17/18 06:21 Lactated Ringer's (Ringers, Lactated) Confirm Administered Dose 1,000 mls @ as directed .ROUTE .STK-MED ONE Stop: 02/17/18 08:07 Lidocaine HCl (Xylocaine 2% Jelly) 10 ml MUCMEM ONETIME ONE Stop: 02/16/18 08:19 Last Admin: 02/16/18 08:30 Dose: 10 ml Midazolam HCl (Versed 1 Mg/Ml) Confirm Administered Dose 2 mg .ROUTE .STK-MED ONE Stop: 02/17/18 06:21 Polyethylene Glycol/Electrolytes (Golytely) 4,000 ml PO ONETIME ONE Stop: 02/16/18 15:05 Last Admin: 06/27/18 17:19 Dose: 4,000 ml Propofol (Diprivan 20 Ml) Confirm Administered Dose 200 mg .ROUTE .STK-MED ONE Stop: 02/17/18 06:21 Propofol (Diprivan 20 Ml) Confirm Administered Dose 200 mg .ROUTE .STK-MED ONE Stop: 02/17/18 06:22 - Exam Quality Assessment: Denies: Supplemental Oxygen General: Reports: Alert, Oriented, Cooperative, No Acute Distress HEENT: Reports: Pupils Equal, Pupils Reactive, EOMI, Mucous Membr. Moist/[place] Neck: Reports: Supple, Trachea Midline. Denies: Lymphadenopathy Lungs: Reports: Clear to Auscultation, Normal Respiratory Effort Cardiovascular: Reports: Regular Rate, Regular Rhythm, No Murmurs GI/Abdominal Exam: Normal Bowel Sounds, Soft, Non-Tender, No Distention, Other ( mild hyperresonance to percussion ) (Male) Exam: Deferred Rectal (Males) Exam: Deferred Back Exam: Reports: Normal Inspection, Full Range of Motion Extremities: Normal Inspection, Normal Range of Motion, Non-Tender, No Pedal Edema Skin: Reports: Warm, Dry, Intact Neurological: Reports: No New Focal Deficit, Strength Equal Bilateral, Cranial Nerves Intact (grossly) Psy/Mental Status: Reports: Alert, Normal Affect, Normal Mood <Nelly Davis T - Last Filed: 02/17/18 15:38> Discharge Summary - Discharge Diagnosis/Problem(s) (1) Anemia SNOMED Code(s): 418189984 ICD Code: D64.9 - ANEMIA, UNSPECIFIED Status: Acute Qualifiers: Anemia type: iron deficiency Iron deficiency anemia type: other iron deficiency Qualified Code(s): D50.8 - Other iron deficiency anemias (2) Multiple gastric polyps SNOMED Code(s): 02857880 ICD Code: K31.7 - POLYP OF STOMACH AND DUODENUM Status: Acute (3) Hypotension due to blood loss SNOMED Code(s): 47341026 ICD Code: I95.89 - OTHER HYPOTENSION Status: Resolved (4) Acute lower gastrointestinal bleeding SNOMED Code(s): 99184842 ICD Code: K92.2 - GASTROINTESTINAL HEMORRHAGE, UNSPECIFIED Status: Resolved Priority: Medium - Patient Summary/Data Consults: Consultations 02/16/18 11:03 Consult to Case Management [CONS] Routine Consult to Physician [CONS] Routine Hospital Course: The patient was seen and examined at bedside in concert with the PA student. The discharge assessment and plans were discussed and agreed upon with me. Patient was advised if he continues to have recurrent rectal bleed, he must see GI in [place] for further evaluation. Will defer plans to resume anticoagulant to his PCP on follow up appointment. - Discharge Summary/Plan Comment Discharge Summary/Plan Comment: Discharge to Home - Patient Data Vitals - Most Recent: Last Vital Signs Temp 36.9 C 02/17/18 12:00 Pulse 71 02/17/18 12:00 Resp 20 02/17/18 12:00 BP 108/61 02/17/18 12:00 Pulse Ox 98 02/17/18 12:00 Orthostatic Blood Pressure [ 83/71 Standing] Orthostatic Blood Pressure [ 102/75 Sitting] Orthostatic Blood Pressure [ 108/65 Supine] I&O - Last 24 hours: Intake & Output 02/17/18 02/17/18 02/17/18 06:59 14:59 22:59 Intake Total 3000 300 180 Balance 3000 300 180 Lab Results - Last 24 hrs: Laboratory Results - last 24 hr 02/16/18 02/17/18 02/17/18 Range/Units 19:55 06:15 06:15 Hgb 8.9 L 8.0 L (13.7-17.5) gm/L Hct 28.1 L 25.5 L (40.1-51.0) % Sodium 145 (136-145) mEq/L Potassium 3.3 L (3.5-5.1) mEq/L Chloride 110 H (98-107) mEq/L Carbon Dioxide 27 (21-32) mEq/L Anion Gap 11.3 (5-15) BUN 15 (7-18) mg/dL Creatinine 0.9 (0.7-1.3) mg/dL Est Cr Clr Drug Dosing 77.46 mL/min Estimated GFR (MDRD) > 60 (>60) mL/min BUN/Creatinine Ratio 16.7 (14-18) Glucose 102 (80-115) mg/dL Calcium 8.3 L (8.5-10.1) mg/dL Magnesium 2.0 (1.8-2.4) mg/dl C-Reactive Protein < 0.2 (<1.0) mg/dL 02/17/18 Range/Units 14:35 Hgb 8.2 L (13.7-17.5) gm/L Hct 26.0 L (40.1-51.0) % Sodium (136-145) mEq/L Potassium (3.5-5.1) mEq/L Chloride (98-107) mEq/L Carbon Dioxide (21-32) mEq/L Anion Gap (5-15) BUN (7-18) mg/dL Creatinine (0.7-1.3) mg/dL Est Cr Clr Drug Dosing mL/min Estimated GFR (MDRD) (>60) mL/min BUN/Creatinine Ratio (14-18) Glucose (80-115) mg/dL Calcium (8.5-10.1) mg/dL Magnesium (1.8-2.4) mg/dl C-Reactive Protein (<1.0) mg/dL Med Orders - Current: Current Medications Acetaminophen (Tylenol) 650 mg PO Q4H PRN PRN Reason: Pain (Mild 1-3)/fever Hydrocodone Bitart/Acetaminophen ([place] 325-5 Mg) 1 tab PO Q4H PRN PRN Reason: Pain (moderate 4-6) Albuterol/Ipratropium (Duoneb 3.0-0.5 Mg/3 Ml) 3 ml NEB Q4H PRN PRN Reason: Shortness Of Breath/wheezing Cyanocobalamin (Vitamin B12) 1,000 mcg PO DAILY [facility] Diltiazem HCl (Cardizem Cd) 120 mg PO DAILY [facility] Last Admin: 02/17/18 08:59 Dose: 120 mg Hydralazine HCl (Apresoline) 20 mg IVPUSH Q4H PRN PRN Reason: Hypertension Hydrochlorothiazide (Hydrochlorothiazide) 25 mg PO DAILY [facility] Last Admin: 02/17/18 08:59 Dose: 25 mg Hydromorphone HCl (Dilaudid) 0.25 mg IVPUSH Q2H PRN PRN Reason: Pain (severe 7-10) Promethazine HCl 12.5 mg/ (Sodium Chloride) 50.5 mls @ 100 mls/hr IV Q6H PRN PRN Reason: Nausea/Vomiting Lorazepam (Ativan) 2 mg IVPUSH Q4H PRN PRN Reason: Seizures Lorazepam (Ativan) 0.5 mg IV Q6H PRN PRN Reason: Anxiety Metoprolol Tartrate (Lopressor) 5 mg IVPUSH Q4H PRN PRN Reason: Tachycardia Metoprolol Tartrate (Lopressor) 50 mg PO BID [facility] Last Admin: 02/17/18 09:00 Dose: Not Given Ondansetron HCl (Zofran) 4 mg IV Q6H PRN PRN Reason: Nausea/Vomiting Pantoprazole Sodium (Protonix) 20 mg PO DAILY [facility] Last Admin: 02/17/18 08:59 Dose: 20 mg Atorvastatin 20 Mg 0 each PO DAILY [facility] Last Admin: 02/17/18 09:01 Dose: Not Given Potassium Chloride (Pharmacy To Dose - Potassium Replacement) 1 dose .XX ASDIRECTED [facility] Discontinued Medications Fentanyl (Sublimaze) Confirm Administered Dose 100 mcg .ROUTE .STK-MED ONE Stop: 02/17/18 06:21 Folic Acid (Folic Acid) 1 mg PO ONETIME ONE Stop: 02/17/18 09:43 Last Admin: 02/17/18 10:31 Dose: 1 mg Sodium Chloride (Normal Saline) 1,000 mls @ 250 mls/hr IV ASDIRECTED [facility] Last Admin: 02/16/18 07:41 Dose: 250 mls/hr Sodium Chloride (Normal Saline) 1,000 mls @ 500 mls/hr IV ASDIRECTED [facility] Sodium Chloride (Normal Saline) 1,000 mls @ 200 mls/hr IV ASDIRECTED [facility] Last Admin: 02/16/18 09:44 Dose: 200 mls/hr Lidocaine HCl (Xylocaine-Mpf 1%) Confirm Administered Dose 4 mls @ as directed .ROUTE .STK-MED ONE Stop: 02/17/18 06:21 Lactated Ringer's (Ringers, Lactated) Confirm Administered Dose 1,000 mls @ as directed .ROUTE .STK-MED ONE Stop: 02/17/18 08:07 Ferric Sodium Gluconate Complex 250 mg/ Sodium Chloride 120 mls @ 60 mls/hr IV ONETIME ONE Stop: 02/17/18 13:59 Last Admin: 02/17/18 11:58 Dose: 60 mls/hr Lidocaine HCl (Xylocaine 2% Jelly) 10 ml MUCMEM ONETIME ONE Stop: 02/16/18 08:19 Last Admin: 02/16/18 08:30 Dose: 10 ml Midazolam HCl (Versed 1 Mg/Ml) Confirm Administered Dose 2 mg .ROUTE .STK-MED ONE Stop: 02/17/18 06:21 Polyethylene Glycol/Electrolytes (Golytely) 4,000 ml PO ONETIME ONE Stop: 02/16/18 15:05 Last Admin: 02/16/18 17:19 Dose: 4,000 ml Potassium Chloride (Klor-Con M20) 40 meq PO ONETIME ONE Stop: 02/17/18 13:01 Last Admin: 02/17/18 13:13 Dose: 40 meq Propofol (Diprivan 20 Ml) Confirm Administered Dose 200 mg .ROUTE .STK-MED ONE Stop: 02/17/18 06:21 Propofol (Diprivan 20 Ml) Confirm Administered Dose 200 mg .ROUTE .STK-MED ONE Stop: 02/17/18 06:22
[2018-02-17] MEDS ORDERED: Potassium Chloride 20 MEQ Tab.ER PO ONE (13:00)
[2018-02-18] MEDS ORDERED: Cyanocobalamin (Vitamin B12) 1,000 MCG Tab PO SCH (09:00)
== END 2018-02-17 14:55 | disposition home or self-care (01) | DRG 378 ==
LOC: JD.ED 06:58 → JD.ICU 09:47
PROVIDERS: ADMIT Internal Medicine; ATTEND Internal Medicine
PROC: 0DJD8ZZ Inspection of Lower Intestinal Tract, Via Natural or Artificial Opening Endoscopic (ICD-10-PCS; principal; 2018-02-16)
PROC: 0DJ08ZZ Inspection of Upper Intestinal Tract, Via Natural or Artificial Opening Endoscopic (ICD-10-PCS; 2018-02-17)
PROC: 0DBN8ZZ Excision of Sigmoid Colon, Via Natural or Artificial Opening Endoscopic (ICD-10-PCS; 2018-02-17)
PROC: 0DBM8ZZ Excision of Descending Colon, Via Natural or Artificial Opening Endoscopic (ICD-10-PCS; 2018-02-17)
DX: K92.1 Melena (principal); R42 Dizziness and giddiness; R53.1 Weakness; I48.2 Chronic atrial fibrillation; K55.21 Angiodysplasia of colon with hemorrhage; D62 Acute posthemorrhagic anemia; G47.30 Sleep apnea, unspecified; I48.0 Paroxysmal atrial fibrillation; E78.00 Pure hypercholesterolemia, unspecified; I10 Essential (primary) hypertension; G89.29 Other chronic pain; K55.20 Angiodysplasia of colon without hemorrhage; M54.9 Dorsalgia, unspecified; M10.9 Gout, unspecified; D22.9 Melanocytic nevi, unspecified; E78.5 Hyperlipidemia, unspecified; G47.33 Obstructive sleep apnea (adult) (pediatric); I95.1 Orthostatic hypotension; E87.6 Hypokalemia; K63.5 Polyp of colon; K29.70 Gastritis, unspecified, without bleeding; D50.9 Iron deficiency anemia, unspecified; Z87.891 Personal history of nicotine dependence; Z66 Do not resuscitate; Z87.442 Personal history of urinary calculi; Z79.82 Long term (current) use of aspirin; Z79.899 Other long term (current) drug therapy; Z86.010 Personal history of colon polyps
CPT/HCPCS: 36415; 45300; 80053; 83735; 85007; 85027; 85610; 86850; 86900; 86901; 93005; 96360; 96361; 99285; J7040 ×2; 80048; 85014; 85018; 86140; A9270-GY; J2001; J2250; J2704; J2916; J3010; J7030; J7120

== ENCOUNTER 2019-02-01 20:47 | Inpatient (IN) | payer MEDICARE, BC ==
--- NOTE | 2019-02-01 21:02 | EDM.PDOC ---
ED HPI GENERAL MEDICAL PROBLEM - General Chief Complaint: Cardiovascular Problem Stated Complaint: A-FIB Time Seen by Provider: 02/01/19 21:02 Source of Information: Reports: Patient History Limitations: Reports: No Limitations - History of Present Illness INITIAL COMMENTS - FREE TEXT/NARRATIVE: 68-year-old male presents to the ED with acute onset of paroxysmal atrial fibrillation starting about 1900 hrs. tonight. He states he often has short runs of paroxysmal atrial fib sometimes lasting 345 minutes and then they dissipate. He has waited about 7 -8 hours at a time in the past. It is converted back to sinus rhythm in between. Patient is on Cardizem 120 mg CD preparation daily. He is also on metoprolol 50 mg twice a day. He is not on any anticoagulant other than aspirin. Tonight he has developed some upper sternal chest pain over the manubrium rating up into the bilateral aspect of his throat. This comes and goes but seems to be associated with elevated heart rate indicating this is angina. He recognized that he was back in atrial fibrillation because he developed significant diaphoresis after sitting in the easy chair after supper. Was mildly short of breath and lightheaded dizzy and had to have his support to walk into the hospital. He has tried the Valsalva maneuver and home with no relief of the atrial fibrillation. States the pulse is going so fast he can't count. Onset: Today Onset Date: 02/01/19 Onset Time: 19:05 Duration: Hour(s): Location: Reports: Neck (Pressure along both sides of his [place] in his neck.) , Chest (Aware of racing heart. Pressure in his upper anterior chest) Quality: Reports: Pressure, Same as Previous Episode Severity: Moderate Improves with: Reports: None Worsens with: Reports: None Context: Reports: Other (Spontaneous occurrence after supper tonight.). Denies : Activity, Exercise, Lifting, Sick Contact, Trauma Associated Symptoms: Reports: Chest Pain, Shortness of Breath, Weakness ( Difficulty walking because he is dizzy and lightheaded). 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) Throat Pain Score (Numeric/FACES): 4 Bilateral Lower Back Pain Score (Numeric/FACES): 3 Left Shoulder Pain Score (Numeric/FACES): 5 - Related Data Allergies Allergy/AdvReac Type Severity Reaction Status Date / Time No Known Allergies Allergy Verified 02/02/19 01:05 Home Meds: Home Meds Aspirin [Roseanne Chewable Aspirin] 81 mg PO DAILY 02/18/14 [History] Multivitamin/Iron/Folic Acid [Centrum Complete Multivit] 1 each PO DAILY [History] atorvaSTATin [Lipitor] 20 mg PO DAILY 02/18/14 [History] hydroCHLOROthiazide [Hydrochlorothiazide] 25 mg PO DAILY 02/18/14 [History] Diltiazem [Cardizem CD] 120 mg PO DAILY 01/08/18 [History] Mccurtain-3/DHA/Epa/Fish Oil [M[place]urtain-3 Fish Oil 1,200 MG Sfgl] 3,000 mg PO DAILY [History] Metoprolol Tartrate 50 mg PO BID 01/09/18 [History] Pantoprazole [ProTONIX] 20 mg PO DAILY 02/16/18 [History] Past Medical History HEENT History: Reports: Impaired Vision Other HEENT History: Eye glasses Cardiovascular History: Reports: Afib (Paroxysmal atrial fibrillation.), High Cholesterol, Hypertension, Other (See Below) Other Cardiovascular History: cardioverted Respiratory History: Reports: Sleep Apnea Gastrointestinal History: Reports: None Genitourinary History: Reports: Renal Calculus Musculoskeletal History: Reports: Back Pain, Chronic, Gout Dermatologic History: Reports: Cellulitis Other Dermatologic History: conerned for cancerous moles- doctor says they are okay - Infectious Disease History Infectious Disease History: Reports: Measles - Past Surgical History HEENT Surgical History: Reports: None Cardiovascular Surgical History: Reports: None Respiratory Surgical History: Reports: None GI Surgical History: Reports: Colonoscopy, EGD Male Surgical History: Reports: None Musculoskeletal Surgical History: Reports: None Dermatological Surgical History: Reports: None Social & Family History - Family History Family Medical History: Noncontributory - Tobacco Use Smoking Status *Q: Former Smoker Used Tobacco, but Quit: Yes Month/Year Tobacco Last Used: 1997 - Caffeine Use Caffeine Use: Reports: Coffee Other Caffeine Use: 10 Cups/Day Caffeine Use Comment: ` - Recreational Drug Use Recreational Drug Use: No - Living Situation & Occupation Living situation: Reports: Occupation: Retired ED ROS GENERAL - Review of Systems Review Of Systems: See Below Constitutional: Reports: Weakness, Fatigue. Denies: Fever, Chills, Malaise HEENT: Reports: Glasses (For reading) Respiratory: Reports: Shortness of Breath. Denies: Wheezing, Pleuritic Chest Pain, Cough Cardiovascular: Reports: Chest Pain (At present due to), Blood Pressure Problem ( fast heart rate chronic hypertension ), Dyspnea on Exertion, Palpitations. Denies: Edema (Sometimes), Lightheadedness, Orthopnea, Other Endocrine: Reports: Fatigue (Minimally from medication.) GI/Abdominal: Reports: Other (GERD with dyspepsia periodically. Well-controlled with his days on his proton pump inhibitor.) : Reports: Frequency, Other (Nocturia 2. Mild BPH.) Musculoskeletal: Reports: Joint Pain (Knees hips and neck at times) Skin: Reports: No Symptoms Neurological: Reports: Dizziness (Associated with his rapid heart rate), Difficulty Walking (Due to rapid heart rate making his legs feel weak) Psychiatric: Reports: No Symptoms Hematologic/Lymphatic: Reports: No Symptoms Immunologic: Reports: No Symptoms ED EXAM, GENERAL - Physical Exam Exam: See Below Exam Limited By: No Limitations General Appearance: Alert, WD/WN, Mild Distress, Other (Vital signs show heart rate of 152 but up to 200/m on the ECG. Pressure is 147/88. Sats are 95% on room air) Eye Exam: Bilateral Eye: Normal Inspection Throat/Mouth: Normal Inspection, Normal Lips, Normal Oropharynx Head: Atraumatic, Normocephalic Neck: Normal Inspection, Supple, Non-Tender, Full Range of Motion, Other (No JVD ). No: Carotid Bruit, Lymphadenopathy (L), Lymphadenopathy (R) Respiratory/Chest: Lungs Clear, Normal Breath Sounds (Mild tachypnea 24/m.), Chest Non-Tender, Respiratory Distress Cardiovascular: Irregularly Irregular (Monitor shows atrial fibrillation with a rate as high as 200/m at times.). No: Normal Peripheral Pulses, Regular Rate, Rhythm, No Edema Peripheral Pulses: 1+: Carotid (L), Carotid (R) (Pulses are weak and fast.), Posterior Tibial (L), Posterior Tibial (R), Dorsalis Pedis (L), Dorsalis Pedis ( R) GI/Abdominal: Normal Bowel Sounds, Soft, Non-Tender, No Organomegaly, No Abnormal Bruit, No Mass, Pelvis Stable (Male) Exam: No Hernia Back Exam: Normal Inspection, Full Range of Motion. No: CVA Tenderness (L), CVA Tenderness (R) Extremities: Normal Inspection, Normal Range of Motion, Non-Tender, No Pedal Edema, Normal Capillary Refill Neurological: Alert, Oriented, CN II-XII Intact, Normal Cognition Psychiatric: Normal Affect, Normal Mood Skin Exam: Warm, Dry, Intact, Normal Color, No Rash EKG INTERPRETATION EKG Date: 02/01/19 Time: 20:57 Rhythm: A-Fib (With a rate of 110-200/m) Rate (Beats/Min): 146 [place]: LAD-Left [place] Deviation (-62) P-Wave: Absent QRS: Other (Wide QRS complexes throughout. Cannot rule out old inferior wall myocardial infarction or old anteroseptal myocardial infarction. There is left ventricular hypertrophy with secondary repolarization pattern. Nonspecific intraventricular conduction delay) ST-T: Other (T-wave inversion in 1 and aVL) QT: Prolonged (Moderately prolonged) EKG Interpretation Comments: Abnormal ECG Course - Vital Signs Last Recorded V/S: Last Vital Signs Temp 36.1 C 02/02/19 04:00 Pulse 152 H 02/01/19 20:56 Resp 18 02/02/19 04:00 BP 102/75 02/02/19 05:00 Pulse Ox 94 L 02/02/19 04:00 - Orders/Labs/Meds Orders: Active Orders 24 hr Category Date Time Status Chest 1V Frontal [CR] Stat Exams 02/01/19 21:05 Taken Diltiazem 125 mg Med 02/01/19 23:00 Active Sodium Chloride 0.9% [Normal Saline] 100 ml IV ASDIRECTED EKG 12 Lead [EK] Stat Ther 02/01/19 21:03 Ordered Medication Orders Aspirin (Halfprin) 81 mg PO DAILY MARYCARMEN Diltiazem HCl (Cardizem Cd) 120 mg PO DAILY M[facility]CARMEN Diltiazem HCl 125 mg/ Sodium (Chloride) 125 mls @ 15 mls/hr IV ASDIRECTED MARYCARMEN Lactated Ringer's (Ringers, Lactated) 1,000 mls @ 100 mls/hr IV ASDIRECTED MARYCARMEN Last Admin: 02/02/19 00:33 Dose: 100 mls/hr Metoprolol Tartrate (Lopressor) 50 mg PO BID [facility] Non-Formulary Medication (Atorvastatin) 20 mg PO DAILY [facility] Pantoprazole Sodium (Protonix) 40 mg PO DAILY@0700 [facility] Labs: Laboratory Tests 02/01/19 02/01/19 02/01/19 Range/Units 21:00 21:00 21:00 WBC 9.47 H (4.23-9.07) K/mm3 RBC 5.16 (4.63-6.08) M/mm3 Hgb 16.9 D (13.7-17.5) gm/L Hct 49.2 (40.1-51.0) % MCV 95.3 H D (79.0-92.2) fl MCH 32.8 H (25.7-32.2) pg MCHC 34.3 (32.2-35.5) g/dl RDW Std Deviation 45.7 H (35.1-43.9) fL Plt Count 257 (163-337) K/mm3 MPV 9.1 L (9.4-12.3) fl Neutrophils % (Manual) 59 (40-60) % Band Neutrophils % 5 (0-10) % Lymphocytes % (Manual) 27 (20-40) % Atypical Lymphs % 0 % Monocytes % (Manual) 7 (2-10) % Eosinophils % (Manual) 2 (0.8-7.0) % Basophils % (Manual) 0 L (0.2-1.2) Platelet Estimate Adequate Plt Morphology Comment Normal RBC Morph Comment Normal Sodium 141 (136-145) mEq/L Potassium 3.5 (3.5-5.1) mEq/L Chloride 103 (98-107) mEq/L Carbon Dioxide 25 (21-32) mEq/L Anion Gap 16.5 H (5-15) BUN 16 (7-18) mg/dL Creatinine 1.2 (0.7-1.3) mg/dL Est Cr Clr Drug Dosing 55.42 mL/min Estimated GFR (MDRD) 60 (>60) mL/min BUN/Creatinine Ratio 13.3 L (14-18) Glucose 188 H (80-115) mg/dL Calcium 9.6 (8.5-10.1) mg/dL Magnesium 2.0 (1.8-2.4) mg/dl Total Bilirubin 0.7 (0.2-1.0) mg/dL AST 29 (15-37) U/L ALT 53 (16-63) U/L Alkaline Phosphatase 68 (46-116) U/L Troponin I < 0.017 (0.00-0.056) ng/mL C-Reactive Protein < 0.2 (<1.0) mg/dL NT-Pro-B Natriuret Pep 65 (0-125) pg/mL Total Protein 7.3 (6.4-8.2) g/dl Albumin 3.9 (3.4-5.0) g/dl Globulin 3.4 gm/dL Albumin/Globulin Ratio 1.2 (1-2) Meds: Medications Generic Name Dose Route Start Last Admin Trade Name Freq PRN Reason Stop Dose Admin Aspirin 81 mg 02/02/19 09:00 Halfprin PO DAILY [facility] Diltiazem HCl 120 mg 02/02/19 09:00 Cardizem Cd PO DAILY [facility] Diltiazem HCl 125 mg/ Sodium 125 mls @ 15 mls/hr 02/01/19 23:00 Chloride IV ASDIRECTED MARYCARMEN 15 MG/HR Lactated Ringer's 1,000 mls @ 100 mls/hr 02/01/19 23:45 02/02/19 00:33 Ringers, Lactated IV 100 mls/hr ASDIRECTED [facility] Administration Metoprolol Tartrate 50 mg 02/02/19 09:00 Lopressor PO BID [facility] Non-Formulary Medication 20 mg 02/02/19 09:00 Atorvastatin PO DAILY [facility] Pantoprazole Sodium 40 mg 02/02/19 07:00 Protonix PO DAILY@0700 [facility] Discontinued Medications Generic Name Dose Route Start Last Admin Trade Name Freq PRN Reason Stop Dose Admin Diltiazem HCl 10 mg 02/01/19 21:03 02/01/19 21:13 Cardizem IVPUSH 02/01/19 21:04 10 mg ONETIME ONE Administration Diltiazem HCl 10 mg 02/01/19 21:46 02/01/19 21:58 Cardizem IVPUSH 02/01/19 21:47 10 mg ONETIME ONE Administration Diltiazem HCl 125 mg/ Sodium 125 mls @ 10 mls/hr 02/01/19 21:15 02/01/19 21: 15 Chloride IV 10 mg/hr ASDIRECTED MARYCARMEN 10 mls/hr Administration 10 MG/HR Sodium Chloride 1,000 mls @ 100 mls/hr 02/01/19 21:15 02/01/19 21:13 Normal Saline IV 100 mls/hr ASDIRECTED MARYCARMEN Administration Sodium Chloride 1,000 mls @ 200 mls/hr 02/01/19 23:00 Normal Saline IV ASDIRECTED MARYCARMEN - Radiology Interpretation Free Text/Narrative:: 68-year-old male presents to the ED with paroxysmal atrial fibrillation with rapid ventricular rate of between 110-200/m. He states it came on suddenly after eating supper tonight about 1900 hrs. He has had intermittent problems with atrial fibrillation for several years. He is controlled with Cardizem 120 mg CD preparation daily and metoprolol 50 mg twice a day. He states he often has short bouts of atrial fibrillation maybe lasting 3-4 minutes. He has waited 7 or 8 hours in the past and it converts back to regular rhythm in between. Date it was more intense with associated intermittent manubrial chest pressure discomfort rating up into his bilateral neck beside the trachea bilaterally. Associated diaphoresis lightheadedness and difficulty walking due to weakness. He has been cardioverted once in the past .Currently on aspirin only. Nizoral any recent changes to any of his medications. Examination reveals him on a monitored to be in atrial fibrillation with rapid ventricular rate. Plan Cardizem 10 mg IV bolus and will start him on 10 mg IV drip. He did take Her dose of his Cardizem 120 mg CD preparation about an hour before coming into the ED. He should be somewhat sensitive Cardizem as he is also on metoprolol 50 mg twice a day. Routine labs and ECG and chest x-ray to be done to include cardiac markers as clinically he is experiencing angina particularly when the heart rate seems to go above 1 35/m. - Re-Assessments/Exams Free Text/Narrative Re-Assessment/Exam: 02/01/19 21:47 Remains in atrial fibrillation at 134 per minute. BP is 106/88. Will repeat Cardizem 10 mg IV bolus. 02/01/19 22:11 Labs reveal a white count of 9.47 with 59% neutrophils and 5% band cells. Hemoglobin is 16.9 with hematocrit of 49.2 suggesting some degree of hemoconcentration. MCV is mildly elevated at 95.3. Platelet count is 257, 000. Sodium is 141 with a potassium of 3.5. Chloride is 103 with a bicarbonate of 25. Anion gap is elevated at 16.5. BUN is 16 with a creatinine of 1.2. GFR is greater than 60. Glucose is 188. Calcium is 9.6. Magnesium is 2.0. Liver function is normal. Troponin I is less than 0.017. C-reactive protein is less than 0.2. BNP is 65. Chest x-ray reveals marked cardiomegaly. No pleural effusions. No obvious diffuse vascular congestion pattern. Aorta does appear to be slightly tortuous. 02/01/19 22:44 patient is still experiencing intermittent bouts of upper manubrial central chest pain rating up into his throat bilaterally. This is usually when the heart rate is in the 130s. This suggests that this is angina. Still remains irregular anywhere from 92 to 138/min. Blood pressure however is 92/68. BNP is only 65 and therefore he can tolerate further IV fluids and I will increase his normal saline to 200 mils per hour to bring up his blood pressure. I will increase his Cardizem drip to 15 mg/h. Case discussed with on- call hospice Dr. Julien and he will admit the patient to the intensive care unit. The patient is always converted back to sinus rhythm in the past usually over a period of 8 hours or more. Hopefully he will convert overnight. Repeat cardiac markers will be done about 0100 hrs. this morning to make sure he has not suffered a mild stress heart attack from elevated heart rate Departure - Departure Time of Disposition: 00:00 Disposition: Admitted As Inpatient 64 Condition: Fair Clinical Impression: Paroxysmal atrial fibrillation with rapid ventricular response Hypertensive heart disease Qualifiers: Heart failure presence: without heart failure Qualified Code(s): I11.9 - Hypertensive heart disease without heart failure - My Orders Last 24 Hours: My Active Orders 02/01/19 21:03 EKG 12 Lead [EK] Stat 02/01/19 21:05 Chest 1V Frontal [CR] Stat 02/01/19 23:00 Diltiazem 125 mg Sodium Chloride 0.9% [Normal Saline] 100 ml IV ASDIRECTED - Assessment/Plan Last 24 Hours: My Active Orders 02/01/19 21:03 EKG 12 Lead [EK] Stat 02/01/19 21:05 Chest 1V Frontal [CR] Stat 02/01/19 23:00 Diltiazem 125 mg Sodium Chloride 0.9% [Normal Saline] 100 ml IV ASDIRECTED
[2019-02-01] MEDS ORDERED: Diltiazem 50 MG/10 ML SDV IVPUSH ONE ×2 (21:03→21:46)
[2019-02-01] MEDS ORDERED: Diltiazem 125 MG in Sodium Chloride 0.9% 100 ML IV SCH ×2 (21:15→23:00)
[2019-02-01] MEDS ORDERED: Sodium Chloride 0.9% 1,000 ML IV SCH ×2 (21:15→23:00)
[2019-02-01] MEDS ORDERED: Lactated Ringers 1,000 ML IV SCH (23:45)
--- NOTE | 2019-02-01 23:54 | PCM.HP ---
H&P History of Present Illness - General Date of Service: 02/01/19 Admit Problem/Dx: Admission Diagnosis/Problem Admission Diagnosis/Problem Atrial fibrillation Source of Information: Patient, Provider - History of Present Illness Initial Comments - Free Text/Narative: 68-year-old male with history of paroxysmal atrial fibrillation presented to the emergency room at 1900 hrs. secondary to palpitations, shortness of breath, and chest pain. Patient states he goes in and out of atrial fibrillation regularly, but usually can convert on his own as an outpatient. First time he went into atrial fibrillation that did cardiovert him several years ago. He has been hospitalized in the past for his rapid atrial fibrillation. Patient now states he has a mild headache from the diltiazem drip. Patient was given several boluses of diltiazem in the emergency room and placed on a drip to control his rate. At time of admission his pulse was in the upper 90s lower 100s. In the emergency room troponin was negative and BNP was negative at 55. Throat Pain Score (Numeric/FACES): 4 Bilateral Lower Back Pain Score (Numeric/FACES): 3 Left Shoulder Pain Score (Numeric/FACES): 5 - Related Data Allergies/Adverse Reactions: Allergies Allergy/AdvReac Type Severity Reaction Status Date / Time No Known Allergies Allergy Verified 02/02/19 01:05 Home Medications: Home Meds Aspirin [Roseanne Chewable Aspirin] 81 mg PO DAILY 02/18/14 [History] Multivitamin/Iron/Folic Acid [Centrum Complete Multivit] 1 each PO DAILY [History] atorvaSTATin [Lipitor] 20 mg PO DAILY 02/18/14 [History] hydroCHLOROthiazide [Hydrochlorothiazide] 25 mg PO DAILY 02/18/14 [History] Diltiazem [Cardizem CD] 120 mg PO DAILY 01/08/18 [History] Wink-3/DHA/Epa/Fish Oil [Wink-3 Fish Oil 1,200 MG Sfgl] 3,000 mg PO DAILY [History] Metoprolol Tartrate 50 mg PO BID 01/09/18 [History] Pantoprazole [ProTONIX] 20 mg PO DAILY 02/16/18 [History] Past Medical History HEENT History: Reports: Impaired Vision Other HEENT History: Eye glasses Cardiovascular History: Reports: Afib, High Cholesterol, Hypertension, Other ( See Below) Other Cardiovascular History: cardioverted Respiratory History: Reports: Sleep Apnea Gastrointestinal History: Reports: None Genitourinary History: Reports: Renal Calculus Musculoskeletal History: Reports: Back Pain, Chronic, Gout Dermatologic History: Reports: Cellulitis Other Dermatologic History: conerned for cancerous moles- doctor says they are okay - Infectious Disease History Infectious Disease History: Reports: Measles - Past Surgical History HEENT Surgical History: Reports: None Cardiovascular Surgical History: Reports: None Respiratory Surgical History: Reports: None GI Surgical History: Reports: Colonoscopy, EGD Male Surgical History: Reports: None Musculoskeletal Surgical History: Reports: None Dermatological Surgical History: Reports: None Social & Family History - Family History Family Medical History: Noncontributory - Tobacco Use Smoking Status *Q: Former Smoker Used Tobacco, but Quit: Yes Month/Year Tobacco Last Used: 1997 - Caffeine Use Caffeine Use: Reports: Coffee Other Caffeine Use: 10 Cups/Day Caffeine Use Comment: ` - Recreational Drug Use Recreational Drug Use: No - Living Situation & Occupation Living situation: Reports: Occupation: Retired H&P Review of Systems - Review of Systems: Review Of Systems: ROS reveals no pertinent complaints other than HPI. Exam - Exam Exam: See Below - Vital Signs Vital Signs: Last Vital Signs Temp 98.7 F 02/01/19 20:56 Pulse 152 H 02/01/19 20:56 Resp 23 H 02/01/19 20:56 BP 147/88 H 02/01/19 20:56 Pulse Ox 95 02/01/19 20:56 Weight: 235 lb - Exam General: Alert, Oriented HEENT: Conjunctiva Clear, Mucosa Moist & [place], Pupils Equal Neck: Supple, Trachea Midline Cardiovascular: Irregular Rhythm, Tachycardia GI/Abdominal Exam: Normal Bowel Sounds, Soft, Non-Tender, No Organomegaly, No Distention Skin: Warm, Dry, Intact Neuro Extensive - Mental Status: Alert, Oriented x3, Normal Mood/Affect Neuro Extensive - Motor, Sensory, Reflexes: CN II-XII Intact Psychiatric: Alert, Normal Affect, Normal Mood - Patient Data Lab Results Last 24 hrs: Laboratory Results - last 24 hr 02/01/19 02/01/19 02/01/19 Range/Units 21:00 21:00 21:00 WBC 9.47 H (4.23-9.07) K/mm3 RBC 5.16 (4.63-6.08) M/mm3 Hgb 16.9 D (13.7-17.5) gm/L Hct 49.2 (40.1-51.0) % MCV 95.3 H D (79.0-92.2) fl MCH 32.8 H (25.7-32.2) pg MCHC 34.3 (32.2-35.5) g/dl RDW Std Deviation 45.7 H (35.1-43.9) fL Plt Count 257 (163-337) K/mm3 MPV 9.1 L (9.4-12.3) fl Neutrophils % (Manual) 59 (40-60) % Band Neutrophils % 5 (0-10) % Lymphocytes % (Manual) 27 (20-40) % Atypical Lymphs % 0 % Monocytes % (Manual) 7 (2-10) % Eosinophils % (Manual) 2 (0.8-7.0) % Basophils % (Manual) 0 L (0.2-1.2) Platelet Estimate Adequate Plt Morphology Comment Normal RBC Morph Comment Normal Sodium 141 (136-145) mEq/L Potassium 3.5 (3.5-5.1) mEq/L Chloride 103 (98-107) mEq/L Carbon Dioxide 25 (21-32) mEq/L Anion Gap 16.5 H (5-15) BUN 16 (7-18) mg/dL Creatinine 1.2 (0.7-1.3) mg/dL Est Cr Clr Drug Dosing 55.42 mL/min Estimated GFR (MDRD) 60 (>60) mL/min BUN/Creatinine Ratio 13.3 L (14-18) Glucose 188 H (80-115) mg/dL Calcium 9.6 (8.5-10.1) mg/dL Magnesium 2.0 (1.8-2.4) mg/dl Total Bilirubin 0.7 (0.2-1.0) mg/dL AST 29 (15-37) U/L ALT 53 (16-63) U/L Alkaline Phosphatase 68 (46-116) U/L Troponin I < 0.017 (0.00-0.056) ng/mL C-Reactive Protein < 0.2 (<1.0) mg/dL NT-Pro-B Natriuret Pep 65 (0-125) pg/mL Total Protein 7.3 (6.4-8.2) g/dl Albumin 3.9 (3.4-5.0) g/dl Globulin 3.4 gm/dL Albumin/Globulin Ratio 1.2 (1-2) Result Diagrams: 02/02/19 04:15 02/02/19 04:15 - Problem List (1) Atrial fibrillation with RVR SNOMED Code(s): 749150375417405 ICD Code: I48.91 - UNSPECIFIED ATRIAL FIBRILLATION Status: Acute Current Visit: No Problem List Initiated/Reviewed/Updated: Yes Orders Last 24hrs: Active Orders 24 hr Category Date Time Status Patient Status [ADT] Routine ADT 02/01/19 23:28 Active Chest 1V Frontal [CR] Stat Exams 02/01/19 21:05 Taken CKMB [CHEM] Stat Lab 02/02/19 01:00 Ordered TROPONIN I [CHEM] Stat Lab 02/02/19 01:00 Ordered Diltiazem 125 mg Med 02/01/19 23:00 Active Sodium Chloride 0.9% [Normal Saline] 100 ml IV ASDIRECTED Sodium Chloride 0.9% [Normal Saline] 1,000 ml Med 02/01/19 23:00 Active IV ASDIRECTED EKG 12 Lead [EK] Stat Ther 02/01/19 21:03 Ordered Medication Orders Diltiazem HCl 125 mg/ Sodium (Chloride) 125 mls @ 15 mls/hr IV ASDIRECTED [facility] Sodium Chloride (Normal Saline) 1,000 mls @ 200 mls/hr IV ASDIRECTED MARYCARMEN Assessment/Plan Comment:: Paroxysmal atrial fibrillation with rapid ventricular response * Admit patient to the ICU on a Cardizem drip * When patient's rate is under control and blood pressure is stable we will restart home meds. * IV fluids to maintain MAP greater than 65 * Repeat lites the morning Hypertensive heart disease * Restart antihypertensives when he is rate controlled or converts VT prophylaxis: Patient is not on an anticoagulant for his atrial fibrillation. He gives a history of significant GI and urological bleed when he was placed on Xarelto. Patient is refusing any chemoprophylaxis. We'll place SCDs at this time.
[2019-02-02] MEDS: Pantoprazole 40 MG Tab.CR PO SCH (06:32)
--- NOTE | 2019-02-02 08:30 | CR ---
Chest: Frontal view of the chest was obtained. Comparison: Prior chest x-ray of 01/08/18. Heart size appears slightly enlarged. Tortuous thoracic aorta is seen. Lungs are clear. Bony structures are grossly intact. Impression: 1. Nothing acute is seen on frontal chest x-ray. Diagnostic code #2
[2019-02-02] MEDS ORDERED: Simvastatin 20 MG Tab PO SCH (09:00)
[2019-02-02] MEDS: Potassium Chloride 20 MEQ Tab.ER PO SCH ×2 (10:16→20:55)
[2019-02-02] MEDS: Aspirin 81 MG Tab.EC PO SCH (10:16)
[2019-02-02] MEDS: Diltiazem 120 MG Cap.CD PO SCH (13:07)
[2019-02-02] MEDS: Metoprolol Tartrate 50 MG Tab PO SCH ×2 (13:08→20:55)
--- NOTE | 2019-02-02 13:10 | PCM.PN ---
- General Info Date of Service: 02/02/19 Admission Dx/Problem (Free Text): Admission Diagnosis/Problem Admission Diagnosis/Problem Atrial fibrillation Subjective Update: Patient's blood pressure Was stable overnight. He converted to sinus rhythm at 519 this morning. Patient has had his Cardizem drip stopped and he is maintained in normal sinus rhythm with his heart rate in the 50s to 60s. He denies any chest pain. This morning he did have some left shoulder pain, but it appears that was related to musculoskeletal issues not cardiac issues. - Review of Systems General: Reports: No Symptoms HEENT: Reports: No Symptoms Pulmonary: Reports: No Symptoms Cardiovascular: Reports: No Symptoms Gastrointestinal: Reports: No Symptoms - Patient Data Vitals - Most Recent: Last Vital Signs Temp 97.6 F 02/02/19 12:00 Pulse 152 H 02/01/19 20:56 Resp 18 02/02/19 12:00 BP 120/92 H 02/02/19 12:00 Pulse Ox 97 02/02/19 12:00 Weight - Most Recent: 235 lb I&O - Last 24 Hours: Intake & Output 02/01/19 02/02/19 02/02/19 22:59 06:59 14:59 Intake Total 547 681 Output Total 325 Balance 222 681 Lab Results Last 24 Hours: Laboratory Results - last 24 hr 02/01/19 02/01/19 02/01/19 Range/Units 21:00 21:00 21:00 WBC 9.47 H (4.23-9.07) K/mm3 RBC 5.16 (4.63-6.08) M/mm3 Hgb 16.9 D (13.7-17.5) gm/L Hct 49.2 (40.1-51.0) % MCV 95.3 H D (79.0-92.2) fl MCH 32.8 H (25.7-32.2) pg MCHC 34.3 (32.2-35.5) g/dl RDW Std Deviation 45.7 H (35.1-43.9) fL Plt Count 257 (163-337) K/mm3 MPV 9.1 L (9.4-12.3) fl Neut % (Auto) (34.0-67.9) % Lymph % (Auto) (21.8-53.1) % [place] % (Auto) (5.3-12.2) % Eos % (Auto) (0.8-7.0) Baso % (Auto) (0.1-1.2) % Neut # (Auto) (1.78-5.38) K/mm3 Lymph # (Auto) (1.32-3.57) K/mm3 [place] # (Auto) (0.30-0.82) K/mm3 Eos # (Auto) (0.04-0.54) K/mm3 Baso # (Auto) (0.01-0.08) K/mm3 Neutrophils % (Manual) 59 (40-60) % Band Neutrophils % 5 (0-10) % Lymphocytes % (Manual) 27 (20-40) % Atypical Lymphs % 0 % Monocytes % (Manual) 7 (2-10) % Eosinophils % (Manual) 2 (0.8-7.0) % Basophils % (Manual) 0 L (0.2-1.2) Platelet Estimate Adequate Plt Morphology Comment Normal RBC Morph Comment Normal Sodium 141 (136-145) mEq/L Potassium 3.5 (3.5-5.1) mEq/L Chloride 103 (98-107) mEq/L Carbon Dioxide 25 (21-32) mEq/L Anion Gap 16.5 H (5-15) BUN 16 (7-18) mg/dL Creatinine 1.2 (0.7-1.3) mg/dL Est Cr Clr Drug Dosing 55.42 mL/min Estimated GFR (MDRD) 60 (>60) mL/min BUN/Creatinine Ratio 13.3 L (14-18) Glucose 188 H (80-115) mg/dL Calcium 9.6 (8.5-10.1) mg/dL Phosphorus (2.6-4.7) mg/dL Magnesium 2.0 (1.8-2.4) mg/dl Total Bilirubin 0.7 (0.2-1.0) mg/dL AST 29 (15-37) U/L ALT 53 (16-63) U/L Alkaline Phosphatase 68 (46-116) U/L CK-MB (CK-2) (0-3.6) ng/ml Troponin I < 0.017 (0.00-0.056) ng/mL C-Reactive Protein < 0.2 (<1.0) mg/dL NT-Pro-B Natriuret Pep 65 (0-125) pg/mL Total Protein 7.3 (6.4-8.2) g/dl Albumin 3.9 (3.4-5.0) g/dl Globulin 3.4 gm/dL Albumin/Globulin Ratio 1.2 (1-2) Triglycerides (<150) mg/dL Cholesterol (<200) mg/dL LDL Cholesterol Direct (<100) mg/dL HDL Cholesterol (40-59) mg/dL TSH 3rd Generation (0.358-3.74) uIU/mL 02/02/19 02/02/19 02/02/19 Range/Units 01:00 04:15 04:15 WBC 8.44 (4.23-9.07) K/mm3 RBC 4.80 (4.63-6.08) M/mm3 Hgb 15.6 (13.7-17.5) gm/L Hct 46.3 (40.1-51.0) % MCV 96.5 H (79.0-92.2) fl MCH 32.5 H (25.7-32.2) pg MCHC 33.7 (32.2-35.5) g/dl RDW Std Deviation 46.1 H (35.1-43.9) fL Plt Count 228 (163-337) K/mm3 MPV 9.2 L (9.4-12.3) fl Neut % (Auto) 61.0 (34.0-67.9) % Lymph % (Auto) 25.1 (21.8-53.1) % [place] % (Auto) 11.6 (5.3-12.2) % Eos % (Auto) 1.7 (0.8-7.0) Baso % (Auto) 0.4 (0.1-1.2) % Neut # (Auto) 5.15 (1.78-5.38) K/mm3 Lymph # (Auto) 2.12 (1.32-3.57) K/mm3 [place] # (Auto) 0.98 H (0.30-0.82) K/mm3 Eos # (Auto) 0.14 (0.04-0.54) K/mm3 Baso # (Auto) 0.03 (0.01-0.08) K/mm3 Neutrophils % (Manual) (40-60) % Band Neutrophils % (0-10) % Lymphocytes % (Manual) (20-40) % Atypical Lymphs % % Monocytes % (Manual) (2-10) % Eosinophils % (Manual) (0.8-7.0) % Basophils % (Manual) (0.2-1.2) Platelet Estimate Plt Morphology Comment RBC Morph Comment Sodium 143 (136-145) mEq/L Potassium 3.1 L (3.5-5.1) mEq/L Chloride 106 (98-107) mEq/L Carbon Dioxide 26 (21-32) mEq/L Anion Gap 14.1 (5-15) BUN 16 (7-18) mg/dL Creatinine 1.1 (0.7-1.3) mg/dL Est Cr Clr Drug Dosing 60.45 mL/min Estimated GFR (MDRD) > 60 (>60) mL/min BUN/Creatinine Ratio 14.5 (14-18) Glucose 118 H (80-115) mg/dL Calcium 9.2 (8.5-10.1) mg/dL Phosphorus 4.0 (2.6-4.7) mg/dL Magnesium 2.0 (1.8-2.4) mg/dl Total Bilirubin 0.5 (0.2-1.0) mg/dL AST 22 (15-37) U/L ALT 42 (16-63) U/L Alkaline Phosphatase 50 (46-116) U/L CK-MB (CK-2) 1.5 (0-3.6) ng/ml Troponin I < 0.017 (0.00-0.056) ng/mL C-Reactive Protein < 0.2 (<1.0) mg/dL NT-Pro-B Natriuret Pep (0-125) pg/mL Total Protein 6.3 L (6.4-8.2) g/dl Albumin 3.2 L (3.4-5.0) g/dl Globulin 3.1 gm/dL Albumin/Globulin Ratio 1.0 (1-2) Triglycerides 199 H (<150) mg/dL Cholesterol 81 (<200) mg/dL LDL Cholesterol Direct 40 (<100) mg/dL HDL Cholesterol 21.0 L (40-59) mg/dL TSH 3rd Generation 3.710 (0.358-3.74) uIU/mL Med Orders - Current: Current Medications Aspirin (Halfprin) 81 mg PO DAILY [facility] Last Admin: 02/02/19 10:16 Dose: 81 mg Diltiazem HCl (Cardizem Cd) 120 mg PO DAILY [facility] Diltiazem HCl 125 mg/ Sodium (Chloride) 125 mls @ 15 mls/hr IV ASDIRECTED [facility] Metoprolol Tartrate (Lopressor) 50 mg PO BID [facility] Pantoprazole Sodium (Protonix) 40 mg PO DAILY@0700 [facility] Last Admin: 02/02/19 06:32 Dose: 40 mg Potassium Chloride (Klor-Con M20) 20 meq PO BID [facility] Stop: 02/02/19 21:01 Last Admin: 02/02/19 10:16 Dose: 20 meq Discontinued Medications Diltiazem HCl (Cardizem) 10 mg IVPUSH ONETIME ONE Stop: 02/01/19 21:04 Last Admin: 02/01/19 21:13 Dose: 10 mg Diltiazem HCl (Cardizem) 10 mg IVPUSH ONETIME ONE Stop: 02/01/19 21:47 Last Admin: 02/01/19 21:58 Dose: 10 mg Diltiazem HCl 125 mg/ Sodium (Chloride) 125 mls @ 10 mls/hr IV ASDIRECTED [facility] Last Infusion: 02/02/19 05:19 Dose: 0 mg/hr, 0 mls/hr Sodium Chloride (Normal Saline) 1,000 mls @ 100 mls/hr IV ASDIRECTED [facility] Last Admin: 02/01/19 21:13 Dose: 100 mls/hr Sodium Chloride (Normal Saline) 1,000 mls @ 200 mls/hr IV ASDIRECTED [facility] Lactated Ringer's (Ringers, Lactated) 1,000 mls @ 100 mls/hr IV ASDIRECTED [facility] Last Admin: 02/02/19 00:33 Dose: 100 mls/hr Simvastatin (Zocor) 20 mg PO DAILY [facility] - Exam General: Alert, Oriented HEENT: Pupils Equal, Pupils Reactive, Scleral Icterus Lungs: Clear to Auscultation, Normal Respiratory Effort Cardiovascular: Regular Rate, Regular Rhythm GI/Abdominal Exam: Normal Bowel Sounds, Soft, Non-Tender, No Distention Extremities: Normal Inspection, Normal Range of Motion, No Pedal Edema Skin: Warm, Dry, Intact Psy/Mental Status: Alert, Normal Affect, Normal Mood - Problem List & Annotations (1) Atrial fibrillation with RVR SNOMED Code(s): 839397144410110 Code(s): I48.91 - UNSPECIFIED ATRIAL FIBRILLATION Status: Acute Current Visit: No - Problem List Review Problem List Initiated/Reviewed/Updated: Yes - My Orders Last 24 Hours: My Active Orders 02/01/19 23:57 Oxygen Therapy [RC] PRN Up ad Nancy [RC] ASDIRECTED VTE/DVT Education [RC] PER UNIT ROUTINE Vital Signs [RC] Q4HR Resuscitation Status Routine 02/01/19 23:58 Antiembolic Devices [RC] PER UNIT ROUTINE Sequential Compression Device [OM.PC] Per Unit Routine 02/02/19 05:24 EKG 12 Lead [EKG Documentation Completion] [RC] STAT 02/02/19 07:00 Pantoprazole [ProTONIX] 40 mg PO DAILY@0700 02/02/19 09:00 Aspirin [Halfprin] 81 mg PO DAILY Diltiazem [Cardizem CD] 120 mg PO DAILY Metoprolol Tartrate [Lopressor] 50 mg PO BID Potassium Chloride [Klor-Con M20] 20 meq PO BID - Plan Plan:: Paroxysmal atrial fibrillation with rapid ventricular response * Plan to transfer patient to [facility] floor telemetry if he is out of V. fib with rapid ventricular response rest of the day. * Restart home meds starting with Cardizem CD 120 mg daily. Add back in metoprolol tonight if blood pressure and pulse are appropriate * DC IV fluids * Repeat electrolytes in the morning. Hypertensive heart disease * Restart antihypertensives when he is rate controlled or converts Hyperlipidemia/low HDL * Cholesterol 81, LDL 40, HDL 21, triglycerides 199 * Hold Zocor for now. 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 VT prophylaxis: Patient is not on an anticoagulant for his atrial fibrillation. He gives a history of significant GI and urological bleed when he was placed on Xarelto. Patient is refusing any chemoprophylaxis. We'll place SCDs at this time.
[2019-02-03] MEDS: Pantoprazole 40 MG Tab.CR PO SCH (06:33)
[2019-02-03 07:59] VITALS: BP 134/78
[2019-02-03] MEDS: Metoprolol Tartrate 50 MG Tab PO SCH (07:59)
[2019-02-03] MEDS: Aspirin 81 MG Tab.EC PO SCH (07:59)
[2019-02-03] MEDS: Diltiazem 120 MG Cap.CD PO SCH (07:59)
--- NOTE | 2019-02-03 09:35 | PCM.DCSUM1 ---
Discharge Summary - Hospital Course HPI Initial Comments: 68-year-old male with history of paroxysmal atrial fibrillation presented to the emergency room at 1900 hrs. secondary to palpitations, shortness of breath, and chest pain. Patient states he goes in and out of atrial fibrillation regularly, but usually can convert on his own as an outpatient. First time he went into atrial fibrillation that did cardiovert him several years ago. He has been hospitalized in the past for his rapid atrial fibrillation. Patient now states he has a mild headache from the diltiazem drip. Patient was given several boluses of diltiazem in the emergency room and placed on a drip to control his rate. At time of admission his pulse was in the upper 90s lower 100s. In the emergency room troponin was negative and BNP was negative at 55. 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 - Discharge Plan *PRESCRIPTION DRUG MONITORING PROGRAM REVIEWED*: Not Applicable *COPY OF PRESCRIPTION DRUG MONITORING REPORT IN PATIENT MARI: Not Applicable Home Medications: Home Meds Aspirin [Roseanne Chewable Aspirin] 81 mg PO DAILY 02/18/14 [History] Multivitamin/Iron/Folic Acid [Centrum Complete Multivit] 1 each PO DAILY [History] atorvaSTATin [Lipitor] 20 mg PO DAILY 02/18/14 [History] hydroCHLOROthiazide [Hydrochlorothiazide] 25 mg PO DAILY 02/18/14 [History] Diltiazem [Cardizem CD] 120 mg PO DAILY 01/08/18 [History] [place]-3/DHA/Epa/Fish Oil [[place]-3 Fish Oil 1,200 MG Sfgl] 3,000 mg PO DAILY [History] Metoprolol Tartrate 50 mg PO BID 01/09/18 [History] Pantoprazole [ProTONIX] 20 mg PO DAILY 02/16/18 [History] Oxygen Therapy Mode: Room Air Forms: ED Department Discharge Referrals: Amish Melchor MD [Primary Care Provider] - - Discharge Summary/Plan Comment DC Time >30 min.: Yes Discharge Summary/Plan Comment: Patient was discharged on his home medications. We did discuss in detail anticoagulation strategies. He at this time does not want to go on any new anticoagulant. Patient will discuss this with his nonfarm animal caretaker again. Follow up with his nonfarm animal caretaker in the next couple of weeks. - General Info Date of Service: 02/03/19 Admission Dx/Problem (Free Text: Admission Diagnosis/Problem Admission Diagnosis/Problem Atrial fibrillation Subjective Update: February 02, 2019 Patient's blood pressure Was stable overnight. He converted to sinus rhythm at 519 this morning. Patient has had his Cardizem drip stopped and he is maintained in normal sinus rhythm with his heart rate in the 50s to 60s. He denies any chest pain. This morning he did have some left shoulder pain, but it appears that was related to musculoskeletal issues not cardiac issues. February 03, 2019 Patient had an uneventful night. He stayed in normal sinus rhythm and has no chest pain. Vital signs are stable. Functional Status: Reports: Pain Controlled - Review of Systems General: Reports: No Symptoms HEENT: Reports: No Symptoms Pulmonary: Reports: No Symptoms. Denies: Shortness of Breath Cardiovascular: Reports: No Symptoms. Denies: Chest Pain Gastrointestinal: Reports: No Symptoms - Patient Data Vitals - Most Recent: Last Vital Signs Temp 97.8 F 02/03/19 07:58 Pulse 74 02/03/19 07:59 Resp 15 02/03/19 07:58 BP 134/78 02/03/19 07:59 Pulse Ox 100 02/03/19 07:58 Weight - Most Recent: 236 lb 3.2 oz I&O - Last 24 hours: Intake & Output 02/02/19 02/03/19 02/03/19 22:59 06:59 14:59 Intake Total 320 Balance 320 Med Orders - Current: Current Medications Aspirin (Halfprin) 81 mg PO DAILY [facility] Last Admin: 02/03/19 07:59 Dose: 81 mg Diltiazem HCl (Cardizem Cd) 120 mg PO DAILY [facility] Last Admin: 02/03/19 07:59 Dose: 120 mg Diltiazem HCl 125 mg/ Sodium (Chloride) 125 mls @ 15 mls/hr IV ASDIRECTED [facility] Metoprolol Tartrate (Lopressor) 50 mg PO BID [facility] Last Admin: 02/03/19 07:59 Dose: 50 mg Pantoprazole Sodium (Protonix) 40 mg PO DAILY@0700 [facility] Last Admin: 02/03/19 06:33 Dose: 40 mg Discontinued Medications Diltiazem HCl (Cardizem) 10 mg IVPUSH ONETIME ONE Stop: 02/01/19 21:04 Last Admin: 02/01/19 21:13 Dose: 10 mg Diltiazem HCl (Cardizem) 10 mg IVPUSH ONETIME ONE Stop: 02/01/19 21:47 Last Admin: 02/01/19 21:58 Dose: 10 mg Diltiazem HCl 125 mg/ Sodium (Chloride) 125 mls @ 10 mls/hr IV ASDIRECTED [facility] Last Infusion: 02/02/19 05:19 Dose: 0 mg/hr, 0 mls/hr Sodium Chloride (Normal Saline) 1,000 mls @ 100 mls/hr IV ASDIRECTED [facility] Last Admin: 02/01/19 21:13 Dose: 100 mls/hr Sodium Chloride (Normal Saline) 1,000 mls @ 200 mls/hr IV ASDIRECTED [facility] Lactated Ringer's (Ringers, Lactated) 1,000 mls @ 100 mls/hr IV ASDIRECTED [facility] Last Admin: 02/02/19 00:33 Dose: 100 mls/hr Potassium Chloride (Klor-Con M20) 20 meq PO BID [facility] Stop: 02/02/19 21:01 Last Admin: 02/02/19 20:55 Dose: 20 meq Simvastatin (Zocor) 20 mg PO DAILY [facility] Last Admin: 02/02/19 13:08 Dose: Not Given - Exam Quality Assessment: Denies: Supplemental Oxygen General: Reports: Alert, Oriented HEENT: Reports: Pupils Equal, Pupils Reactive Neck: Reports: Supple Lungs: Reports: Clear to Auscultation, Normal Respiratory Effort Cardiovascular: Reports: Regular Rate, Regular Rhythm GI/Abdominal Exam: Normal Bowel Sounds, Soft, Non-Tender, No Organomegaly, No Distention Extremities: Normal Inspection, Normal Range of Motion, Non-Tender, No Pedal Edema Skin: Reports: Warm, Dry, Intact
== END 2019-02-03 09:38 | disposition home or self-care (01) | DRG 310 ==
LOC: JD.ED 20:47 → JD.ICU 23:28
PROVIDERS: ADMIT Family Medicine; ATTEND Family Medicine
DX: I48.0 Paroxysmal atrial fibrillation (principal); R06.02 Shortness of breath; R07.9 Chest pain, unspecified; I11.9 Hypertensive heart disease without heart failure; H54.7 Unspecified visual loss; R42 Dizziness and giddiness; R53.1 Weakness; R26.2 Difficulty in walking, not elsewhere classified; E78.00 Pure hypercholesterolemia, unspecified; M54.9 Dorsalgia, unspecified; G47.30 Sleep apnea, unspecified; Z87.442 Personal history of urinary calculi; G89.29 Other chronic pain; Z87.891 Personal history of nicotine dependence; M10.9 Gout, unspecified; Z79.899 Other long term (current) drug therapy; R53.83 Other fatigue; R06.00 Dyspnea, unspecified; R00.2 Palpitations; K21.9 Gastro-esophageal reflux disease without esophagitis; M25.552 Pain in left hip; M25.551 Pain in right hip; M54.2 Cervicalgia; I20.9 Angina pectoris, unspecified; Z79.82 Long term (current) use of aspirin
CPT/HCPCS: 36415; 71045; 80053; 83735; 83880; 84484; 85007; 85027; 86140; 93005; 96365; 96366; 96376; 99285; J3490 ×3; J7030; J7040; 80061; 82553; 84100; 84443; 85025; 93010; A9270-GY; J7120

== ENCOUNTER 2021-04-17 10:23 | Day surgery (SDC) | payer MEDICARE, BC ==
[~2021-04-17 10:23] MED LIST: Cefuroxime 10 MG/ML SYRINGE EYELF SCH; Lidocaine 1% PF 2 ML SDV INJECT SCH; Pilocarpine 4% Ophth Soln 15 ML Bot EYELF SCH
[2021-04-17] MEDS: Polymyxin B/Trimethoprim 10 ML Bottle EYELF SCH ×3 (10:47→12:19)
[2021-04-17] MEDS: Brimonidine 0.2% Ophth Soln 5 ML Bottle EYELF SCH ×3 (10:52→12:19)
[2021-04-17] MEDS: Phenylephrine 2.5% Ophth Soln 2 ML Bot EYELF SCH ×5 (10:56→12:00)
[2021-04-17] MEDS: Tropicamide 1% Ophth Soln 15 ML Bottle EYELF SCH ×4 (11:01→11:35)
--- NOTE | 2021-04-17 11:15 | PCM.PREANE ---
Preanesthetic Assessment - Procedure Proposed Procedure: left eye cataract extraction with IOL - Anesthesia/Transfusion/Family Hx Anesthesia History: No Prior Anesthesia Family History of Anesthesia Reaction: No Transfusion History: No Prior Transfusion(s) - Review of Systems General: No Symptoms Pulmonary: No Symptoms Cardiovascular: No Symptoms Gastrointestinal: No Symptoms Neurological: No Symptoms Other: Reports: Easy Bleeding, Easy Bruising - Physical Assessment NPO Status Date: 04/16/21 NPO Status Time: 00:00 Height: 1.73 m Weight: 106.594 kg ASA Class: 3 Mental Status: Alert & Oriented x3 Airway Class: Mallampati = 1 Dentition: Reports: Normal Dentition, Partial Thyro-Mental Finger Breadths: 3 Mouth Opening Finger Breadths: 3 ROM/Head Extension: Full Lungs: Clear to Auscultation, Normal Respiratory Effort Cardiovascular: Regular Rate, Regular Rhythm - Allergies Allergies/Adverse Reactions: Allergies Allergy/AdvReac Type Severity Reaction Status Date / Time No Known Allergies Allergy Verified 04/16/21 11:50 - Blood Blood Available: No Product(s) Available: None - Anesthesia Plan Pre-Op Medication Ordered: Beta Sheri Beta Sheri: Metoprolol Med Last Dose Date: 04/17/21 Med Last Dose Time: 06:30 - Acknowledgements Anesthesia Type Planned: MAC Pt an Appropriate Candidate for the Planned Anesthesia: Yes Alternatives and Risks of Anesthesia Discussed w Pt/Guardian: Yes Pt/Guardian Understands and Agrees with Anesthesia Plan: Yes PreAnesthesia Questionnaire HEENT History: Reports: Impaired Vision Other HEENT History: Eye glasses Cardiovascular History: Reports: Afib, High Cholesterol, Hypertension, Other (See Below) Other Cardiovascular History: cardioverted Respiratory History: Reports: Sleep Apnea Gastrointestinal History: Reports: None Genitourinary History: Reports: Renal Calculus Musculoskeletal History: Reports: Back Pain, Chronic, Gout Dermatologic History: Reports: Cellulitis Other Dermatologic History: conerned for cancerous moles- doctor says they are okay - Infectious Disease History Infectious Disease History: Reports: Measles - Past Surgical History HEENT Surgical History: Reports: None Cardiovascular Surgical History: Reports: None Respiratory Surgical History: Reports: None GI Surgical History: Reports: Colonoscopy, EGD Male Surgical History: Reports: None Musculoskeletal Surgical History: Reports: None Dermatological Surgical History: Reports: None - SUBSTANCE USE Tobacco Use Status *Q: Former Tobacco User Tobacco Use Within Last Twelve Months: No Second Hand Smoke Exposure: No Days Per Week of Alcohol Use: 0 Number of Drinks Per Day: 0 Total Drinks Per Week: 0 Recreational Drug Use History: No - HOME MEDS Home Medications: Home Meds Aspirin [Roseanne Chewable Aspirin] 81 mg PO DAILY 02/18/14 [History] Multivitamin/Iron/Folic Acid [Centrum Complete Multivit] 1 each PO DAILY 02/18/14 [History] atorvaSTATin [Lipitor] 10 mg PO DAILY 02/18/14 [History] Diltiazem [Cardizem CD] 240 mg PO DAILY 01/08/18 [History] [place]-3/DHA/Epa/Fish Oil [[place]-3 Fish Oil 1,200 MG Sfgl] 3,000 mg PO DAILY 12/21 05/10 [History] Metoprolol Tartrate 50 mg PO BID 01/09/18 [History] Cyclobenzaprine [Flexeril] 10 mg PO DAILY 04/16/21 [History] Tamsulosin HCl [Flomax] 0.4 mg PO DAILY 04/16/21 [History] allopurinoL [Zyloprim] 100 mg PO DAILY 04/16/21 [History] - CURRENT (IN HOUSE) MEDS Current Meds: Current Medications Brimonidine Tartrate (Brimonidine 0.2% Ophth Soln 5 Ml Bottle) 0 ml EYELF ASDIRECTED [facility] Stop: 04/17/21 18:00 Last Admin: 04/17/21 10:52 Dose: 1 drop Documented by: Cefuroxime Sodium (Cefuroxime 10 Mg/Ml Syringe) 0 mg EYELF ASDIRECTED [facility] Stop: 04/17/21 18:00 Lidocaine HCl (Lidocaine 1% Pf 2 Ml Sdv) 0 ml INJECT ASDIRECTED [facility] Stop: 04/17/21 18:00 Phenylephrine HCl (Phenylephrine 2.5% Ophth Soln 2 Ml Bot) 0 ml EYELF ASDIRECTED [facility] Stop: 04/17/21 18:00 Last Admin: 04/17/21 11:05 Dose: 1 drop Documented by: Pilocarpine HCl (Pilocarpine 4% Ophth Soln 15 Ml Bot) 0 ml EYELF ASDIRECTED [facility] Stop: 04/17/21 18:00 Polymyxin/Trimethoprim Sulfate (Polymyxin B/Trimethoprim 10 Ml Bottle) 0 ml EYELF ASDIRECTED [facility] Stop: 04/17/21 18:00 Last Admin: 04/17/21 10:47 Dose: 1 drop Documented by: Tetracaine HCl (Tetracaine Hcl/Pf 0.5% 4 Ml Bottle) 0 ml EYEBOTH ASDIRECTED [facility] Stop: 04/17/21 18:00 Tropicamide (Tropicamide 1% Ophth Soln 15 Ml Bottle) 0 ml EYELF ASDIRECTED [facility] Stop: 04/17/21 18:00 Last Admin: 04/17/21 11:09 Dose: 1 drop Documented by:
[2021-04-17] MEDS: Tetracaine HCl/PF 0.5% 4 ML Bottle EYEBOTH SCH ×3 (11:38→12:04)
--- NOTE | 2021-04-17 12:22 | PCM48HPAN ---
Post Anesthesia Note - EVALUATION WITHIN 48HRS OF ANESTHETIC Vital Signs in Normal Range: Yes Patient Participated in Evaluation: Yes Respiratory Function Stable: Yes Airway Patent: Yes Cardiovascular Function Stable: Yes Hydration Status Stable: Yes Pain Control Satisfactory: Yes Nausea and Vomiting Control Satisfactory: Yes Mental Status Recovered: Yes - COMMENTS/OBSERVATIONS Free Text/Narrative:: 1221: 137/79 93% 53 18 98.0
[2021-04-17 12:37] VITALS: BP 128/70; PULSE 52
== END 2021-04-17 12:30 | disposition home or self-care (01) ==
LOC: JD.SDS 10:23
PROVIDERS: ATTEND Ophthalmology
DX: H25.813 Combined forms of age-related cataract, bilateral (principal); H57.813 Brow ptosis, bilateral; H21.81 Floppy iris syndrome; H21.42 Pupillary membranes, left eye; E78.00 Pure hypercholesterolemia, unspecified; I10 Essential (primary) hypertension; M81.0 Age-related osteoporosis without current pathological fracture; Z87.891 Personal history of nicotine dependence; Z79.82 Long term (current) use of aspirin; Z79.899 Other long term (current) drug therapy
CPT/HCPCS: 66982; J0697; V2632

== ENCOUNTER 2021-06-12 08:36 | Day surgery (SDC) | payer MEDICARE, BC ==
--- NOTE | 2021-06-12 09:32 | PCM.PREANE ---
Preanesthetic Assessment - Procedure Proposed Procedure: right eye CE with IOL - Anesthesia/Transfusion/Family Hx Anesthesia History: No Prior Anesthesia Family History of Anesthesia Reaction: No Transfusion History: No Prior Transfusion(s) - Review of Systems General: No Symptoms Pulmonary: No Symptoms Cardiovascular: Other (AFIB, HTN, HLD, aortic arch and abdlonimal aneurysm, ) Neurological: No Symptoms Other: Reports: None - Physical Assessment NPO Status Date: 06/11/21 NPO Status Time: 19:00 Height: 1.73 m Weight: 107.501 kg ASA Class: 3 Mental Status: Alert & Oriented x3 Airway Class: Mallampati = 1 Dentition: Reports: Dentures (upper and lower ) Thyro-Mental Finger Breadths: 3 Mouth Opening Finger Breadths: 3 ROM/Head Extension: Full Lungs: Clear to Auscultation, Normal Respiratory Effort Cardiovascular: Regular Rate, Regular Rhythm - Allergies Allergies/Adverse Reactions: Allergies Allergy/AdvReac Type Severity Reaction Status Date / Time No Known Allergies Allergy Verified 06/11/21 11:43 - Blood Blood Available: No Product(s) Available: None - Anesthesia Plan Pre-Op Medication Ordered: None Beta Sheri: Metoprolol Med Last Dose Date: 06/12/21 Med Last Dose Time: 06:30 - Acknowledgements Anesthesia Type Planned: MAC Pt an Appropriate Candidate for the Planned Anesthesia: Yes Alternatives and Risks of Anesthesia Discussed w Pt/Guardian: Yes Pt/Guardian Understands and Agrees with Anesthesia Plan: Yes PreAnesthesia Questionnaire HEENT History: Reports: Impaired Vision Other HEENT History: Eye glasses Cardiovascular History: Reports: Afib, High Cholesterol, Hypertension Other Cardiovascular History: cardioverted Respiratory History: Reports: Sleep Apnea Gastrointestinal History: Reports: None Genitourinary History: Reports: Renal Calculus Musculoskeletal History: Reports: Back Pain, Chronic, Gout Dermatologic History: Reports: Cellulitis Other Dermatologic History: conerned for cancerous moles- doctor says they are okay - Infectious Disease History Infectious Disease History: Reports: Measles - Past Surgical History HEENT Surgical History: Reports: None Cardiovascular Surgical History: Reports: None Respiratory Surgical History: Reports: None GI Surgical History: Reports: Colonoscopy, EGD Male Surgical History: Reports: None Neurological Surgical History: Reports: Other (See Below) (spinal stenosis surgery) Musculoskeletal Surgical History: Reports: None Dermatological Surgical History: Reports: None - HOME MEDS Home Medications: Home Meds Aspirin [Roseanne Chewable Aspirin] 81 mg PO DAILY 02/18/14 [History] Multivitamin/Iron/Folic Acid [Centrum Complete Multivit] 1 each PO DAILY 02/18/14 [History] atorvaSTATin [Lipitor] 10 mg PO DAILY 02/18/14 [History] Diltiazem [Cardizem CD] 240 mg PO DAILY 01/08/18 [History] [place]-3/DHA/Epa/Fish Oil [[place]-3 Fish Oil 1,200 MG Sfgl] 3,000 mg PO DAILY 01/08/18 [History] Metoprolol Tartrate 50 mg PO BID 01/09/18 [History] Cyclobenzaprine [Flexeril] 10 mg PO DAILY 04/16/21 [History] Tamsulosin HCl [Flomax] 0.4 mg PO DAILY 04/16/21 [History] allopurinoL [Zyloprim] 100 mg PO DAILY 04/16/21 [History] - CURRENT (IN HOUSE) MEDS Current Meds: Current Medications Brimonidine Tartrate (Brimonidine 0.2% Ophth Soln 5 Ml Bottle) 0 ml EYERT ASDIRECTED MARYCARMEN Stop: 06/12/21 18:00 Cefuroxime Sodium (Cefuroxime 10 Mg/Ml Syringe) 0 mg EYERT ASDIRECTED MARYCARMEN Stop: 06/12/21 18:00 Lidocaine HCl (Lidocaine 1% Pf 2 Ml Sdv) 0 ml INJECT ASDIRECTED MARYCARMEN Stop: 06/12/21 18:00 Phenylephrine HCl (Phenylephrine 2.5% Ophth Soln 2 Ml Bot) 0 ml EYERT ASDIRECTED MARYCARMEN Stop: 06/12/21 18:00 Pilocarpine HCl (Pilocarpine 4% Ophth Soln 15 Ml Bot) 0 ml EYERT ASDIRECTED MARYCARMEN Stop: 06/12/21 18:00 Polymyxin/Trimethoprim Sulfate (Polymyxin B/Trimethoprim 10 Ml Bottle) 0 ml EYERT ASDIRECTED MARYCARMEN Stop: 06/12/21 18:00 Tetracaine HCl (Tetracaine Hcl/Pf 0.5% 4 Ml Bottle) 0 ml EYEBOTH ASDIRECTED MARYCARMEN Stop: 06/12/21 18:00 Tropicamide (Tropicamide 1% Ophth Soln 15 Ml Bottle) 0 ml EYERT ASDIRECTED MARYCARMEN Stop: 06/12/21 18:00
[2021-06-12] MEDS: Polymyxin B/Trimethoprim 10 ML Bottle EYERT SCH ×4 (09:44→11:13)
[2021-06-12] MEDS: Brimonidine 0.2% Ophth Soln 5 ML Bottle EYERT SCH ×4 (09:48→11:13)
[2021-06-12] MEDS: Phenylephrine 2.5% Ophth Soln 2 ML Bot EYERT SCH ×6 (09:54→11:05)
[2021-06-12] MEDS: Tropicamide 1% Ophth Soln 15 ML Bottle EYERT SCH ×4 (10:00→10:28)
[2021-06-12] MEDS: Tetracaine HCl/PF 0.5% 4 ML Bottle EYEBOTH SCH ×3 (10:35→11:07)
[2021-06-12] MEDS: Lidocaine 1% PF 2 ML SDV INJECT SCH ×2 (10:59→11:07)
[2021-06-12] MEDS: Cefuroxime 10 MG/ML SYRINGE EYERT SCH ×2 (11:07→11:12)
[2021-06-12] MEDS: Pilocarpine 4% Ophth Soln 15 ML Bot EYERT SCH ×2 (11:08→11:13)
--- NOTE | 2021-06-12 11:14 | PCM48HPAN ---
Post Anesthesia Note - EVALUATION WITHIN 48HRS OF ANESTHETIC Vital Signs in Normal Range: Yes Patient Participated in Evaluation: Yes Respiratory Function Stable: Yes Airway Patent: Yes Cardiovascular Function Stable: Yes Hydration Status Stable: Yes Pain Control Satisfactory: Yes Nausea and Vomiting Control Satisfactory: Yes Mental Status Recovered: Yes
[2021-06-12 11:36] VITALS: BP 128/74; PULSE 62
== END 2021-06-12 11:21 | disposition home or self-care (01) ==
LOC: JD.SDS 08:36
PROVIDERS: ATTEND Ophthalmology
DX: H25.811 Combined forms of age-related cataract, right eye (principal); H02.831 Dermatochalasis of right upper eyelid; H02.834 Dermatochalasis of left upper eyelid; D23.112 Other benign neoplasm of skin of right lower eyelid, including canthus; H57.813 Brow ptosis, bilateral; D23.122 Other benign neoplasm of skin of left lower eyelid, including canthus; H21.81 Floppy iris syndrome; H21.41 Pupillary membranes, right eye; E78.00 Pure hypercholesterolemia, unspecified; I10 Essential (primary) hypertension; Z98.890 Other specified postprocedural states; Z87.891 Personal history of nicotine dependence; I48.91 Unspecified atrial fibrillation; Z79.899 Other long term (current) drug therapy; Z79.82 Long term (current) use of aspirin; Z96.1 Presence of intraocular lens
CPT/HCPCS: 66982; J0697; V2632

== ENCOUNTER 2023-03-19 18:42 | Emergency (ER) | payer MEDICARE, BC ==
[2023-03-19 19:02] LABS: EOSINOPHILS ABSOLUTE AUTO 0.09 K/mm3 (0.04-0.54); HEMATOCRIT 42.2 % (40.1-51.0); HEMOGLOBIN 13.7 gm/dl (13.7-17.5); IMMATURE GRAN ABSOLUTE AUTO 0.02 K/mm3 (0.00-0.10); IMMATURE GRAN PERCENT AUTO 0.4 % (<=1.0); LYMPHOCYTES ABSOLUTE AUTO 2.02 K/mm3 (1.32-3.57); LYMPHOCYTES PERCENT AUTO 44.7 % (21.8-53.1); MEAN CORPUSCULAR HGB CONC 32.5 g/dl (32.2-35.5); MEAN CORPUSCULAR VOLUME 107.9 fl (79.0-92.2); MEAN PLATELET VOLUME 8.6 fl (9.4-12.3); MONOCYTES ABSOLUTE AUTO 0.45 K/mm3 (0.30-0.82); NEUTROPHILS ABSOLUTE AUTO 1.94 K/mm3 (1.78-5.38); NEUTROPHILS PERCENT AUTO 42.9 % (34.0-67.9); PLATELET COUNT,PLT 110 K/mm3 (163-337); RED BLOOD CELL COUNT 3.91 M/mm3 (4.63-6.08); WHITE BLOOD CELL COUNT,WBC 4.52 K/mm3 (4.23-9.07)
[2023-03-19 19:27] LABS: A/G RATIO 1.1 (1-2); ALBUMIN 3.9 g/dl (3.4-5.0); ANION GAP 12.7 (5-15); BILIRUBIN TOTAL 0.5 mg/dL (0.2-1.0); BUN/CREATININE RATIO 11.8 (14-18); CALCIUM 9.3 mg/dL (8.5-10.1); CREATININE 1.1 mg/dL (0.7-1.3); EST CRCL DRUG DOSING (CG) 58.92 mL/min; POTASSIUM,K 3.7 mEq/L (3.5-5.1); PROTEIN TOTAL,TP 7.4 g/dl (6.4-8.2)
[2023-03-19 20:43] VITALS: BP 115/69
[2023-03-19 20:54] VITALS: PULSE 66
== END 2023-03-19 20:49 | disposition home or self-care (01) ==
LOC: JD.ED 18:42
DX: T82.897A Other specified complication of cardiac prosthetic devices, implants and grafts, initial encounter (principal); I48.91 Unspecified atrial fibrillation; E78.00 Pure hypercholesterolemia, unspecified; I10 Essential (primary) hypertension; M10.9 Gout, unspecified; E66.9 Obesity, unspecified; Z79.82 Long term (current) use of aspirin; Z79.899 Other long term (current) drug therapy; Z87.891 Personal history of nicotine dependence; Z68.35 Body mass index [BMI] 35.0-35.9, adult
CPT/HCPCS: 36415; 71045; 71045-26; 80053; 85025; 93005; 93010; 99283; 99284